=== PATIENT | female | born 1945 | race Caucasian/White ===

== ENCOUNTER 2018-12-24 14:04 | Inpatient (IN) | payer MEDICARE, SELFPAY ==
[2018-12-24] VITALS (7 sets, daily range): BP systolic 127–138; BP diastolic 43–116; PULSE 84–90; RESP 16–20; TEMP 36.7–37.8; O2SAT 92–99; BMI 39.4
--- NOTE | 2018-12-24 14:36 | ED_ITS ---
HPI - Nausea/Vomiting/Diarrhea <JOELLE Taylor - Last Filed: 12/24/18 22:13> General Chief complaint: Nausea/Vomiting/Diarrhea Stated complaint: diarrhea x 2days Time Seen by Provider: 12/24/18 14:23 Source: patient and EMS Mode of arrival: EMS Limitations: no limitations History of Present Illness HPI Narrative: 73-year-old female with history of hypothyroidism and is a nonsmoker here for complaint of diarrhea over the last 2 weeks. She states that she was treated for diarrhea by primary care provider and has not had diarrhea for a couple of days ago. she reports increased weakness today were she was having trouble getting out of bed and has had incontinence today. She denies having any urinary symptoms. No flank pain. She denies having any abdominal pain. She states she has had a positive p.o. intake today and has tolerated well. She states her last bowel movement was a couple of days ago. She denies any bloody diarrhea. She denies any recent travel or recent antibiotics. MD complaint: diarrhea Related Data Home Medications Medication Instructions Recorded Confirmed gabapentin 100 mg PO DAILY 12/24/18 12/24/18 levothyroxine 175 mcg PO DAILY 12/24/18 12/24/18 meloxicam 15 mg PO DAILY 12/24/18 12/24/18 trazodone 50 - 100 mg PO BEDTIME 12/24/18 12/24/18 Allergies Allergy/AdvReac Type Severity Reaction Status Date / Time morphine Allergy Verified 12/24/18 14:17 Review of Systems <JOELLE Taylor - Last Filed: 12/24/18 22:13> Constitutional Denies chills, Denies fever(s), Denies lethargy and Reports weakness Eyes Denies change in vision, Denies eye discharge, Denies irritation and Denies loss of vision ENT Ears, Nose, Mouth, and Throat: Denies change in voice, Denies neck pain and Denies sore throat Cardiovascular Denies chest pain, Denies irregular heart rhythm, Denies lightheadedness, Denies palpitations, Denies dyspnea, Denies dyspnea on exertion and Denies orthopnea Respiratory Denies cough, Denies dyspnea, Denies dyspnea on exertion and Denies wheezing Gastrointestinal Gastrointestinal: Reports diarrhea Genitourinary Denies hematuria, Denies flank pain, Denies urinary incontinence and Denies urinary urgency Musculoskeletal Denies neck pain Integumentary/Breasts Denies pruritus, Denies erythema, Denies rash and Denies wounds Neurologic Denies confusion, Denies loss of vision and Reports weakness Psychiatric Denies anxiety, Denies confusion, Denies depression, Denies homicidal ideation and Denies suicidal ideation Endocrine Denies palpitations Allergic/Immunologic Denies wheezing PFSH <JOELLE Taylor - Last Filed: 12/24/18 22:13> Surgical History History of tonsillectomy Family History Mother Alcohol abuse Family History Mother Alcohol abuse Social History household members: family Smoking Status: Never smoker alcohol intake: never Exam <JOELLE Taylor - Last Filed: 12/24/18 22:13> Initial Vital Signs Initial Vital Signs: Vital Signs Temperature 100.0 F H 12/24/18 14:10 Pulse Rate 89 12/24/18 14:10 Respiratory Rate 20 12/24/18 14:10 Blood Pressure 130/116 H 12/24/18 14:10 Pulse Oximetry 94 12/24/18 14:10 Const General: cooperative and well developed Nutritional Appearance: well nourished Orientation: alert, awake, oriented x3 and not confused HENMT Mouth: oral mucosae normal and No moist mucous membranes Eyes Conjunctivae: conjunctivae normal Sclera: sclerae normal Pupils: PERRL EOM: EOM intact bilaterally Resp Effort & Inspection: normal respiratory effort, able to speak in complete sentences, no respiratory distress and no use of accessory muscles Auscultation: clear to auscultation bilaterally, no rales, no rhonchi and no wheezes Cardio Rate: regular rate Rhythm: regular rhythm Heart Sounds: no click, no gallops, no murmurs and no rubs Pulses: normal peripheral pulses GI Inspection: non-distended Palpation: soft, no hepatosplenomegaly, No guarding, No pulsatile mass and No tender Auscultation: normal bowel sounds General: No CVA tenderness Skin General: no rashes or lesions noted, No jaundice and No petechiae Neuro General: alert, oriented x3, gait normal and no focal motor deficits Speech: speech normal <Ama Adler DO - Last Filed: 12/25/18 08:31> Initial Vital Signs Initial Vital Signs: Vital Signs Temperature 100.0 F H 12/24/18 14:10 Pulse Rate 89 12/24/18 14:10 Respiratory Rate 20 12/24/18 14:10 Blood Pressure 130/116 H 12/24/18 14:10 Pulse Oximetry 94 12/24/18 14:10 Course <JOELLE Taylor - Last Filed: 12/24/18 22:13> Orders Ordered: ED Orders 12/25/18 01:41 GI Panel (Film Array) Stat Stool Culture Stat 12/25/18 05:53 Basic Metabolic Panel Routine Complete Blood Count AUTO DIFF Routine Acetaminophen (Tylenol) 650 mg PO Q6HR PRN PRN Reason: As Needed for Fever/Mild Pain Sodium Chloride (Normal Saline 0.45%) 1,000 mls @ 150 mls/hr IV CONT ALIN Last Admin: 12/25/18 02:20 Dose: 150 mls/hr Infusion: 12/25/18 02:20 Dose: 150 mls/hr Admin: 12/24/18 20:30 Dose: 150 mls/hr Magnesium Hydroxide (Milk Of Magnesia) 30 ml PO DAILY PRN PRN Reason: Constipation Discontinued Medications Sodium Chloride (Normal Saline 0.9%) 1,000 mls @ 1,000 mls/hr IV BOLUS ONE Stop: 12/24/18 15:14 Last Infusion: 12/24/18 16:47 Dose: 0 mls/hr Admin: 12/24/18 15:30 Dose: 1,000 mls/hr Sodium Chloride (Normal Saline 0.9%) 1,000 mls @ 1,000 mls/hr IV BOLUS ONE Stop: 12/24/18 16:08 Last Infusion: 12/24/18 18:49 Dose: 0 mls/hr Admin: 12/24/18 16:46 Dose: 1,000 mls/hr Ciprofloxacin (Cipro) 400 mg in 200 mls @ 200 mls/hr IV NOW ALIN Sodium Chloride (Normal Saline 0.9%) 1,000 mls @ 1,000 mls/hr IV BOLUS ONE Stop: 12/24/18 19:45 Last Admin: 12/24/18 19:23 Dose: 1,000 mls/hr Ondansetron HCl (Zofran) 4 mg IV NOW ONE Stop: 12/24/18 14:16 Last Admin: 12/24/18 16:46 Dose: Not Given Vital Signs - 8 hr 12/25/18 01:41 12/25/18 02:48 12/25/18 06:00 Temperature 97.3 F L Pulse Rate 79 Respiratory Rate 16 Blood Pressure 123/69 Pulse Oximetry 95 97 96 12/25/18 07:44 Temperature 97.9 F Pulse Rate 82 Respiratory Rate 21 Blood Pressure 120/62 Pulse Oximetry 93 <Ama Adler, DO - Last Filed: 12/25/18 08:31> Orders Ordered: ED Orders 12/25/18 01:41 GI Panel (Film Array) Stat Stool Culture Stat 12/25/18 05:53 Basic Metabolic Panel Routine Complete Blood Count AUTO DIFF Routine Acetaminophen (Tylenol) 650 mg PO Q6HR PRN PRN Reason: As Needed for Fever/Mild Pain Sodium Chloride (Normal Saline 0.45%) 1,000 mls @ 150 mls/hr IV CONT ALIN Last Admin: 12/25/18 02:20 Dose: 150 mls/hr Infusion: 12/25/18 02:20 Dose: 150 mls/hr Admin: 12/24/18 20:30 Dose: 150 mls/hr Magnesium Hydroxide (Milk Of Magnesia) 30 ml PO DAILY PRN PRN Reason: Constipation Discontinued Medications Sodium Chloride (Normal Saline 0.9%) 1,000 mls @ 1,000 mls/hr IV BOLUS ONE Stop: 12/24/18 15:14 Last Infusion: 12/24/18 16:47 Dose: 0 mls/hr Admin: 12/24/18 15:30 Dose: 1,000 mls/hr Sodium Chloride (Normal Saline 0.9%) 1,000 mls @ 1,000 mls/hr IV BOLUS ONE Stop: 12/24/18 16:08 Last Infusion: 12/24/18 18:49 Dose: 0 mls/hr Admin: 12/24/18 16:46 Dose: 1,000 mls/hr Ciprofloxacin (Cipro) 400 mg in 200 mls @ 200 mls/hr IV NOW ALIN Sodium Chloride (Normal Saline 0.9%) 1,000 mls @ 1,000 mls/hr IV BOLUS ONE Stop: 12/24/18 19:45 Last Admin: 12/24/18 19:23 Dose: 1,000 mls/hr Ondansetron HCl (Zofran) 4 mg IV NOW ONE Stop: 12/24/18 14:16 Last Admin: 12/24/18 16:46 Dose: Not Given Vital Signs - 8 hr 12/25/18 01:41 12/25/18 02:48 12/25/18 06:00 Temperature 97.3 F L Pulse Rate 79 Respiratory Rate 16 Blood Pressure 123/69 Pulse Oximetry 95 97 96 12/25/18 07:44 Temperature 97.9 F Pulse Rate 82 Respiratory Rate 21 Blood Pressure 120/62 Pulse Oximetry 93 MDM - Nausea/Vomiting/Diarrhea <OJELLE Taylor - Last Filed: 12/24/18 22:13> Lab Data Result diagrams: 12/25/18 05:53 12/25/18 05:53 Lab Results 12/24/18 12/24/18 12/24/18 Range/Units 14:36 14:36 14:36 WBC 12.4 H (4.5-11.0) X10^3/uL RBC 5.04 (4.0-5.2) X10^6/uL Hgb 14.8 (12.0-16.0) g/dL Hct 44.2 (36-46) % MCV 87.8 (80-100) fL MCH 29.3 (26-34) PG MCHC 33.4 (30-36) % RDW 14.8 (11.6-14.8) % Plt Count 149 L (150-400) X10^3/uL Neut % (Auto) Not Reportable Lymph % (Auto) Not Reportable [place] % (Auto) Not Reportable Eos % (Auto) Not Reportable Baso % (Auto) Not Reportable Neut # (Auto) (7948-9037) /uL Lymph # (Auto) Not Reportable [place] # (Auto) Not Reportable Eos # (Auto) (0-450) /uL Baso # (Auto) Not Reportable Total Counted 100 Seg Neutrophils % 64.0 (38-70) % Band Neutrophils % 10.0 H (3-7) % Lymphocytes % (Manual) 14.0 L (25-45) % Atypical Lymphs % 7.0 H ( - 0) % Monocytes % (Manual) 4.0 (2-11) % Eosinophils % (Manual) 1.0 L (2-4) % Neutrophils # (Manual) 9176 H (4632-4676) /uL Platelet Estimate Adequate on smear RBC Morphology Normal morphology Sodium 132 L (137-145) mmol/L Potassium 4.7 (3.4-5.1) mmol/L Chloride 99 (98-107) mmol/L Carbon Dioxide 20 L (22-32) mmol/L BUN 117 H* (7-17) mg/dL Creatinine 2.60 H (0.52-1.04) mg/dL Estimated GFR 18.0 L (>60) mL/min BUN/Creatinine Ratio 45.0 H (6-22) Glucose 119 H (80-110) mg/dL Lactate (0.7-2.1) mmol/L Calcium 8.1 L (8.4-10.2) mg/dL Total Bilirubin 0.8 (0.2-1.3) mg/dL AST 57 H (14-36) IU/L ALT 35 (9-52) IU/L Alkaline Phosphatase 59 (38-126) U/L Total Creatine Kinase 22 L (30-135) U/L CK-MB (CK-2) TNP CK-MB (CK-2) Rel Index TNP Troponin I < 0.012 (0.01-0.034) ng/mL Total Protein 7.2 (6.3-8.2) g/dL Albumin 3.2 L (3.5-5.0) g/dL Globulin 4.0 (1.7-4.1) g/dL Albumin/Globulin Ratio 0.8 L (1.0-2.8) Procalcitonin (<0.5) ng/mL Urine Color Urine Appearance Urine pH (4.5-8.0) Ur Specific [place] (1.000-1.035) Urine Protein (Negative) Urine Glucose (UA) (Negative) g/dL Urine Ketones (NEGATIVE) Urine Occult Blood (Negative) Urine Nitrate (Negative) Urine Bilirubin (NEGATIVE) Urine Ictotest (Negative) Urine Urobilinogen (0.2) E.U./dL Ur Leukocyte Esterase (NEGATIVE) Urine RBC (0-5/HPF) Urine WBC (0-5/HPF) Amorphous Sediment Urine Bacteria (None) Hyaline Casts (None) Ur Culture Indicated? 12/24/18 12/24/18 12/24/18 Range/Units 14:36 14:36 17:25 WBC (4.5-11.0) X10^3/uL RBC (4.0-5.2) X10^6/uL Hgb (12.0-16.0) g/dL Hct (36-46) % MCV (80-100) fL MCH (26-34) PG MCHC (30-36) % RDW (11.6-14.8) % Plt Count (150-400) X10^3/uL Neut % (Auto) Lymph % (Auto) [place] % (Auto) Eos % (Auto) Baso % (Auto) Neut # (Auto) (5554-0609) /uL Lymph # (Auto) [place] # (Auto) Eos # (Auto) (0-450) /uL Baso # (Auto) Total Counted Seg Neutrophils % (38-70) % Band Neutrophils % (3-7) % Lymphocytes % (Manual) (25-45) % Atypical Lymphs % ( - 0) % Monocytes % (Manual) (2-11) % Eosinophils % (Manual) (2-4) % Neutrophils # (Manual) (6768-0536) /uL Platelet Estimate RBC Morphology Sodium (137-145) mmol/L Potassium (3.4-5.1) mmol/L Chloride (98-107) mmol/L Carbon Dioxide (22-32) mmol/L BUN (7-17) mg/dL Creatinine (0.52-1.04) mg/dL Estimated GFR (>60) mL/min BUN/Creatinine Ratio (6-22) Glucose (80-110) mg/dL Lactate 1.3 (0.7-2.1) mmol/L Calcium (8.4-10.2) mg/dL Total Bilirubin (0.2-1.3) mg/dL AST (14-36) IU/L ALT (9-52) IU/L Alkaline Phosphatase (38-126) U/L Total Creatine Kinase (30-135) U/L CK-MB (CK-2) CK-MB (CK-2) Rel Index Troponin I (0.01-0.034) ng/mL Total Protein (6.3-8.2) g/dL Albumin (3.5-5.0) g/dL Globulin (1.7-4.1) g/dL Albumin/Globulin Ratio (1.0-2.8) Procalcitonin 0.54 H (<0.5) ng/mL Urine Color Yellow Urine Appearance Cloudy Urine pH 5.0 (4.5-8.0) Ur Specific [place] 1.025 (1.000-1.035) Urine Protein 3+ H (Negative) Urine Glucose (UA) Negative (Negative) g/dL Urine Ketones Negative (NEGATIVE) Urine Occult Blood 3+ H (Negative) Urine Nitrate Negative (Negative) Urine Bilirubin 1+ H (NEGATIVE) Urine Ictotest Positive H (Negative) Urine Urobilinogen 0.2 (0.2) E.U./dL Ur Leukocyte Esterase Trace H (NEGATIVE) Urine RBC 10-30/hpf H (0-5/HPF) Urine WBC 5-10/hpf H (0-5/HPF) Amorphous Sediment 2+ Urine Bacteria None seen (None) Hyaline Casts 5-10/lpf (None) Ur Culture Indicated? Specimen cultured 12/25/18 12/25/18 Range/Units 05:53 05:53 WBC 8.3 (4.5-11.0) X10^3/uL RBC 4.57 (4.0-5.2) X10^6/uL Hgb 13.4 (12.0-16.0) g/dL Hct 40.1 (36-46) % MCV 87.7 (80-100) fL MCH 29.2 (26-34) PG MCHC 33.4 (30-36) % RDW 15.1 H (11.6-14.8) % Plt Count 156 (150-400) X10^3/uL Neut % (Auto) 71.1 Lymph % (Auto) 21.4 L [place] % (Auto) 5.7 Eos % (Auto) 0.7 L Baso % (Auto) 1.1 Neut # (Auto) 5900 (2604-0977) /uL Lymph # (Auto) 1800 [place] # (Auto) 500 Eos # (Auto) 100 (0-450) /uL Baso # (Auto) 100 Total Counted Seg Neutrophils % (38-70) % Band Neutrophils % (3-7) % Lymphocytes % (Manual) (25-45) % Atypical Lymphs % ( - 0) % Monocytes % (Manual) (2-11) % Eosinophils % (Manual) (2-4) % Neutrophils # (Manual) (6725-8879) /uL Platelet Estimate RBC Morphology Sodium 129 L (137-145) mmol/L Potassium 4.8 (3.4-5.1) mmol/L Chloride 102 (98-107) mmol/L Carbon Dioxide 17 L (22-32) mmol/L BUN 114 H* (7-17) mg/dL Creatinine 2.50 H (0.52-1.04) mg/dL Estimated GFR 18.9 L (>60) mL/min BUN/Creatinine Ratio 45.6 H (6-22) Glucose 117 H (80-110) mg/dL Lactate (0.7-2.1) mmol/L Calcium 7.4 L (8.4-10.2) mg/dL Total Bilirubin (0.2-1.3) mg/dL AST (14-36) IU/L ALT (9-52) IU/L Alkaline Phosphatase (38-126) U/L Total Creatine Kinase (30-135) U/L CK-MB (CK-2) CK-MB (CK-2) Rel Index Troponin I (0.01-0.034) ng/mL Total Protein (6.3-8.2) g/dL Albumin (3.5-5.0) g/dL Globulin (1.7-4.1) g/dL Albumin/Globulin Ratio (1.0-2.8) Procalcitonin (<0.5) ng/mL Urine Color Urine Appearance Urine pH (4.5-8.0) Ur Specific [place] (1.000-1.035) Urine Protein (Negative) Urine Glucose (UA) (Negative) g/dL Urine Ketones (NEGATIVE) Urine Occult Blood (Negative) Urine Nitrate (Negative) Urine Bilirubin (NEGATIVE) Urine Ictotest (Negative) Urine Urobilinogen (0.2) E.U./dL Ur Leukocyte Esterase (NEGATIVE) Urine RBC (0-5/HPF) Urine WBC (0-5/HPF) Amorphous Sediment Urine Bacteria (None) Hyaline Casts (None) Ur Culture Indicated? Imaging Data CT scan - abdomen: Radiologist's impression: [address] [place] [id number] Scan Report Signed Patient: Daniela De Souza BMR#: [id number] : 5Acct:[id number] Age/Sex: 73 / FDate of Service: 12/24/18 Loc: ED Accession Number: [id number] Procedure: CT abdomen pelvis wo con Ordering Provider: Ar Arguelles PROCEDURE: CT ABDOMEN PELVIS WO CON INDICATIONS: weakness, diarrhea, elevated BUN decreased GFR TECHNIQUE: Noncontrast 5 mm thick sections acquired from the diaphragms to the symphysis. 5 mm coronal and sagittal reformats were then performed. For radiation dose reduction, the following was used: automated exposure control, adjustment of mA and/or kV according to patient size. COMPARISON: None. FINDINGS: Image quality: There is motion artifact limiting evaluation.. ABDOMEN: Lung bases: A small right pleural effusion is demonstrated with mild associated compressive atelectasis. Mild dependent atelectasis also demonstrated in the left base. Heart size is normal. Solid organs: The liver is nodular in contour suggestive of cirrhosis. Noncontrast evaluation demonstrates no definite focal hepatic lesions. There are a few small dependent calcified gallstones in the gallbladder which is partially distended. Suggestion of mild gallbladder wall thickening which is nonspecific. Pancreas is normal in contours. Spleen is enlarged, measuring up to 14.5 cm. No adrenal nodules. Kidneys demonstrate no hydronephrosis. Peritoneum and bowel: Small bowel loops demonstrate normal wall thickness and caliber. There is short segment of mild wall thickening involving the ascending and sigmoid colon suggestive of a mild nonspecific colitis. There is colonic diverticulosis without acute diverticulitis. A small amount of free fluid is demonstrated within the abdomen and pelvis. Nodes and vessels: No retroperitoneal or mesenteric adenopathy by size criteria. Aorta and inferior vena cava are normal in caliber. There are multiple prominent splenic varices. There also prominent varices within the left paracolic gutter. Miscellaneous: No ventral hernias. PELVIS: Genitourinary: Bladder wall thickness is normal. Miscellaneous: No inguinal hernias or adenopathy. Bones: No suspicious bony lesions. No vertebral body compression fractures. IMPRESSION: 1. Mild segmental wall thickening involving the ascending and sigmoid colon suggestive of a mild infectious or inflammatory colitis. There is colonic diverticulosis without definite acute diverticulitis. 2. Small right pleural effusion. 3. Findings consistent with cirrhosis and portal hypertension including spinal megaly, prominent varices, and mild ascites. 4. Cholelithiasis without definite CT evidence of cholecystitis. Further evaluation maybe obtained with ultrasound if clinically indicated. Dictated by: rTistian Francisco M.D. on 12/24/2018 at 15:48 Approved by: Tristian Francisco M.D. on 12/24/2018 at 15:52 CT scan - head: Radiologist's impression: [address] [address] [address] Scan Report Signed Patient: Daniela De Souza BMR#: [id number] : 5Acct:[id number] Age/Sex: 73 / FDate of Service: 12/24/18 Loc: ED Accession Number: [id number] Procedure: CT head/brain wo con Ordering Provider: Ar Arguelles PROCEDURE: CT HEAD/BRAIN WO CON INDICATIONS: Weakness TECHNIQUE: Noncontrast 4.5 mm thick angled axial sections acquired from the foramen magnum to the vertex, with coronal and sagittal reformats. For radiation dose reduction, the following was used: automated exposure control, adjustment of mA and/or kV according to patient size. COMPARISON: [facility], CR, XR CHEST 1V, 12/24/2018, 15:13. [facility], CT, SINUS SCREEN, 02/24/2008, 8:19. FINDINGS: Image quality: This examination is limited by involuntary motion artifact. CSF spaces: Basal cisterns are patent. No extra-axial fluid collections. The ventricles are symmetric in size and shape. Brain: No intracranial bleeds or masses. There is cerebral volume loss for age, with resultant ventricular and sulcal prominence. There are periventricular and deep white matter chronic small vessel ischemic changes. There is intracranial internal carotid artery atherosclerosis. Skull and face: Calvarium and visualized facial bones appear intact, without suspicious lesions. Sinuses: Visualized sinuses and mastoids are clear. IMPRESSION: No definite, acute intracranial abnormality is seen. Note is made of age-appropriate brain parenchymal volume loss and chronic small vessel ischemic changes. Dictated by: Negro Zepeda M.D. on 12/24/2018 at 14:43 Approved by: Negro Zepeda M.D. on 12/24/2018 at 14:44 Chest x-ray: Radiologist's impression: [address] [address] XRay Report Signed Patient: Daniela De Souza BMR#: [id number] : 5Acct:[id number] Age/Sex: 73 / FDate of Service: 12/24/18 Loc: ED Accession Number: [id number] Procedure: XR chest 1V Ordering Provider: Ar Arguelles PROCEDURE: XR CHEST 1V INDICATIONS: weakness TECHNIQUE: One view of the chest was acquired. COMPARISON: None. FINDINGS: Surgical changes and devices: None. Lungs and pleura: Increased pulmonary vascularity is present. No pleural effusions or pneumothorax. Mediastinum: Mediastinal contours appear normal. Heart size is normal. Bones and chest wall: No suspicious bony lesions. Overlying soft tissues appear unremarkable. IMPRESSION: Increased vascularity suggestive of edema. Dictated by: Serena Walter M.D. on 12/24/2018 at 15:36 Approved by: Serena Walter M.D. on 12/24/2018 at 15:36 ECG Data Interpretation: EKG shows sinus rhythm with no ST elevation or depression. No ectopy. Ventricular rate of 88. Pr interval 170. QRS duration of 81. QTC 393. MDM Narrative Medical decision making narrative: CBC was obtained shows elevated white count of 12.4. Also shows elevated neutrophils otherwise is unremarkable. Shows critical elevated BUN of 117. Also with decreased GFR of 18. procalcitonin was 0.54. Lactate was normal. EKG shows sinus rhythm with no ST elevation or depression. Chest x-ray was unremarkable. cardiac enzymes were obtained were unremarkable. Urinalysis is pending. CT of the abdomen shows colonic wall thickening indicating inflammation/ infection. suspect diarrhea causing dehydration and renal failure. She is admitted for rehydration and possible IV antibiotics for treatment. hospitalist accepted patient <Ama Adler DO - Last Filed: 12/25/18 08:31> Lab Data Lab Results 12/24/18 12/24/18 12/24/18 Range/Units 14:36 14:36 14:36 WBC 12.4 H (4.5-11.0) X10^3/uL RBC 5.04 (4.0-5.2) X10^6/uL Hgb 14.8 (12.0-16.0) g/dL Hct 44.2 (36-46) % MCV 87.8 (80-100) fL MCH 29.3 (26-34) PG MCHC 33.4 (30-36) % RDW 14.8 (11.6-14.8) % Plt Count 149 L (150-400) X10^3/uL Neut % (Auto) Not Reportable Lymph % (Auto) Not Reportable [place] % (Auto) Not Reportable Eos % (Auto) Not Reportable Baso % (Auto) Not Reportable Neut # (Auto) (8854-6833) /uL Lymph # (Auto) Not Reportable [place] # (Auto) Not Reportable Eos # (Auto) (0-450) /uL Baso # (Auto) Not Reportable Total Counted 100 Seg Neutrophils % 64.0 (38-70) % Band Neutrophils % 10.0 H (3-7) % Lymphocytes % (Manual) 14.0 L (25-45) % Atypical Lymphs % 7.0 H ( - 0) % Monocytes % (Manual) 4.0 (2-11) % Eosinophils % (Manual) 1.0 L (2-4) % Neutrophils # (Manual) 9176 H (4663-3534) /uL Platelet Estimate Adequate on smear RBC Morphology Normal morphology Sodium 132 L (137-145) mmol/L Potassium 4.7 (3.4-5.1) mmol/L Chloride 99 (98-107) mmol/L Carbon Dioxide 20 L (22-32) mmol/L BUN 117 H* (7-17) mg/dL Creatinine 2.60 H (0.52-1.04) mg/dL Estimated GFR 18.0 L (>60) mL/min BUN/Creatinine Ratio 45.0 H (6-22) Glucose 119 H (80-110) mg/dL Lactate (0.7-2.1) mmol/L Calcium 8.1 L (8.4-10.2) mg/dL Total Bilirubin 0.8 (0.2-1.3) mg/dL AST 57 H (14-36) IU/L ALT 35 (9-52) IU/L Alkaline Phosphatase 59 (38-126) U/L Total Creatine Kinase 22 L (30-135) U/L CK-MB (CK-2) TNP CK-MB (CK-2) Rel Index TNP Troponin I < 0.012 (0.01-0.034) ng/mL Total Protein 7.2 (6.3-8.2) g/dL Albumin 3.2 L (3.5-5.0) g/dL Globulin 4.0 (1.7-4.1) g/dL Albumin/Globulin Ratio 0.8 L (1.0-2.8) Procalcitonin (<0.5) ng/mL Urine Color Urine Appearance Urine pH (4.5-8.0) Ur Specific [place] (1.000-1.035) Urine Protein (Negative) Urine Glucose (UA) (Negative) g/dL Urine Ketones (NEGATIVE) Urine Occult Blood (Negative) Urine Nitrate (Negative) Urine Bilirubin (NEGATIVE) Urine Ictotest (Negative) Urine Urobilinogen (0.2) E.U./dL Ur Leukocyte Esterase (NEGATIVE) Urine RBC (0-5/HPF) Urine WBC (0-5/HPF) Amorphous Sediment Urine Bacteria (None) Hyaline Casts (None) Ur Culture Indicated? 12/24/18 12/24/18 12/24/18 Range/Units 14:36 14:36 17:25 WBC (4.5-11.0) X10^3/uL RBC (4.0-5.2) X10^6/uL Hgb (12.0-16.0) g/dL Hct (36-46) % MCV (80-100) fL MCH (26-34) PG MCHC (30-36) % RDW (11.6-14.8) % Plt Count (150-400) X10^3/uL Neut % (Auto) Lymph % (Auto) [place] % (Auto) Eos % (Auto) Baso % (Auto) Neut # (Auto) (5210-6040) /uL Lymph # (Auto) [place] # (Auto) Eos # (Auto) (0-450) /uL Baso # (Auto) Total Counted Seg Neutrophils % (38-70) % Band Neutrophils % (3-7) % Lymphocytes % (Manual) (25-45) % Atypical Lymphs % ( - 0) % Monocytes % (Manual) (2-11) % Eosinophils % (Manual) (2-4) % Neutrophils # (Manual) (7682-0429) /uL Platelet Estimate RBC Morphology Sodium (137-145) mmol/L Potassium (3.4-5.1) mmol/L Chloride (98-107) mmol/L Carbon Dioxide (22-32) mmol/L BUN (7-17) mg/dL Creatinine (0.52-1.04) mg/dL Estimated GFR (>60) mL/min BUN/Creatinine Ratio (6-22) Glucose (80-110) mg/dL Lactate 1.3 (0.7-2.1) mmol/L Calcium (8.4-10.2) mg/dL Total Bilirubin (0.2-1.3) mg/dL AST (14-36) IU/L ALT (9-52) IU/L Alkaline Phosphatase (38-126) U/L Total Creatine Kinase (30-135) U/L CK-MB (CK-2) CK-MB (CK-2) Rel Index Troponin I (0.01-0.034) ng/mL Total Protein (6.3-8.2) g/dL Albumin (3.5-5.0) g/dL Globulin (1.7-4.1) g/dL Albumin/Globulin Ratio (1.0-2.8) Procalcitonin 0.54 H (<0.5) ng/mL Urine Color Yellow Urine Appearance Cloudy Urine pH 5.0 (4.5-8.0) Ur Specific [place] 1.025 (1.000-1.035) Urine Protein 3+ H (Negative) Urine Glucose (UA) Negative (Negative) g/dL Urine Ketones Negative (NEGATIVE) Urine Occult Blood 3+ H (Negative) Urine Nitrate Negative (Negative) Urine Bilirubin 1+ H (NEGATIVE) Urine Ictotest Positive H (Negative) Urine Urobilinogen 0.2 (0.2) E.U./dL Ur Leukocyte Esterase Trace H (NEGATIVE) Urine RBC 10-30/hpf H (0-5/HPF) Urine WBC 5-10/hpf H (0-5/HPF) Amorphous Sediment 2+ Urine Bacteria None seen (None) Hyaline Casts 5-10/lpf (None) Ur Culture Indicated? Specimen cultured 12/25/18 12/25/18 Range/Units 05:53 05:53 WBC 8.3 (4.5-11.0) X10^3/uL RBC 4.57 (4.0-5.2) X10^6/uL Hgb 13.4 (12.0-16.0) g/dL Hct 40.1 (36-46) % MCV 87.7 (80-100) fL MCH 29.2 (26-34) PG MCHC 33.4 (30-36) % RDW 15.1 H (11.6-14.8) % Plt Count 156 (150-400) X10^3/uL Neut % (Auto) 71.1 Lymph % (Auto) 21.4 L [place] % (Auto) 5.7 Eos % (Auto) 0.7 L Baso % (Auto) 1.1 Neut # (Auto) 5900 (7743-0003) /uL Lymph # (Auto) 1800 [place] # (Auto) 500 Eos # (Auto) 100 (0-450) /uL Baso # (Auto) 100 Total Counted Seg Neutrophils % (38-70) % Band Neutrophils % (3-7) % Lymphocytes % (Manual) (25-45) % Atypical Lymphs % ( - 0) % Monocytes % (Manual) (2-11) % Eosinophils % (Manual) (2-4) % Neutrophils # (Manual) (8081-4418) /uL Platelet Estimate RBC Morphology Sodium 129 L (137-145) mmol/L Potassium 4.8 (3.4-5.1) mmol/L Chloride 102 (98-107) mmol/L Carbon Dioxide 17 L (22-32) mmol/L BUN 114 H* (7-17) mg/dL Creatinine 2.50 H (0.52-1.04) mg/dL Estimated GFR 18.9 L (>60) mL/min BUN/Creatinine Ratio 45.6 H (6-22) Glucose 117 H (80-110) mg/dL Lactate (0.7-2.1) mmol/L Calcium 7.4 L (8.4-10.2) mg/dL Total Bilirubin (0.2-1.3) mg/dL AST (14-36) IU/L ALT (9-52) IU/L Alkaline Phosphatase (38-126) U/L Total Creatine Kinase (30-135) U/L CK-MB (CK-2) CK-MB (CK-2) Rel Index Troponin I (0.01-0.034) ng/mL Total Protein (6.3-8.2) g/dL Albumin (3.5-5.0) g/dL Globulin (1.7-4.1) g/dL Albumin/Globulin Ratio (1.0-2.8) Procalcitonin (<0.5) ng/mL Urine Color Urine Appearance Urine pH (4.5-8.0) Ur Specific [place] (1.000-1.035) Urine Protein (Negative) Urine Glucose (UA) (Negative) g/dL Urine Ketones (NEGATIVE) Urine Occult Blood (Negative) Urine Nitrate (Negative) Urine Bilirubin (NEGATIVE) Urine Ictotest (Negative) Urine Urobilinogen (0.2) E.U./dL Ur Leukocyte Esterase (NEGATIVE) Urine RBC (0-5/HPF) Urine WBC (0-5/HPF) Amorphous Sediment Urine Bacteria (None) Hyaline Casts (None) Ur Culture Indicated? Discharge Plan Departure Patient Disposition: Admitted As Inpatient Clinical Impression: Dehydration Diarrhea Qualifiers: Diarrhea type: unspecified type Qualified Code(s): R19.7 - Diarrhea, unspecified Acute renal failure Qualifiers: Acute renal failure type: unspecified Qualified Code(s): N17.9 - Acute kidney failure, unspecified Discharge Date/Time: 12/24/18 18:51 Interventions: ED Discharge Assessment Last Done: 12/24/18 18:48 Admit Date/Time: 12/24/18 17:39 Admit Provider: Herson Williamson <Ama Adler DO - Last Filed: 12/25/18 08:31> Cosign ED Attending Cosignature Attestation: I was immediately available in the department for consultation, case was discussed, plan for admission to Dr. Williamson. This documentation has been reviewed and I agree with assessment and plan. Supervised by Ama Adler DO
[2018-12-24 14:57] LABS: Alanine Aminotransferase 35 IU/L (9-52); Albumin 3.2 g/dL (3.5-5.0); Albumin Globulin Ratio 0.8 (1.0-2.8); Alkaline Phosphatase 59 U/L (38-126); Aspartate Aminotransferase 57 IU/L (14-36); Bilirubin Total 0.8 mg/dL (0.2-1.3); Calcium 8.1 mg/dL (8.4-10.2); Carbon Dioxide 20 mmol/L (22-32); Chloride 99 mmol/L (98-107); Glucose 119 mg/dL (80-110); HEMOLYSIS < 15 (0-50); Potassium 4.7 mmol/L (3.4-5.1); Sodium 132 mmol/L (137-145); Total Protein 7.2 g/dL (6.3-8.2)
[2018-12-24 14:58] LABS: Hematocrit 44.2 % (36-46); Hemoglobin 14.8 g/dL (12.0-16.0); Mean Corpuscular HGB Conc 33.4 % (30-36); Mean Corpuscular Hemoglobin 29.3 PG (26-34); Mean Corpuscular Volume 87.8 fL (80-100); Platelet Count 149 X10^3/uL (150-400); Red Blood Cell Count 5.04 X10^6/uL (4.0-5.2); Red Cell Distribution Width 14.8 % (11.6-14.8); White Blood Cell Count 12.4 X10^3/uL (4.5-11.0)
[2018-12-24 15:00] LABS: Blood Urea Nitrogen 117 mg/dL (7-17)
[2018-12-24 15:01] LABS: Add Manual Diff / Slide Review YES
[2018-12-24 15:07] LABS: Neutrophils Absolute Manual 9176 /uL (3000-5900); Total Cells Counted 100
[2018-12-24 15:09] LABS: Platelet Estimate Adequate on smear; RBC Morphology Normal Morphology
--- NOTE | 2018-12-24 15:09 | DI.CT.S_ITS ---
PROCEDURE: CT HEAD/BRAIN WO CON INDICATIONS: Weakness TECHNIQUE: Noncontrast 4.5 mm thick angled axial sections acquired from the foramen magnum to the vertex, with coronal and sagittal reformats. For radiation dose reduction, the following was used: automated exposure control, adjustment of mA and/or kV according to patient size. COMPARISON: [facility], CR, XR CHEST 1V, 12/24/2018, 15:13. [facility], CT, SINUS SCREEN, 02/24/2008, 8:19. FINDINGS: Image quality: This examination is limited by involuntary motion artifact. CSF spaces: Basal cisterns are patent. No extra-axial fluid collections. The ventricles are symmetric in size and shape. Brain: No intracranial bleeds or masses. There is cerebral volume loss for age, with resultant ventricular and sulcal prominence. There are periventricular and deep white matter chronic small vessel ischemic changes. There is intracranial internal carotid artery atherosclerosis. Skull and face: Calvarium and visualized facial bones appear intact, without suspicious lesions. Sinuses: Visualized sinuses and mastoids are clear. IMPRESSION: No definite, acute intracranial abnormality is seen. Note is made of age-appropriate brain parenchymal volume loss and chronic small vessel ischemic changes. Dictated by: Negro Zepeda M.D. on 12/24/2018 at 14:43 Approved by: Negro Zepeda M.D. on 12/24/2018 at 14:44
--- NOTE | 2018-12-24 15:10 | DI.RAD.S_ITS ---
PROCEDURE: XR CHEST 1V INDICATIONS: weakness TECHNIQUE: One view of the chest was acquired. COMPARISON: None. FINDINGS: Surgical changes and devices: None. Lungs and pleura: Increased pulmonary vascularity is present. No pleural effusions or pneumothorax. Mediastinum: Mediastinal contours appear normal. Heart size is normal. Bones and chest wall: No suspicious bony lesions. Overlying soft tissues appear unremarkable. IMPRESSION: Increased vascularity suggestive of edema. Dictated by: Serena Walter M.D. on 12/24/2018 at 15:36 Approved by: Serena Walter M.D. on 12/24/2018 at 15:36
--- NOTE | 2018-12-24 15:12 | DI.CT.S_ITS ---
PROCEDURE: CT ABDOMEN PELVIS WO CON INDICATIONS: weakness, diarrhea, elevated BUN decreased GFR TECHNIQUE: Noncontrast 5 mm thick sections acquired from the diaphragms to the symphysis. 5 mm coronal and sagittal reformats were then performed. For radiation dose reduction, the following was used: automated exposure control, adjustment of mA and/or kV according to patient size. COMPARISON: None. FINDINGS: Image quality: There is motion artifact limiting evaluation.. ABDOMEN: Lung bases: A small right pleural effusion is demonstrated with mild associated compressive atelectasis. Mild dependent atelectasis also demonstrated in the left base. Heart size is normal. Solid organs: The liver is nodular in contour suggestive of cirrhosis. Noncontrast evaluation demonstrates no definite focal hepatic lesions. There are a few small dependent calcified gallstones in the gallbladder which is partially distended. Suggestion of mild gallbladder wall thickening which is nonspecific. Pancreas is normal in contours. Spleen is enlarged, measuring up to 14.5 cm. No adrenal nodules. Kidneys demonstrate no hydronephrosis. Peritoneum and bowel: Small bowel loops demonstrate normal wall thickness and caliber. There is short segment of mild wall thickening involving the ascending and sigmoid colon suggestive of a mild nonspecific colitis. There is colonic diverticulosis without acute diverticulitis. A small amount of free fluid is demonstrated within the abdomen and pelvis. Nodes and vessels: No retroperitoneal or mesenteric adenopathy by size criteria. Aorta and inferior vena cava are normal in caliber. There are multiple prominent splenic varices. There also prominent varices within the left paracolic gutter. Miscellaneous: No ventral hernias. PELVIS: Genitourinary: Bladder wall thickness is normal. Miscellaneous: No inguinal hernias or adenopathy. Bones: No suspicious bony lesions. No vertebral body compression fractures. IMPRESSION: 1. Mild segmental wall thickening involving the ascending and sigmoid colon suggestive of a mild infectious or inflammatory colitis. There is colonic diverticulosis without definite acute diverticulitis. 2. Small right pleural effusion. 3. Findings consistent with cirrhosis and portal hypertension including spinal megaly, prominent varices, and mild ascites. 4. Cholelithiasis without definite CT evidence of cholecystitis. Further evaluation maybe obtained with ultrasound if clinically indicated. Dictated by: Tristian Francisco M.D. on 12/24/2018 at 15:48 Approved by: Tristian Francisco M.D. on 12/24/2018 at 15:52
[2018-12-24 15:29] LABS: Creatine Kinase 22 U/L (30-135)
[2018-12-24] MEDS: SODIUM CHLORIDE 0.9% 1,000 ML 1000 ML IV ×3 (15:30→19:23)
[2018-12-24 15:32] LABS: Lactate (Lactic Acid) 1.3 mmol/L (0.7-2.1)
[2018-12-24 15:44] LABS: Troponin I < 0.012 ng/mL (0.01-0.034)
[2018-12-24 15:49] LABS: Procalcitonin 0.54 ng/mL (<0.5)
--- NOTE | 2018-12-24 16:18 | PC.NURSE ---
assisted the nurse to change patient into clean linens and provided destiney care. Patient is resting comfortably now.
--- NOTE | 2018-12-24 17:12 | PC.NURSE ---
At this time I attempted to see if patient could get up to commode to provide urine specimen. She is unable to move her legs, they appear to be large and swollen. JOELLE Arguelles aware and sauceda catheter ordered.
--- NOTE | 2018-12-24 18:51 | PM.HP.1 ---
History of Present Illness Date Patient Seen: 12/24/18 Chief complaint: diarrhea x 2days Narrative: Patient is a 73-year-old female who was brought to emergency department due to severe weakness and recent diarrhea. Patient reports onset of severe watery diarrhea 2 weeks prior to admission. She reports 10 or more watery nonbloody bowel movements a day. She also had some fever. Denies much abdominal pain other than mild cramping. Had 1 or 2 episodes of vomiting but predominantly symptom was diarrhea. She took 2 Imodium tablets yesterday and the diarrhea has stopped. However, she has gotten progressively weak to the point where unable to get out of bed today and found incontinent. Patient denies recent travel. She denies a cough, urinary burning or urgency. Noncontrast abdomen and pelvic CT showed mild bowel thickening of ascending and sigmoid colon, also noted were findings of cirrhosis and portal hypertension with mild ascites and a mild right pleural effusion. Head CT without acute findings. Chest x-ray with increased vascularity suggestive of edema. On blood work, patient was noted to be in acute renal failure with BUN 117, creatinine 2.60. Potassium 4.7, normal. WBC 12.4 with slight left shift. Past medical/surgical history: Hypothyroidism, tonsillectomy Patient History Surgical History History of tonsillectomy Family History Mother Alcohol abuse Family & Social History Family History Mother Alcohol abuse Safety & Behavioral: Feels Safe in Current Yes Environment Been Physically Hurt or No Threatened By a Person Meds Home Medications Medication Instructions Recorded Confirmed Type gabapentin 100 mg PO DAILY 12/24/18 12/24/18 History levothyroxine 175 mcg PO DAILY 12/24/18 12/24/18 History meloxicam 15 mg PO DAILY 12/24/18 12/24/18 History trazodone 50 - 100 mg PO BEDTIME 12/24/18 12/24/18 History Allergies Allergy/AdvReac Type Severity Reaction Status Date / Time morphine Allergy Verified 12/24/18 14:17 Review of Systems Review of Systems All systems reviewed & are unremarkable except as noted in HPI and below Exam Vital Signs (past 8 hours): - 12/24/18 14:10 12/24/18 15:12 12/24/18 16:17 Temperature 100.0 F H Pulse Rate 89 87 87 Respiratory Rate 20 16 20 Blood Pressure 130/116 H Blood Pressure [Right Arm] 137/71 133/70 Pulse Oximetry 94 92 99 12/24/18 17:00 12/24/18 18:00 Temperature Pulse Rate 87 88 Respiratory Rate 16 17 Blood Pressure Blood Pressure [Right Arm] 129/67 128/69 Pulse Oximetry 98 99 Oxygen Delivery Method Room Air Narrative Exam Narrative: GENERAL: Alert very pleasant female who is cooperative HEAD: Atraumatic. Normocephalic. EYES: Pupils equal, round and reactive. Extraocular motions intact. No scleral icterus. No injection or drainage. OROPHARYNX: Dry oral mucosa NECK: Trachea midline. No JVD or lymphadenopathy. CARDIOVASCULAR: Regular rate and rhythm without murmurs, gallops, or rubs. RESPIRATORY: Clear to auscultation bilaterally. GASTROINTESTINAL: Abdomen obese, nondistended, soft, non-tender. No hepato-splenomegaly, or palpable masses. EXTREMITIES: No pitting edema. NEUROLOGICAL: Alert, well oriented, speech is intact, generalized weakness without focal deficit SKIN: warm, dry, no rash Objective Imaging CT scan - abdomen: Radiologist's impression: Noncontrast CT:1. Mild segmental wall thickening involving the ascending and sigmoid colon suggestive of a mild infectious or inflammatory colitis. There is colonic diverticulosis without definite acute diverticulitis. 2. Small right pleural effusion. 3. Findings consistent with cirrhosis and portal hypertension including spinal megaly, prominent varices, and mild ascites. 4. Cholelithiasis without definite CT evidence of cholecystitis. Further evaluation maybe obtained with ultrasound if clinically indicated. Labs Result Diagrams: 12/24/18 14:36 12/24/18 14:36 Labs: Laboratory Results - last 24 hr 12/24/18 12/24/18 12/24/18 14:36 14:36 14:36 WBC 12.4 H RBC 5.04 Hgb 14.8 Hct 44.2 MCV 87.8 MCH 29.3 MCHC 33.4 RDW 14.8 Plt Count 149 L Neut % (Auto) Not Reportable Lymph % (Auto) Not Reportable [place] % (Auto) Not Reportable Eos % (Auto) Not Reportable Baso % (Auto) Not Reportable Lymph # (Auto) Not Reportable [place] # (Auto) Not Reportable Baso # (Auto) Not Reportable Total Counted 100 Seg Neutrophils % 64.0 Band Neutrophils % 10.0 H Lymphocytes % (Manual) 14.0 L Atypical Lymphs % 7.0 H Monocytes % (Manual) 4.0 Eosinophils % (Manual) 1.0 L Neutrophils # (Manual) 9176 H Platelet Estimate Adequate on smear RBC Morphology Normal morphology Sodium 132 L Potassium 4.7 Chloride 99 Carbon Dioxide 20 L BUN 117 H* Creatinine 2.60 H Estimated GFR 18.0 L BUN/Creatinine Ratio 45.0 H Glucose 119 H Lactate Calcium 8.1 L Total Bilirubin 0.8 AST 57 H ALT 35 Alkaline Phosphatase 59 Total Creatine Kinase 22 L CK-MB (CK-2) TNP CK-MB (CK-2) Rel Index TNP Troponin I < 0.012 Total Protein 7.2 Albumin 3.2 L Globulin 4.0 Albumin/Globulin Ratio 0.8 L Procalcitonin 12/24/18 12/24/18 14:36 14:36 WBC RBC Hgb Hct MCV MCH MCHC RDW Plt Count Neut % (Auto) Lymph % (Auto) [place] % (Auto) Eos % (Auto) Baso % (Auto) Lymph # (Auto) [place] # (Auto) Baso # (Auto) Total Counted Seg Neutrophils % Band Neutrophils % Lymphocytes % (Manual) Atypical Lymphs % Monocytes % (Manual) Eosinophils % (Manual) Neutrophils # (Manual) Platelet Estimate RBC Morphology Sodium Potassium Chloride Carbon Dioxide BUN Creatinine Estimated GFR BUN/Creatinine Ratio Glucose Lactate 1.3 Calcium Total Bilirubin AST ALT Alkaline Phosphatase Total Creatine Kinase CK-MB (CK-2) CK-MB (CK-2) Rel Index Troponin I Total Protein Albumin Globulin Albumin/Globulin Ratio Procalcitonin 0.54 H Assessment & Plan Assessment Narrative: This is a 73-year-old female presents with 2 week history of severe diarrhea, now resolved, and profound weakness. Noted to be in acute renal failure. 1. Acute kidney injury, pre renal -admit BUN 117, creatinine 2.6; baseline BUN 12, creatinine 0.6 -patient is severely volume depleted due to diarrhea, urine concentrated and quite dark, CK normal rules out rhabdo -administer total 3 L normal saline bolus followed by NSS at 150 cc/hour -monitor urine output with Nesbitt catheter due to incontinence -repeat BMP in a.m. 2. Gastroenteritis -likely infectious, CT findings of mild thickening of ascending and sigmoid colon -diarrhea now resolved -follow clinically 3. CT findings of cirrhosis with portal hypertension, prominent varices and mild ascites -addressed further with patient regarding ETOH history, hepatitis-C risk factors and whether this is known diagnosis 4. Mild leukocytosis -likely secondary to infectious colitis -no obvious infection, has low-grade temp 100.0?, chest x-ray without focal infiltrate, urinalysis microscopic pending -hold off on antibiotic and repeat CBC in a.m.
[2018-12-24 18:52] LABS: Bacteria Urine None Seen
[2018-12-24 18:54] LABS: Appearance Urine UA CLOUDY; Bilirubin Urine UA 1+ (NEGATIVE); Color Urine UA YELLOW; Glucose Urine UA NEGATIVE (Negative); Ketones Urine UA NEGATIVE (NEGATIVE); Leukocyte Esterase Urine UA TRACE (NEGATIVE); Nitrite Urine UA NEGATIVE (Negative); Occult Blood Urine UA 3+ (Negative); Protein Urine UA 3+ (Negative); Specific Gravity Urine UA 1.025 (1.000-1.035); Urobilinogen Urine UA 0.2 E.U./dL (0.2)
[2018-12-24 19:09] LABS: RBC Urine 10-30/HPF (0-5/HPF); WBC Urine 5-10/HPF (0-5/HPF)
[2018-12-24 19:10] LABS: Amorphous Sediment Urine 2+
[2018-12-24 19:11] LABS: Hyaline Casts Urine 5-10/LPF
[2018-12-24 19:12] LABS: Culture Indicated Urine Specimen Cultured
[2018-12-24 20:19] LABS: Ictotest Urine Positive (Negative)
[2018-12-24] MEDS: SODIUM CHLORIDE 0.45% 1,000 ML 150 ML IV (20:30)
[2018-12-25] VITALS (13 sets, daily range): BP systolic 117–137; BP diastolic 60–78; PULSE 75–85; RESP 16–32; TEMP 36.3–38.8; O2SAT 93–97
[2018-12-25] MEDS: SODIUM CHLORIDE 0.45% 1,000 ML 150 ML IV (02:20)
[2018-12-25 06:32] LABS: Add Manual Diff / Slide Review NO; Basophils Absolute Auto 100 /uL (0-100); Basophils Percent Auto 1.1 % (0-2); Eosinophils Absolute Auto 100 /uL (0-450); Eosinophils Percent Auto 0.7 % (2-4); Hematocrit 40.1 % (36-46); Hemoglobin 13.4 g/dL (12.0-16.0); Lymphocytes Absolute Auto 1800 /uL (1100-4500); Lymphocytes Percent Auto 21.4 % (25-40); Mean Corpuscular HGB Conc 33.4 % (30-36); Mean Corpuscular Hemoglobin 29.2 PG (26-34); Mean Corpuscular Volume 87.7 fL (80-100); Monocytes Absolute Auto 500 /uL (0-900); Monocytes Percent Auto 5.7 % (3-14); Neutrophils Absolute Auto 5900 /uL (1500-7000); Neutrophils Percent Auto 71.1 % (50-75); Platelet Count 156 X10^3/uL (150-400); Red Blood Cell Count 4.57 X10^6/uL (4.0-5.2); Red Cell Distribution Width 15.1 % (11.6-14.8); White Blood Cell Count 8.3 X10^3/uL (4.5-11.0)
[2018-12-25 06:34] LABS: BUN Creatinine Ratio 45.6 (6-22); Calcium 7.4 mg/dL (8.4-10.2); Carbon Dioxide 17 mmol/L (22-32); Chloride 102 mmol/L (98-107); Estimated Glomerular Filt Rate 18.9 mL/min (>60); Glucose 117 mg/dL (80-110); HEMOLYSIS 15 (0-50); Potassium 4.8 mmol/L (3.4-5.1); Sodium 129 mmol/L (137-145)
[2018-12-25 06:43] LABS: Blood Urea Nitrogen 114 mg/dL (7-17)
[2018-12-25] MEDS: ACETAMINOPHEN 325 MG TABLET 650 MG PO (14:10)
[2018-12-25] MEDS: DEXTROSE 5%-0.9% NS 1,000 ML 125 ML IV (14:10)
[2018-12-25] MEDS: LACTULOSE 20 GM/30 ML SOLUTION PO ×2 (14:22→20:50)
[2018-12-25] MEDS: metroNIDAZOLE 500 MG/100 ML PIGGYBACK 100 MG IV ×2 (14:22→22:22)
[2018-12-25 14:33] LABS: Fractionated Inspired Oxygen 0.21; HCO3 ABG 15 mmol/L (22-26); Oxygen Saturation ABG 92 % (95-100); PCO2 ABG 25.3 mmHg (35-45); PO2 ABG 64 mmHg (80-100); TCO2 ABG 16 mmol/L (21-31); pH ABG 7.39 (7.35-7.45)
--- NOTE | 2018-12-25 15:13 | CM.DANOTE ---
Patient is a 73 year old female who was admitted on 12/24/18 for diarrhea/weakness. Pt has [facility] MCR for insurance and her PCP is Justyna Watson. EMR was reviewed. Per MD, pt has acute kidney due to volume depletion from diarrhea and has Hep C which likely cause of her cirrhosis. Pt not medically stable to d/c yet. Per RN, pt currently unable to ambulate and has swollen legs. SW met bedside with pt and explained role and updated white board and pt confirmed that she lives at home in [place] with her adult Dtr. Pt denies any DPOA and declined DPOA pwk at this time stating she was feeling too sick to think about it. Pt states she is Independent with ADL's at baseline and drives and denies any hx of HH or SNF. Pt feeling weak and tired and currently below baseline and has not been able to get out of bed yet today. PT eval and recommendations could be beneficial for d/c planning if pt continues to be below baseline. SW needs unclear at this time. Plan: SW to follow closely to determine if PT eval needed towards determining if pt will be safe for return home with adult Dtr. SW to follow for any further identified discharge planning needs. DAISHA Edward Discharge Planning/Care Management CM Discharge Assessment Start: 12/25/18 15:11 Freq: Status: Active Protocol: Document 12/25/18 15:11 BF (Rec: 12/25/18 15:13 BF [id number]) Discharge Planning Assessment Assigned Hosiery Knitter DAISHA Jaramillo DPOA/Assigned Designee Name none Advance Directives? No Advance Directives on File No History Provided By Patient Medical Record Has Patient been admitted in last 30 No days? Prior Living Arrangements House Household Members family Type of transporation used prior to Drives own vehicle admit Comment Lives at home in [place] with adult Dtr and is independent with ADL's at baseline and drives. Independent with ADL's Yes Is patient alert and oriented? Yes Caregiver for Another No Comment Likely home pending progress and possible need for PT eval. Barriers to Discharge No Discharge Plan Home Transportation Arrangement Likely Dtr can provide transport at d/c. Additional Comment Waiting for possible PT eval and recommendations Whiteboard Updated in Patient Room with Yes name and ext. # of Hosiery Knitter Review Status In Process Please Provide Date Initial DC 12/25/18 Assessment Was Performed Next Review Type Continued Stay Review
[2018-12-25 15:24] LABS: BUN Creatinine Ratio 45.8 (6-22); Calcium 7.6 mg/dL (8.4-10.2); Carbon Dioxide 18 mmol/L (22-32); Chloride 100 mmol/L (98-107); Glucose 113 mg/dL (80-110); Magnesium 2.5 mg/dL (1.6-2.3); Potassium 5.2 mmol/L (3.4-5.1); Sodium 129 mmol/L (137-145)
[2018-12-25 15:33] LABS: HEMOLYSIS 53 (0-50)
--- NOTE | 2018-12-25 15:33 | P.PN_ITS ---
Subjective Interval history: Patient has some mild abdominal discomfort. Main problem is that she is drowsy and sleepy. Exam Vital Signs (past 8 hours): - 12/25/18 07:44 12/25/18 11:00 12/25/18 14:01 Temperature 97.9 F 97.9 F 100.3 F H Pulse Rate 82 81 85 Respiratory Rate 21 20 32 H Blood Pressure 120/62 124/62 127/63 Pulse Oximetry 93 94 93 12/25/18 14:10 12/25/18 15:02 12/25/18 15:10 Temperature 101.8 F H 99.0 F 99 F Pulse Rate Respiratory Rate 28 H Blood Pressure Pulse Oximetry Oxygen Delivery Method Room Air Narrative Exam Narrative: GENERAL: Ill-appearing female but without complaints of pain nausea vomiting HEAD: Atraumatic. Normocephalic. EYES: Pupils equal, round and reactive. Extraocular motions intact. No scleral icterus. No injection or drainage. OROPHARYNX: Dry oral mucosa NECK: Trachea midline. No JVD or lymphadenopathy. CARDIOVASCULAR: Regular rate and rhythm without murmurs, gallops, or rubs. RESPIRATORY: Clear to auscultation bilaterally. GASTROINTESTINAL: Abdomen obese, nondistended, soft, minimal tenderness. No hepato-splenomegaly, or palpable masses. EXTREMITIES: No pitting edema. NEUROLOGICAL: Grossly physiologic PSYCHOLOGICAL: DROWSY AROUSABLE BUT QUICKLY RETURNS TO SLEEP SKIN: warm, dry, no rash Objective Labs Result Diagrams: 12/25/18 05:53 12/25/18 05:53 Labs: Laboratory Results - last 24 hr 12/24/18 12/24/18 12/24/18 14:36 14:36 14:36 WBC RBC Hgb Hct MCV MCH MCHC RDW Plt Count Neut % (Auto) Lymph % (Auto) [place] % (Auto) Eos % (Auto) Baso % (Auto) Neut # (Auto) Lymph # (Auto) [place] # (Auto) Eos # (Auto) Baso # (Auto) ABG pH ABG pCO2 ABG pO2 ABG HCO3 ABG Total CO2 ABG O2 Saturation ABG Base Excess FiO2 Sodium Potassium Chloride Carbon Dioxide BUN Creatinine Estimated GFR BUN/Creatinine Ratio Glucose Lactate 1.3 Calcium Ammonia Total Creatine Kinase 22 L CK-MB (CK-2) TNP CK-MB (CK-2) Rel Index TNP Troponin I < 0.012 Procalcitonin 0.54 H Urine Color Urine Appearance Urine pH Ur Specific [place] Urine Protein Urine Glucose (UA) Urine Ketones Urine Occult Blood Urine Nitrate Urine Bilirubin Urine Ictotest Urine Urobilinogen Ur Leukocyte Esterase Urine RBC Urine WBC Amorphous Sediment Urine Bacteria Hyaline Casts Ur Culture Indicated? 12/24/18 12/25/18 12/25/18 17:25 05:53 05:53 WBC 8.3 RBC 4.57 Hgb 13.4 Hct 40.1 MCV 87.7 MCH 29.2 MCHC 33.4 RDW 15.1 H Plt Count 156 Neut % (Auto) 71.1 Lymph % (Auto) 21.4 L [place] % (Auto) 5.7 Eos % (Auto) 0.7 L Baso % (Auto) 1.1 Neut # (Auto) 5900 Lymph # (Auto) 1800 [place] # (Auto) 500 Eos # (Auto) 100 Baso # (Auto) 100 ABG pH ABG pCO2 ABG pO2 ABG HCO3 ABG Total CO2 ABG O2 Saturation ABG Base Excess FiO2 Sodium 129 L Potassium 4.8 Chloride 102 Carbon Dioxide 17 L BUN 114 H* Creatinine 2.50 H Estimated GFR 18.9 L BUN/Creatinine Ratio 45.6 H Glucose 117 H Lactate Calcium 7.4 L Ammonia Total Creatine Kinase CK-MB (CK-2) CK-MB (CK-2) Rel Index Troponin I Procalcitonin Urine Color Yellow Urine Appearance Cloudy Urine pH 5.0 Ur Specific [place] 1.025 Urine Protein 3+ H Urine Glucose (UA) Negative Urine Ketones Negative Urine Occult Blood 3+ H Urine Nitrate Negative Urine Bilirubin 1+ H Urine Ictotest Positive H Urine Urobilinogen 0.2 Ur Leukocyte Esterase Trace H Urine RBC 10-30/hpf H Urine WBC 5-10/hpf H Amorphous Sediment 2+ Urine Bacteria None seen Hyaline Casts 5-10/lpf Ur Culture Indicated? Specimen cultured 12/25/18 12/25/18 09:50 14:10 WBC RBC Hgb Hct MCV MCH MCHC RDW Plt Count Neut % (Auto) Lymph % (Auto) [place] % (Auto) Eos % (Auto) Baso % (Auto) Neut # (Auto) Lymph # (Auto) [place] # (Auto) Eos # (Auto) Baso # (Auto) ABG pH 7.39 ABG pCO2 25.3 L ABG pO2 64 L ABG HCO3 15 L ABG Total CO2 16 L ABG O2 Saturation 92 L ABG Base Excess -10.0 L FiO2 0.21 Sodium Potassium Chloride Carbon Dioxide BUN Creatinine Estimated GFR BUN/Creatinine Ratio Glucose Lactate Calcium Ammonia 52.0 H Total Creatine Kinase CK-MB (CK-2) CK-MB (CK-2) Rel Index Troponin I Procalcitonin Urine Color Urine Appearance Urine pH Ur Specific [place] Urine Protein Urine Glucose (UA) Urine Ketones Urine Occult Blood Urine Nitrate Urine Bilirubin Urine Ictotest Urine Urobilinogen Ur Leukocyte Esterase Urine RBC Urine WBC Amorphous Sediment Urine Bacteria Hyaline Casts Ur Culture Indicated? Assessment & Plan Assessment Narrative: 1. ALTERED MENTAL STATUS -with findings of cirrhosis will wonder about hepatic encephalopathy. -check ammonia level -check ABGs -start lactulose if ammonia level elevated 2. Colitis per CT scan -blood in urine cultures no growth to date -stool cultures and C diff ordered -Cipro and Flagyl day 1 of both -serial CBCs and Chem panel 3. Cirrhosis -patient states that she has history of hepatitis C and most likely is related to this. There is no history of EtOH -lactulose for hepatic encephalopathy as stated above 4. Hepatitis-C Check Hcv RNA, HCV viral load 5. Portal hypertension with ascites and varices Start Inderal 10 mg p.o. t.i.d. over blood pressure less than 100 Quality VTE Deep Vein Thrombosis/Pulmonary Embolism Present on Admission: No
[2018-12-25 15:34] LABS: Blood Urea Nitrogen 119 mg/dL (7-17)
[2018-12-25] MEDS: CIPROFLOXACIN 400 MG/200 ML PIGGYBACK 200 MG IV (16:34)
[2018-12-25 18:10] LABS: Hep C Virus Ab w/Reflex Quant REACTIVE s/c (NEGATIVE)
[2018-12-25] MEDS: PROPRANOLOL 10 MG TABLET PO (20:50)
[2018-12-25] MEDS: HEPARIN 5,000 UNIT/ML VIAL 5000 UNIT SUBCUT (20:50)
--- NOTE | 2018-12-25 23:23 | PC.NURSE ---
Evening Shift Note Pt A&O, pt tachypneic other VSS, no complaints of pain. Pt tachypneic through out shift. physician assistant certified MANAGER STYLIST informed STAT renal panel ordered. Pt decreased output of 150cc this shift of tea colored urine. MANAGER STYLIST informed and awaiting renal panel results. Lab called for update on results, awaiting for lab to draw pt STAT. GI panel sent.
[2018-12-26] VITALS (8 sets, daily range): BP systolic 100–139; BP diastolic 61–80; PULSE 69–74; RESP 20–26; TEMP 36.4–36.8; O2SAT 92–96
--- NOTE | 2018-12-26 | DI.RAD.S_ITS ---
PROCEDURE: XR CHEST 1V INDICATIONS: wheezing r/o CHF TECHNIQUE: One view of the chest was acquired. COMPARISON: [facility], CR, XR CHEST 1V, 12/24/2018, 15:13. FINDINGS: Surgical changes and devices: None. Lungs and pleura: Lung volumes are improved. There is mild improved aeration of the lung bases. No new or acute consolidation. Scattered subsegmental atelectasis and/or scarring. No pleural effusions or pneumothorax. Mediastinum: Cardiac silhouette and mediastinal contours are stable. . Bones and chest wall: No suspicious bony lesions. Overlying soft tissues appear unremarkable. IMPRESSION: Improved lung volumes and aeration of the lung bases arguing for resolving atelectasis versus pulmonary edema. If there is persistent clinical diagnostic uncertainty, continued surveillance with short interval chest radiographs after treatment is recommended. Dictated by: Seymour Francois M.D. on 12/26/2018 at 15:59 Approved by: Seymour Francois M.D. on 12/26/2018 at 16:01
[2018-12-26 00:01] LABS: Albumin 2.8 g/dL (3.5-5.0); BUN Creatinine Ratio 43.5 (6-22); Calcium 7.5 mg/dL (8.4-10.2); Carbon Dioxide 18 mmol/L (22-32); Chloride 103 mmol/L (98-107); Glucose 145 mg/dL (80-110); HEMOLYSIS < 15 (0-50); Phosphorous 6.2 mg/dL (2.8-4.1); Potassium 4.5 mmol/L (3.4-5.1); Sodium 130 mmol/L (137-145)
[2018-12-26 00:03] LABS: Blood Urea Nitrogen 113 mg/dL (7-17)
[2018-12-26 00:33] LABS: Adenovirus F 40/41 Not Detected (Not Detect); Astrovirus Not Detected (Not Detect); Campylobacter Not Detected (Not Detect); Clostridium difficile toxin AB Not Detected (Not Detect); Cryptosporidium Not Detected (Not Detect); Cyclospora cayetanensis Not Detected (Not Detect); Entamoeba histolytica Not Detected (Not Detect); Enteroaggregative E.coli Not Detected (Not Detect); Enteropathogenic E.coli Not Detected (Not Detect); Enterotoxigenic E.coli It/st Not Detected (Not Detect); Giardia lamblia Not Detected (Not Detect); Norovirus GI/GII Not Detected (Not Detect); Plesiomonsa shigelloides Not Detected (Not Detect); Rotavirus A Not Detected (Not Detect); Salmonella Not Detected (Not Detect); Sapovirus Not Detected (Not Detect); Shiga-like toxin-prod E.coli Not Detected (Not Detect); Shigella/Enteroinvasive E.coli Not Detected (Not Detect); Vibrio Not Detected (Not Detect); Vibrio cholerae Not Detected (Not Detect); Yersinia enterocolitica Not Detected (Not Detect)
[2018-12-26] MEDS: DEXTROSE 5%-0.9% NS 1,000 ML 125 ML IV ×3 (01:18→21:50)
[2018-12-26] MEDS: metroNIDAZOLE 500 MG/100 ML PIGGYBACK 100 MG IV ×3 (05:27→21:50)
[2018-12-26] MEDS: PROPRANOLOL 10 MG TABLET PO ×2 (08:44→15:26)
[2018-12-26] MEDS: HEPARIN 5,000 UNIT/ML VIAL 5000 UNIT SUBCUT (08:44)
[2018-12-26] MEDS: LACTULOSE 20 GM/30 ML SOLUTION PO ×2 (08:45→15:26)
--- NOTE | 2018-12-26 08:48 | PM.PN.1 ---
Subjective Interval history: As per H& P 12/24/2018 Patient is a 73-year-old female who was brought to emergency department due to severe weakness and recent diarrhea. Patient reports onset of severe watery diarrhea 2 weeks prior to admission. She reports 10 or more watery nonbloody bowel movements a day. Also she complained 1-2 episodes of nausea vomiting and fever. Denies much abdominal pain other than mild cramping. She took 2 Imodium tablets 12/23/2018 and the diarrhea has stopped. However, she has gotten progressively weak to the point where unable to get out of bed on the day of admission 12/24/2018. she denies recent travel, cough, urinary burning or urgency. Noncontrast abdomen and pelvic CT showed mild bowel thickening of ascending and sigmoid colon. Cirrhosis and portal hypertension with mild ascites and a mild right pleural effusion. Head CT acute findings. Chest x-ray with increased vascularity suggestive of edema. On blood work, patient was noted to be in acute renal failure with BUN 117, creatinine 2.60. Potassium 4.7, normal. WBC 12.4 with slight left shift. SHE WAS ADMITTED FOR HER COLITIS Exam Vital Signs (past 8 hours): - 12/26/18 04:36 Temperature 97.9 F Pulse Rate 74 Respiratory Rate 22 Blood Pressure 123/67 Pulse Oximetry 95 Oxygen Delivery Method Room Air Narrative Exam Narrative: GENERAL: Ill-appearing female but without complaints of pain nausea vomiting HEAD: Atraumatic. Normocephalic. EYES: Pupils equal, round and reactive. Extraocular motions intact. No scleral icterus. No injection or drainage. OROPHARYNX: Dry oral mucosa NECK: Trachea midline. No JVD or lymphadenopathy. CARDIOVASCULAR: Regular rate and rhythm without murmurs, gallops, or rubs. RESPIRATORY: Clear to auscultation bilaterally. GASTROINTESTINAL: Abdomen obese, nondistended, soft, minimal tenderness. No hepato-splenomegaly, or palpable masses. EXTREMITIES: No pitting edema. NEUROLOGICAL: Grossly physiologic PSYCHOLOGICAL: Drowsy arousable but quickly returns to sleep during her answers. SKIN: warm, dry, no rash Objective Labs Result Diagrams: 12/26/18 09:05 12/26/18 09:05 Labs: Laboratory Results - last 24 hr 12/25/18 12/25/18 12/25/18 09:50 09:50 14:10 ABG pH 7.39 ABG pCO2 25.3 L ABG pO2 64 L ABG HCO3 15 L ABG Total CO2 16 L ABG O2 Saturation 92 L ABG Base Excess -10.0 L FiO2 0.21 Sodium Potassium Chloride Carbon Dioxide BUN Creatinine Estimated GFR BUN/Creatinine Ratio Glucose Calcium Phosphorus Magnesium Ammonia 52.0 H Albumin Specimen Hemolysis Stl C. cayetanensis PCR Stool Rotavirus (PCR) Stool Adenovirus (PCR) Stool Astrovirus (PCR) Stool Cryptosporidium PCR Stl E.coli Shiga Tox PCR St Sh/Enteroin Ecoli PCR Stool E coli O157 PCR Stl Enterotoxigenic E PCR Stool EPEC (PCR) Stl E. histolytica PCR Stool Giardia Lamblia PCR Stool Sapovirus (PCR) Stl P. shigelloides PCR St Y.enterocolitica PCR Stool Vibrio (PCR) Stl Vibrio cholerae PCR Stl Enteroaggr Ecoli PCR Stl Norovirus GI/GII PCR Campylobacter (PCR) C. difficile Tox (PCR) Hepatitis C Antibody Reactive H Salmonella (PCR) 12/25/18 12/25/18 12/25/18 14:10 14:15 22:40 ABG pH ABG pCO2 ABG pO2 ABG HCO3 ABG Total CO2 ABG O2 Saturation ABG Base Excess FiO2 Sodium Cancelled 129 L Potassium Cancelled 5.2 H Chloride Cancelled 100 Carbon Dioxide Cancelled 18 L BUN Cancelled 119 H* Creatinine Cancelled 2.60 H Estimated GFR Cancelled 18.0 L BUN/Creatinine Ratio Cancelled 45.8 H Glucose Cancelled 113 H Calcium Cancelled 7.6 L Phosphorus Cancelled Magnesium 2.5 H Ammonia Albumin Cancelled Specimen Hemolysis Cancelled Stl C. cayetanensis PCR Not detected Stool Rotavirus (PCR) Not detected Stool Adenovirus (PCR) Not detected Stool Astrovirus (PCR) Not detected Stool Cryptosporidium PCR Not detected Stl E.coli Shiga Tox PCR Not detected St Sh/Enteroin Ecoli PCR Not detected Stool E coli O157 PCR Not Reportable Stl Enterotoxigenic E PCR Not detected Stool EPEC (PCR) Not detected Stl E. histolytica PCR Not detected Stool Giardia Lamblia PCR Not detected Stool Sapovirus (PCR) Not detected Stl P. shigelloides PCR Not detected St Y.enterocolitica PCR Not detected Stool Vibrio (PCR) Not detected Stl Vibrio cholerae PCR Not detected Stl Enteroaggr Ecoli PCR Not detected Stl Norovirus GI/GII PCR Not detected Campylobacter (PCR) Not detected C. difficile Tox (PCR) Not detected Hepatitis C Antibody Salmonella (PCR) Not detected 12/25/18 12/26/18 23:40 04:16 ABG pH ABG pCO2 ABG pO2 ABG HCO3 ABG Total CO2 ABG O2 Saturation ABG Base Excess FiO2 Sodium 130 L Potassium 4.5 Chloride 103 Carbon Dioxide 18 L BUN 113 H* Creatinine 2.60 H Estimated GFR 18.0 L BUN/Creatinine Ratio 43.5 H Glucose 145 H Calcium 7.5 L Phosphorus 6.2 H Magnesium Ammonia 73.0 H Albumin 2.8 L Specimen Hemolysis Stl C. cayetanensis PCR Stool Rotavirus (PCR) Stool Adenovirus (PCR) Stool Astrovirus (PCR) Stool Cryptosporidium PCR Stl E.coli Shiga Tox PCR St Sh/Enteroin Ecoli PCR Stool E coli O157 PCR Stl Enterotoxigenic E PCR Stool EPEC (PCR) Stl E. histolytica PCR Stool Giardia Lamblia PCR Stool Sapovirus (PCR) Stl P. shigelloides PCR St Y.enterocolitica PCR Stool Vibrio (PCR) Stl Vibrio cholerae PCR Stl Enteroaggr Ecoli PCR Stl Norovirus GI/GII PCR Campylobacter (PCR) C. difficile Tox (PCR) Hepatitis C Antibody Salmonella (PCR) Quality VTE Deep Vein Thrombosis/Pulmonary Embolism Present on Admission: No
[2018-12-26 09:15] LABS: Add Manual Diff / Slide Review NO; Basophils Absolute Auto 0 /uL (0-100); Basophils Percent Auto 0.7 % (0-2); Eosinophils Absolute Auto 200 /uL (0-450); Eosinophils Percent Auto 2.2 % (2-4); Hematocrit 42.3 % (36-46); Hemoglobin 14.2 g/dL (12.0-16.0); Lymphocytes Absolute Auto 1200 /uL (1100-4500); Lymphocytes Percent Auto 16.1 % (25-40); Mean Corpuscular HGB Conc 33.6 % (30-36); Mean Corpuscular Hemoglobin 29.5 PG (26-34); Mean Corpuscular Volume 87.8 fL (80-100); Monocytes Absolute Auto 300 /uL (0-900); Monocytes Percent Auto 4.5 % (3-14); Neutrophils Absolute Auto 5500 /uL (1500-7000); Neutrophils Percent Auto 76.5 % (50-75); Platelet Count 129 X10^3/uL (150-400); Red Blood Cell Count 4.82 X10^6/uL (4.0-5.2); Red Cell Distribution Width 15.1 % (11.6-14.8); White Blood Cell Count 7.1 X10^3/uL (4.5-11.0)
[2018-12-26 09:35] LABS: Alanine Aminotransferase 28 IU/L (9-52); Albumin 2.8 g/dL (3.5-5.0); Albumin Globulin Ratio 0.7 (1.0-2.8); Alkaline Phosphatase 51 U/L (38-126); Aspartate Aminotransferase 41 IU/L (14-36); BUN Creatinine Ratio 45.8 (6-22); Bilirubin Total 0.8 mg/dL (0.2-1.3); Calcium 7.6 mg/dL (8.4-10.2); Carbon Dioxide 16 mmol/L (22-32); Chloride 105 mmol/L (98-107); Estimated Glomerular Filt Rate 19.8 mL/min (>60); Globulin 4.2 g/dL (1.7-4.1); Glucose 174 mg/dL (80-110); HEMOLYSIS < 15 (0-50); Potassium 4.2 mmol/L (3.4-5.1); Sodium 132 mmol/L (137-145)
[2018-12-26 09:37] LABS: Blood Urea Nitrogen 110 mg/dL (7-17)
[2018-12-26] MEDS: CIPROFLOXACIN 400 MG/200 ML PIGGYBACK 200 MG IV (14:39)
[2018-12-26 15:14] LABS: Alanine Aminotransferase 31 IU/L (9-52); Albumin 2.7 g/dL (3.5-5.0); Albumin Globulin Ratio 0.6 (1.0-2.8); Alkaline Phosphatase 48 U/L (38-126); Aspartate Aminotransferase 40 IU/L (14-36); Bilirubin Total 0.7 mg/dL (0.2-1.3); Calcium 7.6 mg/dL (8.4-10.2); Carbon Dioxide 17 mmol/L (22-32); Chloride 107 mmol/L (98-107); Estimated Glomerular Filt Rate 20.8 mL/min (>60); Globulin 4.2 g/dL (1.7-4.1); Glucose 145 mg/dL (80-110); HEMOLYSIS < 15 (0-50); Potassium 4.3 mmol/L (3.4-5.1); Sodium 133 mmol/L (137-145); Total Protein 6.9 g/dL (6.3-8.2)
[2018-12-26 15:15] LABS: Blood Urea Nitrogen 108 mg/dL (7-17)
[2018-12-26] MEDS: RIFAXIMIN 550 MG TABLET PO (15:26)
--- NOTE | 2018-12-26 15:54 | PT.IIE ---
Current Diagnoses Dehydration (12/24/18) Diarrhea, unspecified (12/24/18) Surgical History (Last Reviewed 12/24/18 @ 19:02 by JOELLE Taylor) History of tonsillectomy Physical Therapy Inpatient Evaluation/Re-Eval M1 PT/OT-IP Prior Functional Status Start: 12/26/18 15:54 Freq: NEEDED Status: Active Protocol: Document 12/26/18 15:54 [facility] (Rec: 12/26/18 16:02 [facility] [id number]) Medical Review Prior Functional Status Medical History Reviewed Yes Mobility and Gait indep. community gait without device Activities of Daily Living and IADL's indep. I/ADLs including driving Social History Household Members family Living Arrangements House Number of Floors (Floors) One Floor Number of Stairs To Enter/Railing? per pt, no steps to enter/exit Additional Social History Comment Pt admitted with severe weakness, diarrhea, AMS. M2 PT-IP Current Condition Start: 12/26/18 15:54 Freq: NEEDED Status: Active Protocol: Document 12/26/18 15:54 [facility] (Rec: 12/26/18 16:02 [facility] [id number]) Physical Therapy Current Condition Current Condition Evaluation Date 12/26/18 Treatment Diagnosis diarrhea, weakness M3 PT-IP Subjective Start: 12/26/18 15:54 Freq: NEEDED Status: Active Protocol: Document 12/26/18 15:54 [facility] (Rec: 12/26/18 16:02 [facility] [id number]) Subjective Physical Therapy Visit Type Type Initial Evaluation Visit Start Time 15:30 Visit Stop Time 15:54 Total Visit Minutes 24 Number of OENOLOGIST Visits 0 Physical Therapy Visit Comments Patient Comments pt agreeable to attempt to stand Patient Goals unable to state M4 PT-IP Mobility and Gait Start: 12/26/18 15:54 Freq: NEEDED Status: Active Protocol: Document 12/26/18 15:54 [facility] (Rec: 12/26/18 16:02 [facility] [id number]) PT-Bed Mobility Assessment Rolling Type of Rolling Log Rolling Bilateral Level of Assist Maximal Assistance 1 Person Assistance Supine to Sit Supine to Sit Maximum Assistance 1 Person Assistance Sit to Supine Sit to Supine Maximum Assistance 2 Person Assistance PT-Transfer Assessment Sit to and From Stand Sit to and from Stand Maximum Assistance 1 Person Assistance Use of Upper Extremities Equipment Transfer Assistive Device Gait Belt Front Wheeled Walker Comments Mobility Comments Pt took 2 steps laterally to position more appropriately in bed, but refused to ambulate, sat impulsively. Gait Assessment Comments Gait Comments unable PT-Balance Assessment Sitting Balance and Reactions Static Sitting Balance Ability Fair Dynamic Sitting Balance Ability Fair Standing Balance and Reactions Static Standing Balance Ability Poor Dynamic Standing Balance Ability Poor Device Used FWW M5 PT-IP Objective Assessments Start: 12/26/18 15:54 Freq: NEEDED Status: Active Protocol: Document 12/26/18 15:54 [facility] (Rec: 12/26/18 16:02 [facility] [id number]) Orientation Orientation/Cognition Level of Alertness Lethargic Comments responds to first name, uanble to answer questions besides very simple ones, with yes/no responses Strength Lower Extremity Strength Assessment Bilaterally Impaired Comments Strength Comments unable to formally test Sensation Assessment Comments Sensation Comments unable to test M6 PT-IP Treatment Start: 12/26/18 15:54 Freq: NEEDED Status: Active Protocol: Document 12/26/18 15:54 [facility] (Rec: 12/26/18 16:02 [facility] [id number]) Physical Therapy Treatment Education Education Provided Safety M7 PT-IP Assessment and Plan Start: 12/26/18 15:54 Freq: NEEDED Status: Active Protocol: Document 12/26/18 15:54 [facility] (Rec: 12/26/18 16:02 [facility] [id number]) PT Summary Assessment and Plan Potential Rehabilitation Potential Good Status of Condition at Evaluation Unstable Summary Impairments Strength Balance Cognition Bed Mobility Transfers Gait Activity Tolerance Assessment Summary Pt lethargic on evaluation, able to answer some simple questions with yes/no response . She became fatigued rapidly with sitting on EOB and standing, able to take 2 lateral steps to the R with each foot but refused to ambulate and sat rapidly and impulsively due to fatigue. RR increased, but [place] and O2 saturation WNL during session. Pt is well below her prior level of function, and is not safe to return home at this point. Barring a significant improvement medically, pt likely would benefit from SNF rehabilitation upon d/c to improve functional independence as the burden of care is too high for the pt's family to manage. She is not able to tolerate more than one PT session per day at this time. Goals Bed Mobility Goal Contact Guard Assistance Transfer Goal Contact Guard Assistance Gait Goal Contact Guard Assistance Gait Distance 50 Days to Meet Goals 8 Frequency of Treatment Frequency Of Treatment Once a Day Treatment Plan Physical Therapy Treatment Plan Bed Mobility Training Transfer Training Gait Training Therapeutic Exercise Balance Retraining Discharge Planning Neuromuscular Re-ed Other Recommendations and Next Treatment trial standing and gait if Focus able. Recommendations To Nursing Amount of Assist Needed Mechanical Lift Discharge Recommendations PT Discharge Recommendations SNF Rehab
[2018-12-26 16:25] LABS: Free T4, Direct Thyroxine 1.11 ng/dL (0.78-2.19)
[2018-12-26 17:13] LABS: Magnesium 2.5 mg/dL (1.6-2.3)
[2018-12-27] VITALS (9 sets, daily range): BP systolic 61–148; BP diastolic 46–70; PULSE 63–72; RESP 16–22; TEMP 36.2–37.2; O2SAT 91–94
--- NOTE | 2018-12-27 01:32 | PC.NURSE ---
Patient resting quietly, easily aroused. Slightly agitated about shift assessment. Denied pain , IV fluids infusing per orders . Bed alarm on and call light within reach.
[2018-12-27] MEDS: metroNIDAZOLE 500 MG/100 ML PIGGYBACK 100 MG IV (06:05)
[2018-12-27] MEDS: LACTULOSE 20 GM/30 ML SOLUTION PO ×2 (09:03→21:24)
--- NOTE | 2018-12-27 09:35 | PC.NURSE ---
Addendum entered by Celine Liao R.N. 12/27/18 15:36: incont of bm x2 this shift. reviewed all meds and poc w/ md this afternoon. md will review labs this afternoon and make decision about ivf. remains sl'd at this time. sam shift rn to start albumin infusion per orders. sat 92% on ra this afternoon. Original Note: MD NOTIFIED PATIENT HAS ERYTHEMIC RASH THROUGHOUT WITH ITCHING AND SOME AREAS APPEAR PETICHIAE. ALSO NOTIFIED LUNG SOUNDS DIMINISHED THROUGHOUT ON LEFT. ORDER TO HOLD AM MEDS UNTIL MD ASSESSES RASH AND TO SL IV UNTIL MD SEE'S PATIENT. THIS WAS DONE. PATIENT DID TAKE HER LACTULOSE. NOT EATING OR DRINKING MUCH. REMAINS LETHARGIC, BUT AROUSABLE AND ASSISTS TO TURN TO CHANGE SHEETS. NO BM THIS AM SO FAR.
[2018-12-27] MEDS: PROPRANOLOL 10 MG TABLET PO ×3 (11:25→21:24)
--- NOTE | 2018-12-27 12:01 | PT.IPTN ---
Current Diagnoses Dehydration (12/24/18) Diarrhea, unspecified (12/24/18) Physical Therapy Treatment Note M2 PT-IP Current Condition Start: 12/26/18 15:54 Freq: NEEDED Status: Active Protocol: Document 12/26/18 15:54 [facility] (Rec: 12/26/18 16:02 [facility] [id number]) Physical Therapy Current Condition Current Condition Evaluation Date 12/26/18 Treatment Diagnosis diarrhea, weakness M3 PT-IP Subjective Start: 12/26/18 15:54 Freq: NEEDED Status: Active Protocol: Document 12/27/18 10:30 [facility] (Rec: 12/27/18 12:01 [id number]) Subjective Physical Therapy Visit Type Type Treatment Note Visit Start Time 10:30 Visit Stop Time 10:55 Total Visit Minutes 25 Notes RN reports pt cont to be sleepy and lethargic. Pt was found to have skin rashes at buttock, knees and ankles. Number of STAFF FORESTER Visits 0 Physical Therapy Visit Comments Patient Comments I got dizzy easily when i sit up. M4 PT-IP Mobility and Gait Start: 12/26/18 15:54 Freq: NEEDED Status: Active Protocol: Document 12/27/18 10:30 [facility] (Rec: 12/27/18 12:01 [id number]) PT-Bed Mobility Assessment Rolling Type of Rolling Roll to Left Level of Assist Moderate Assistance 2 Person Assistance Supine to Sit Supine to Sit Moderate Assistance 2 Person Assistance Head of Bed Elevated Bedrails Sit to Supine Sit to Supine Moderate Assistance 2 Person Assistance Head of Bed Elevated Bedrails Scooting Scooting to Edge of Bed Contact Guard Assistance Scooting Up and Down in Bed Maximum Assistance PT-Transfer Assessment Comments Mobility Comments Pt agreeable to sit up EOB. Pt needed mod A x 2 for overall bed mobility but she was able to lateral scoot for 4 times with CGA. However, pt's BP went up to 147/115 in sitting, did not attempt sit to stand. RN notified and position pt back to supine. Pt's bp went back to 121/66 2 minutes after . call light within reach. Gait Assessment Comments Gait Comments unable M5 PT-IP Objective Assessments Start: 12/26/18 15:54 Freq: NEEDED Status: Active Protocol: Document 12/26/18 15:54 [facility] (Rec: 12/26/18 16:02 [facility] [id number]) Orientation Orientation/Cognition Level of Alertness Lethargic Comments responds to first name, uanble to answer questions besides very simple ones, with yes/no responses Strength Lower Extremity Strength Assessment Bilaterally Impaired Comments Strength Comments unable to formally test Sensation Assessment Comments Sensation Comments unable to test M6 PT-IP Treatment Start: 12/26/18 15:54 Freq: NEEDED Status: Active Protocol: Document 12/26/18 15:54 [facility] (Rec: 12/26/18 16:02 [facility] [id number]) Physical Therapy Treatment Education Education Provided Safety M7 PT-IP Assessment and Plan Start: 12/26/18 15:54 Freq: NEEDED Status: Active Protocol: Document 12/27/18 10:30 (Rec: 12/27/18 12:01 [id number]) PT Summary Assessment and Plan Summary Assessment Summary Pt seemed to be more attentive and oriented today upon assessment. Able to follow commands and answer questions with slow response. She did present improved bed mobility today but Pt's BP was significant elevated after sitting EOB and required to be positioned back to supine. At this point, SNF will still be the ideal option to improve her overall functional mobility. Goals Bed Mobility Goal Contact Guard Assistance Transfer Goal Contact Guard Assistance Gait Goal Contact Guard Assistance Gait Distance 50 Days to Meet Goals 8 Frequency of Treatment Frequency Of Treatment Once a Day Treatment Plan Physical Therapy Treatment Plan Bed Mobility Training Transfer Training Gait Training Therapeutic Exercise Balance Retraining Discharge Planning Neuromuscular Re-ed Other Recommendations and Next Treatment trial standing and gait if Focus able. Recommendations To Nursing Amount of Assist Needed Mechanical Lift Discharge Recommendations PT Discharge Recommendations SNF Rehab
--- NOTE | 2018-12-27 12:34 | OT.IP.EVAL ---
Current Diagnoses Dehydration (12/24/18) Diarrhea, unspecified (12/24/18) Surgical History (Last Reviewed 12/24/18 @ 19:02 by JOELLE Taylor) History of tonsillectomy Occupational Therapy Inpatient Evaluation/Re-Eval M1 PT/OT-IP Prior Functional Status Start: 12/26/18 15:54 Freq: NEEDED Status: Active Protocol: Document 12/26/18 15:54 [facility] (Rec: 12/26/18 16:02 [facility] [id number]) Medical Review Prior Functional Status Medical History Reviewed Yes Mobility and Gait indep. community gait without device Activities of Daily Living and IADL's indep. I/ADLs including driving Social History Household Members family Living Arrangements House Number of Floors (Floors) One Floor Number of Stairs To Enter/Railing? per pt, no steps to enter/exit Additional Social History Comment Pt admitted with severe weakness, diarrhea, AMS. M1 PT/OT-IP Prior Functional Status Start: 12/27/18 12:09 Freq: NEEDED Status: Active Protocol: Document 12/27/18 12:10 [facility] (Rec: 12/27/18 12:34 [facility] [id number]) Medical Review Prior Functional Status Medical History Reviewed Yes Mobility and Gait indep. community gait without device Activities of Daily Living and IADL's indep. I/ADLs including driving Social History Household Members family Living Arrangements House Number of Floors (Floors) One Floor Number of Stairs To Enter/Railing? per pt, no steps to enter/exit Home Environment Standard Height Toilet Walk in Shower Home Equipment Hand Held Shower Employment Status Retired Additional Social History Comment Pt admitted with severe weakness, diarrhea, AMS. M2 OT-IP Current Condition Start: 12/27/18 12:09 Freq: Status: Active Protocol: Document 12/27/18 12:10 [facility] (Rec: 12/27/18 12:34 [facility] [id number]) Occupational Therapy Current Condition Current Condition Evaluation Date 12/27/18 Treatment Diagnosis Weakness, diarrhea Diagnosis Onset Date 12/24/18 M3 OT- IP Subjective and Pain Start: 12/27/18 12:09 Freq: Status: Active Protocol: Document 12/27/18 12:10 [facility] (Rec: 12/27/18 12:34 [facility] [id number]) OT- Subjective Occupational Therapy Visit Type Type Initial Evaluation Visit Start Time 10:30 Visit Stop Time 11:00 Total Visit Minutes 30 Occupational Therapy Visit Comments Patient Comments Pt per nursing sleepy, lethargic, and has rashes on her buttock, knees, and ankles . OT Pain Assessment Pain When Pain Assessed At Rest Pain Present Pain Present Denied Pain M4 OT- IP ADL's Start: 12/27/18 12:09 Freq: Status: Active Protocol: Document 12/27/18 12:10 [facility] (Rec: 12/27/18 12:34 [facility] [id number]) OT ADL-Oral Care General Eval Oral Care Ability Minimal Assistance Areas of Assistance Retrieving/Set-Up of Items Comments Oral Care Comments Pt able to wash hands and face after set-up of wash cloth and use of mouth swabs to clean her mouth while sitting up in bed. Pt needing assist to pull back hair into ponytail. Pt states daughter to come and assist later to comb out tangled hair. OT ADL-Toileting General Evaluation Toileting Ability Total Assistance Areas Needing Assistance Manage Clothing Perform Perineal Hygiene Comments OT Toileting Comments Pt dependent to assist to clean/do hygiene in bed as just having diarrhea. M5 OT- IP IADL's Start: 12/27/18 12:09 Freq: Status: Active Protocol: Document 12/27/18 12:10 [facility] (Rec: 12/27/18 12:34 [facility] [id number]) OT-Instrumental Activities of Daily Living Home Safety Awareness Home Safety Comments Pt states completely independent with all IADl need , medication, shopping, and money management needs. M6 OT- IP Functional Cognition Start: 12/27/18 12:09 Freq: Status: Active Protocol: Document 12/27/18 12:10 [facility] (Rec: 12/27/18 12:34 [facility] [id number]) Cognitive Factors Limiting Selfcare Function Cognitive Ability Level of Alertness Alert Drowsy Patient Orientation Name Place Situation Attention Span Ability Capable of Focused Attention Capable of Sustained Attention Ability to Follow Commands Able to Follow One Step Commands Memory Description No Deficits Noted Cognitive Comments Cognitive Assessment Comments Pt a bit sleepy but able to do follow one step commands and able to recall that functionally that she did better today versus yesterday. OT- Vision and Hearing OT- Hearing Assessment OT- Hearing Assessment WFL OT- Vision Assessment Visual Acuity WFL M7 OT- IP Mobility and Balance Start: 12/27/18 12:09 Freq: Status: Active Protocol: Document 12/27/18 12:10 [facility] (Rec: 12/27/18 12:34 [facility] [id number]) OT- Bed Mobility Assessment Rolling Type of Rolling Roll to Left Level of Assistance Moderate Assistance 2 Person Assistance Head of Bed Elevated Bedrails Supine to Sit Supine to Sit Assist Moderate Assistance 2 Person Assistance Sit to Supine Sit to Supine Assist Moderate Assistance 2 Person Assistance Scooting Scooting to Edge of Bed Contact Guard Assistance Scooting Up and Down in Bed Maximum Assistance OT-Transfer Assessment Comments Mobility Comments Pt's BP after sitting up 147/ 115 and pt feeling dizzy and after lying pt back down to supine 121/66. Pt able to scoot up on the edge bed CGA. OT- Balance Assessment Sitting Balance and Reactions Static Sitting Balance Ability Good M8 OT- IP Objective Assessments Start: 12/27/18 12:09 Freq: Status: Active Protocol: Document 12/27/18 12:10 [facility] (Rec: 12/27/18 12:34 [facility] [id number]) OT Gross Range of Motion Upper Extremity Range of Motion Assessment Within Functional Limits OT Strength Comments Strength Comments BUE 4/5 M9 OT- IP Assessment and Plan Start: 12/27/18 12:09 Freq: Status: Active Protocol: Document 12/27/18 12:10 [facility] (Rec: 12/27/18 12:34 [facility] [id number]) OT Summary Assessment and Plan Potential Rehabilitation Potential Good Analytic Complexity at Evaluation Low Summary OT Impairments Strength Balance Functional Cognition Functional Mobility Dressing Toileting Bathing Toilet Transfers Shower Transfers Progress Towards Goals Slow Progress due to Medical Issues Slow Progress due to Activity Tolerance Assessment Summary Pt low complexity and main barrier is decreased activity tolerance, strength, and now only able to tolerate sitting up to end of bed as BP increased. Pt states son flying in from [place] and daughter able to help at home and insistent on going home. Therefore pending caregiver training, pt may need short skilled rehab versus home with assist from family. Goals Self-Feeding Goal Standby Assistance Grooming Goal Standby Assistance Dressing Goal Moderate Assistance Toileting Goal Moderate Assistance Bathing Goal Moderate Assistance Toilet Transfer Goal Minimal Assistance Shower Transfer Goal Moderate Assistance Patient/Caregiver Education Goal Caregiver Independent Assisting Patient Days to Meet Goals 5 Frequency of Treatment Frequency Of Treatment Once a Day Treatment Plan OT Treatment Plan ADL Training Functional Cognition Training Functional Mobility Patient/Family Education Discharge Planning Other Treatment Recommendations and Next Transfer to [facility] with MODA x1 Treatment Focus with FWW. Discharge Recommendations OT Discharge Recommendations Home with Assistance SNF Rehab Other Discharge Recommendations Pending medical stability and ability of family to assist pt , pt may need short skilled rehab versus home with assist. Home Equipment Needs Shower chair
--- NOTE | 2018-12-27 13:22 | CM.DPC ---
Addendum entered by DAISHA Edward 12/27/18 15:07: ADD: 1500 still no family bedside and no return calls from Dtr but pt more alert and oriented although still looks quite fatigued. Pt's ex- Michel De Souza ([phone]) stopped by to visit and pt was agreeable with SW getting his number in case anything further needed and family not reachable. SW discussed with pt the recommendation of SNF and being below baseline and pt states she just wants to go home with family support. Pt states that she will have two sons and her dtr to assist at d/c and SW encouraged then that family be bedside to do CG training with PT/OT if home is her preference. SW provided the SNF and HH Choice List and discussed HH services and frequency and pt was hesitant to even be agreeable with HH and states that she would like to wait until tomorrow to see how she feels and what might be needed if anything. Plan: SW to follow closely in the morning to determine if pt's family can be present for CG training with PT/OT to determine if pt will be safe for d/c home and if they are agreeable with assist for the pt. SNF vs home with HH. DAISHA Edward Original Note: DCP Cont: Per MD, pt somewhat medically complex and now has a rash and does not seem to be improving, quite lethargic. Per PT/OT, recommending likely SNF unless pt makes significant improvement prior to d/c. Pt still too weak and tired to ambulate and has been groggy and not able to participate in a lengthy conversation. SW met bedside with pt and explained role again and pt seemed drowsy and SW attempted initial SNF recommendation but pt does not seem able to participate in discussion at this time. Pt states her Dtr should be bedside sometime today. SW attempted to call Dtr Felisa, whom pt lives with, at the only listed home phone number with no answer. SW did confirm that [facility] is contracted with pt's insurance [facility] Medicare in case the pt is agreeable to SNF and would like to stay in [place] but SW did not send referral as discussion still needs to happen with pt and Dtr. Per RN, pt's son to be flying in from [place] possibly today but snow may delay his arrival. Plan: SW to follow closely for Dtr and/or son to be bedside to discuss with pt and family d/c planning options of SNF vs home with HH? DAISHA Edward
--- NOTE | 2018-12-27 13:42 | P.PN_ITS ---
Subjective Interval history: Patient seen and examined chart reviewed. She is awake and alert. Patient is having recurrent diarrhea. She has been agreeable to taking her oral lactulose. Patient has developed an abrupt rash over the chest abdomen and back. It is somewhat itchy. Rash came on about 2 days ago. The patient is wheezing on exam. She appears somewhat short of breath. She has no other specific complaints. Exam Vital Signs (past 8 hours): - 12/27/18 05:49 12/27/18 07:00 12/27/18 08:17 Temperature 98.9 F 97.9 F Pulse Rate 72 72 Respiratory Rate 16 22 Blood Pressure 125/58 L 148/70 H Pulse Oximetry 91 93 94 12/27/18 11:48 Temperature 97.2 F L Pulse Rate 69 Respiratory Rate 20 Blood Pressure 119/61 Pulse Oximetry 92 Oxygen Delivery Method Room Air Oxygen Flow Rate 0 Narrative Exam Narrative: Ill appearing female in No obvious distress Lungs: Decreased breath sounds with end-expiratory wheezing Cardiac exam: Regular rate and rhythm normal S1 and S2 Abdomen: Soft nontender nondistended without hepatosplenomegaly Extremities: No edema Skin: Petechial erythematous macular eruption along the chest abdomen and back. Objective Labs Result Diagrams: 12/26/18 09:05 12/26/18 14:55 Labs: Laboratory Results - last 24 hr 12/26/18 12/26/18 12/26/18 14:55 14:55 14:55 Sodium 133 L Potassium 4.3 Chloride 107 Carbon Dioxide 17 L BUN 108 H* Creatinine 2.30 H Estimated GFR 20.8 L BUN/Creatinine Ratio 47.0 H Glucose 145 H Calcium 7.6 L Magnesium Total Bilirubin 0.7 AST 40 H ALT 31 Alkaline Phosphatase 48 Ammonia 81.0 H Total Protein 6.9 Albumin 2.7 L Globulin 4.2 H Albumin/Globulin Ratio 0.6 L TSH 13.20 H Free T4 1.11 12/26/18 14:55 Sodium Potassium Chloride Carbon Dioxide BUN Creatinine Estimated GFR BUN/Creatinine Ratio Glucose Calcium Magnesium 2.5 H Total Bilirubin AST ALT Alkaline Phosphatase Ammonia Total Protein Albumin Globulin Albumin/Globulin Ratio TSH Free T4 Assessment & Plan Assessment Narrative: Acute metabolic encephalopathy, present on admission, secondary to hepatic encephalopathy, secondary to cirrhosis, secondary to hepatitis-C Acute drug eruption, likely related to medication. Suspect secondary to antibi otics. Acute mild colitis, present on admission, the patient is having diarrhea at this time most likely related to the lactulose per day given the possible drug eruption will discontinue antibiotics at this time. Acute renal failure, present on admission, improving. Suspect prerenal azotemia related to diarrhea and dehydration. Will try low-dose albumin Hypothyroidism, chronic, present on admission. Hyponatremia, acute, present on admission Hepatitis-C, chronic, present on admission Cirrhosis, secondary to hepatitis-C, present on admission Plan Narrative: Will continue oral lactulose. Will recheck labs today. In addition will give her IV albumin Will discontinue IV antibiotics. Will continue the rifaximin PT OT consultation will follow labs closely to follow-up on renal failure. Quality VTE Deep Vein Thrombosis/Pulmonary Embolism Present on Admission: No
[2018-12-27] MEDS: HEPARIN 5,000 UNIT/ML VIAL 5000 UNIT SUBCUT ×2 (14:30→21:24)
[2018-12-27] MEDS: RIFAXIMIN 550 MG TABLET PO ×2 (14:30→21:24)
[2018-12-27 15:06] LABS: Basophils Absolute Auto 200 /uL (0-100); Basophils Percent Auto 2.3 % (0-2); Eosinophils Absolute Auto 200 /uL (0-450); Eosinophils Percent Auto 3.2 % (2-4); Hematocrit 41.9 % (36-46); Hemoglobin 14.2 g/dL (12.0-16.0); Lymphocytes Absolute Auto 1700 /uL (1100-4500); Mean Corpuscular HGB Conc 33.9 % (30-36); Mean Corpuscular Hemoglobin 29.5 PG (26-34); Monocytes Absolute Auto 300 /uL (0-900); Monocytes Percent Auto 4.6 % (3-14); Neutrophils Absolute Auto 5100 /uL (1500-7000); Neutrophils Percent Auto 67.9 % (50-75); Red Blood Cell Count 4.81 X10^6/uL (4.0-5.2); Red Cell Distribution Width 15.2 % (11.6-14.8); White Blood Cell Count 7.5 X10^3/uL (4.5-11.0)
[2018-12-27 15:13] LABS: Add Manual Diff / Slide Review SLIDE REVIEW
[2018-12-27] MEDS: ALBUMIN HUMAN 25 GM/100 ML VIAL IV (15:48)
[2018-12-27 15:52] LABS: Platelet Count 171 X10^3/uL (150-400)
[2018-12-27 15:53] LABS: Platelet Estimate Adequate on smear
[2018-12-27 16:04] LABS: Alanine Aminotransferase 34 IU/L (9-52); Albumin 2.5 g/dL (3.5-5.0); Albumin Globulin Ratio 0.6 (1.0-2.8); Alkaline Phosphatase 55 U/L (38-126); Aspartate Aminotransferase 42 IU/L (14-36); BUN Creatinine Ratio 45.9 (6-22); Bilirubin Total 0.8 mg/dL (0.2-1.3); Blood Urea Nitrogen 101 mg/dL (7-17); Calcium 7.8 mg/dL (8.4-10.2); Carbon Dioxide 18 mmol/L (22-32); Chloride 110 mmol/L (98-107); Estimated Glomerular Filt Rate 21.9 mL/min (>60); Glucose 126 mg/dL (80-110); HEMOLYSIS < 15 (0-50); Potassium 4.4 mmol/L (3.4-5.1); Sodium 137 mmol/L (137-145); Total Protein 6.5 g/dL (6.3-8.2)
[2018-12-28] VITALS (9 sets, daily range): BP systolic 103–142; BP diastolic 56–65; PULSE 61–70; RESP 16–24; TEMP 36.1–37.2; O2SAT 91–96
[2018-12-28] MEDS: LEVOTHYROXINE 100 MCG TABLET 200 MCG PO (05:32)
[2018-12-28] MEDS: LACTULOSE 20 GM/30 ML SOLUTION PO (08:21)
[2018-12-28] MEDS: RIFAXIMIN 550 MG TABLET PO ×2 (08:21→20:04)
[2018-12-28] MEDS: HEPARIN 5,000 UNIT/ML VIAL 5000 UNIT SUBCUT ×2 (08:21→20:04)
[2018-12-28] MEDS: PROPRANOLOL 10 MG TABLET PO ×3 (08:21→20:04)
--- NOTE | 2018-12-28 13:05 | PT.IPTN ---
Current Diagnoses Dehydration (12/24/18) Diarrhea, unspecified (12/24/18) Physical Therapy Treatment Note M2 PT-IP Current Condition Start: 12/26/18 15:54 Freq: NEEDED Status: Active Protocol: Document 12/26/18 15:54 [facility] (Rec: 12/26/18 16:02 [facility] [id number]) Physical Therapy Current Condition Current Condition Evaluation Date 12/26/18 Treatment Diagnosis diarrhea, weakness M3 PT-IP Subjective Start: 12/26/18 15:54 Freq: NEEDED Status: Active Protocol: Document 12/28/18 13:05 AB (Rec: 12/28/18 13:48 AB [id number]) Subjective Physical Therapy Visit Type Type Treatment Note Visit Start Time 13:05 Visit Stop Time 13:35 Total Visit Minutes 30 Number of CONTINUOUS W[employer]PER[employer]OR Visits 0 Physical Therapy Visit Comments Patient Comments pt agreeable to get out of be M4 PT-IP Mobility and Gait Start: 12/26/18 15:54 Freq: NEEDED Status: Active Protocol: Document 12/28/18 13:05 AB (Rec: 12/28/18 13:48 AB [id number]) PT-Bed Mobility Assessment Supine to Sit Supine to Sit Standby Assistance Bedrails PT-Transfer Assessment Sit to and From Stand Sit to and from Stand Moderate Assistance 1 Person Assistance Use of Upper Extremities Equipment Transfer Assistive Device Gait Belt Front Wheeled Walker Orthotic/Prosthetic Devices or Brace: No Transfers Transfer Destination Chair Transfer Technique Stand Step Pivot Transfer Ability Level of Assist Moderate Assistance 1 Person Assistance Use of Upper Extremities Comments Mobility Comments pt required increase rest breaks in between tasks. pt instructed with sit to stand technique but pt prefers to pull on FWW despite education provided. pt with confusion and requires cues with all tasks. pt with c/o dizziness upon sitting, BP: 90/55. after seated rest, pt stated that dizziness got better and agreed to sit on chair. pt completed stand step transfer using FWW mod A and cues. positioned pt on chair. BP after transfers: 135/55. call light and table placed within reach. informed nurese regarding level of assistance and BP. M5 PT-IP Objective Assessments Start: 12/26/18 15:54 Freq: NEEDED Status: Active Protocol: Document 12/26/18 15:54 [facility] (Rec: 12/26/18 16:02 RCC [id number]) Orientation Orientation/Cognition Level of Alertness Lethargic Comments responds to first name, uanble to answer questions besides very simple ones, with yes/no responses Strength Lower Extremity Strength Assessment Bilaterally Impaired Comments Strength Comments unable to formally test Sensation Assessment Comments Sensation Comments unable to test M6 PT-IP Treatment Start: 12/26/18 15:54 Freq: NEEDED Status: Active Protocol: Document 12/28/18 13:05 AB (Rec: 12/28/18 13:48 AB [id number]) Physical Therapy Treatment Education Education Provided Safety M7 PT-IP Assessment and Plan Start: 12/26/18 15:54 Freq: NEEDED Status: Active Protocol: Document 12/28/18 13:05 AB (Rec: 12/28/18 13:48 AB [id number]) PT Summary Assessment and Plan Potential Rehabilitation Potential Fair Summary Impairments Strength Balance Cognition Bed Mobility Transfers Gait Activity Tolerance Progress Towards Goals Slow Progress due to Activity Tolerance Assessment Summary pt requiring mod A with mobility and unable to tolerate much activity. pt will require SNF rehab to improve strength and function. Goals Bed Mobility Goal Contact Guard Assistance Transfer Goal Contact Guard Assistance Gait Goal Contact Guard Assistance Gait Distance 50 Days to Meet Goals 8 Frequency of Treatment Frequency Of Treatment Once a Day Treatment Plan Physical Therapy Treatment Plan Bed Mobility Training Transfer Training Gait Training Therapeutic Exercise Balance Retraining Discharge Planning Neuromuscular Re-ed Recommendations To Nursing Amount of Assist Needed 2 Person Assist Discharge Recommendations PT Discharge Recommendations SNF Rehab
--- NOTE | 2018-12-28 13:48 | OT.IP.TRT ---
Current Diagnoses Dehydration (12/24/18) Diarrhea, unspecified (12/24/18) Occupational Therapy Treatment Note M2 OT-IP Current Condition Start: 12/27/18 12:09 Freq: Status: Active Protocol: Document 12/27/18 12:10 [facility] (Rec: 12/27/18 12:34 [facility] [id number]) Occupational Therapy Current Condition Current Condition Evaluation Date 12/27/18 Treatment Diagnosis Weakness, diarrhea Diagnosis Onset Date 12/24/18 M3 OT- IP Subjective and Pain Start: 12/27/18 12:09 Freq: Status: Active Protocol: Document 12/28/18 13:35 [facility] (Rec: 12/28/18 13:48 [facility] [id number]) OT- Subjective Occupational Therapy Visit Type Type Treatment Note Visit Start Time 13:00 Visit Stop Time 13:30 Total Visit Minutes 30 Occupational Therapy Visit Comments Patient Comments Pt willing to get up. OT Pain Assessment Pain When Pain Assessed At Rest Pain Present Pain Present Denied Pain M4 OT- IP ADL's Start: 12/27/18 12:09 Freq: Status: Active Protocol: Document 12/28/18 13:35 [facility] (Rec: 12/28/18 13:48 [facility] [id number]) OT ADL-Grooming Comments OT Grooming Comments Pt able to wash her hands and face after set-up of wash cloth. Pt not wanting to brush her hair. OT ADL-Dressing General Eval Lower Body Dressing Ability Total Assistance Comments OT Dressing Comments Pt states able to do socks at home be refusing to gerald today and feels too weak and unable to reach down to her feet. OT ADL-Toileting General Evaluation Toileting Ability Total Assistance Areas Needing Assistance Manage Clothing Perform Perineal Hygiene Comments OT Toileting Comments Pt dependent to assist to clean/do hygiene in bed as just having diarrhea. M5 OT- IP IADL's Start: 12/27/18 12:09 Freq: Status: Active Protocol: Document 12/27/18 12:10 [facility] (Rec: 12/27/18 12:34 [facility] [id number]) OT-Instrumental Activities of Daily Living Home Safety Awareness Home Safety Comments Pt states completely independent with all IADl need , medication, shopping, and money management needs. M6 OT- IP Functional Cognition Start: 12/27/18 12:09 Freq: Status: Active Protocol: Document 12/28/18 13:35 [facility] (Rec: 12/28/18 13:48 [facility] [id number]) Cognitive Factors Limiting Selfcare Function Cognitive Ability Level of Alertness Alert Drowsy Patient Orientation Name Place Situation Attention Span Ability Unable to Focus Unable to Sustain Attention Ability to Follow Commands Able to Follow One Step Commands Memory Description Short Term Impaired Cognitive Comments Cognitive Assessment Comments Pt more groggy and drowsy and having difficulty to follow commands and needing increased time to process information. Pt not able to understand to stand up from the bed and insisting on pulling on FWW to get up. M7 OT- IP Mobility and Balance Start: 12/27/18 12:09 Freq: Status: Active Protocol: Document 12/28/18 13:35 [facility] (Rec: 12/28/18 13:48 [facility] [id number]) OT- Bed Mobility Assessment Rolling Type of Rolling Roll to Right Level of Assistance Standby Assistance Bedrails Supine to Sit Supine to Sit Assist Standby Assistance 1 Person Assistance OT-Transfer Assessment Sit to and From Stand Sit to and from Stand Minimal Assistance Moderate Assistance 2 Person Assistance Transfers Transfer Ability Moderate Assistance 1 Person Assistance Use of Upper Extremities Technique Transfer Destination Chair Devices Transfer Assistive Devices Gait Belt Front Wheeled Walker Comments Mobility Comments Pt able to roll with assist for bed rail and able to puh up from side lying half way and then needing to stop, rest and then able to get up all the way. SBA. Recommending 2 person assist for transfer as pt slow to process and unsteady especially from turning. OT- Balance Assessment Sitting Balance and Reactions Static Sitting Balance Ability Good M8 OT- IP Objective Assessments Start: 12/27/18 12:09 Freq: Status: Active Protocol: Document 12/27/18 12:10 [facility] (Rec: 12/27/18 12:34 [facility] [id number]) OT Gross Range of Motion Upper Extremity Range of Motion Assessment Within Functional Limits OT Strength Comments Strength Comments BUE 4/5 M9 OT- IP Assessment and Plan Start: 12/27/18 12:09 Freq: Status: Active Protocol: Document 12/28/18 13:35 [facility] (Rec: 12/28/18 13:48 [facility] [id number]) OT Summary Assessment and Plan Potential Rehabilitation Potential Good Analytic Complexity at Evaluation Low Summary OT Impairments Strength Balance Functional Cognition Functional Mobility Dressing Toileting Bathing Toilet Transfers Shower Transfers Progress Towards Goals Slow Progress due to Medical Issues Slow Progress due to Activity Tolerance Slow Progress due to Cognition Assessment Summary Pt noted decreased ability to follow directions today and needing increased time. Pt still needing 1-2 person assist for transfers and only able to tolerate transfer at this time. Pt would benefit from skilled rehab prior to going home. Goals Self-Feeding Goal Standby Assistance Grooming Goal Standby Assistance Dressing Goal Moderate Assistance Toileting Goal Moderate Assistance Bathing Goal Moderate Assistance Toilet Transfer Goal Minimal Assistance Shower Transfer Goal Moderate Assistance Patient/Caregiver Education Goal Caregiver Independent Assisting Patient Days to Meet Goals 5 Frequency of Treatment Frequency Of Treatment Once a Day Treatment Plan OT Treatment Plan ADL Training Functional Cognition Training Functional Mobility Patient/Family Education Discharge Planning Other Treatment Recommendations and Next LB dressing with AEd GIAN, Treatment Focus transfer to [facility] with FWW GIAN. Do cognitive assessment. Discharge Recommendations OT Discharge Recommendations SNF Rehab Other Discharge Recommendations Pending medical stability and ability of family to assist pt , pt may need short skilled rehab versus home with assist. Home Equipment Needs Shower chair,FWW
--- NOTE | 2018-12-28 13:55 | CM.DANOTE ---
DCP/continued: Reviewed chart. Received notification from MD and therapy in AM rounds that patient will need SNF at time of d/c. Met with patient explained CM/SW role. Patient reluctant about SNF but agreeable for [facility] to provide referral to [facility]. [facility]/Ella faxed demographic sheet and left vm with [facility] admit line. [facility] provided with permission to speak with family re: care at home. Patient prefers to d/c home but currently this appears to be unrealistic. Patient requiring max assist and several bottom changes secondary to diarrhea. Placed call to family and spoke with grandson. He reports that patient's son/Damon is on his way from out of state and will assist with decision making. RN reports that Damon should be here by lorne. P: Pending. Hopeful that patient will be in agreement to go to [facility] for rehab when medically stable. [facility] following closely. DAISHA Kay
--- NOTE | 2018-12-28 15:42 | PM.PN.1 ---
Subjective Date Patient Seen: 12/28/18 Interval history: Patient seen and examined. She is sitting up to a chair. She continues to have diarrhea. She has had 5 episodes of loose stools. In addition she has some excoriations on her sacrum from the diarrhea. Patient denies any shortness of breath. Her rash over the chest abdomen and back is fading. Patient appears to be more agreeable to sniff care at discharge. Exam Vital Signs (past 8 hours): - 12/28/18 08:00 12/28/18 10:16 12/28/18 12:00 Temperature 98.4 F 97.3 F L Pulse Rate 66 64 Respiratory Rate 18 22 Blood Pressure 142/58 H 129/65 Pulse Oximetry 95 95 96 Oxygen Delivery Method Room Air Oxygen Flow Rate 0 Narrative Exam Narrative: Pleasant female and sitting in a chair, somewhat distressed but less confused Lungs: Decreased breath sounds with occasional scattered rhonchi Cardiac exam: Regular rate and rhythm normal S1 and S2 with a 2/6 systolic ejection murmur Abdomen: Distended soft nontender Extremities: No edema Skin: Fading macular eruption on the chest abdomen and back Objective Labs Result Diagrams: 12/27/18 14:21 12/27/18 14:21 Labs: Laboratory Results - last 24 hr 12/27/18 12/27/18 14:21 14:21 Plt Count 171 Platelet Estimate Adequate on smear RBC Morphology See below Sodium 137 Potassium 4.4 Chloride 110 H Carbon Dioxide 18 L BUN 101 H Creatinine 2.20 H Estimated GFR 21.9 L BUN/Creatinine Ratio 45.9 H Glucose 126 H Calcium 7.8 L Total Bilirubin 0.8 AST 42 H ALT 34 Alkaline Phosphatase 55 Total Protein 6.5 Albumin 2.5 L Globulin 4.0 Albumin/Globulin Ratio 0.6 L Assessment & Plan Assessment Narrative: 1. Metabolic encephalopathy, present on admission, resolved 2. Drug eruption, resolving suspect either ciprofloxacin and Flagyl 3. Mild colitis, no further treatment at this time 4. Acute renal failure, present on admission, slowly improved 5. Hepatic encephalopathy, improving, worsening diarrhea on the lactulose. Will discontinue lactulose at this time, follow up on her ammonia level, will continue refer max a 6. Hypothyroidism, back on usual thyroid medication 7. Cirrhosis, chronic, secondary to hepatitis-C 8. Morbid obesity Plan Narrative: Will discontinue lactulose given significant diarrhea. Antibiotics discontinued given probable drug eruption. Will discontinue Nesbitt catheter at discharge. She has low urine output will consider low-dose Lasix to mobilize 3rd spaced fluid. Continue PT OT. Patient making slow progress. Quality VTE Deep Vein Thrombosis/Pulmonary Embolism Present on Admission: No
[2018-12-28 18:30] LABS: Alanine Aminotransferase 27 IU/L (9-52); Albumin 2.7 g/dL (3.5-5.0); Albumin Globulin Ratio 0.7 (1.0-2.8); Alkaline Phosphatase 63 U/L (38-126); Aspartate Aminotransferase 37 IU/L (14-36); BUN Creatinine Ratio 55.6 (6-22); Bilirubin Total 0.9 mg/dL (0.2-1.3); Blood Urea Nitrogen 100 mg/dL (7-17); Calcium 8.1 mg/dL (8.4-10.2); Carbon Dioxide 16 mmol/L (22-32); Chloride 112 mmol/L (98-107); Estimated Glomerular Filt Rate 27.6 mL/min (>60); Globulin 4.1 g/dL (1.7-4.1); Glucose 131 mg/dL (80-110); HEMOLYSIS 24 (0-50); Potassium 4.5 mmol/L (3.4-5.1); Sodium 138 mmol/L (137-145); Total Protein 6.8 g/dL (6.3-8.2)
[2018-12-28 19:29] LABS: Add Manual Diff / Slide Review NO; Basophils Absolute Auto 100 /uL (0-100); Basophils Percent Auto 1.4 % (0-2); Eosinophils Absolute Auto 200 /uL (0-450); Eosinophils Percent Auto 2.5 % (2-4); Hematocrit 42.9 % (36-46); Hemoglobin 14.3 g/dL (12.0-16.0); Lymphocytes Absolute Auto 2900 /uL (1100-4500); Lymphocytes Percent Auto 28.9 % (25-40); Mean Corpuscular HGB Conc 33.3 % (30-36); Mean Corpuscular Hemoglobin 29.3 PG (26-34); Monocytes Absolute Auto 600 /uL (0-900); Monocytes Percent Auto 6.5 % (3-14); Neutrophils Absolute Auto 6000 /uL (1500-7000); Neutrophils Percent Auto 60.7 % (50-75); Platelet Count 164 X10^3/uL (150-400); Red Blood Cell Count 4.87 X10^6/uL (4.0-5.2); Red Cell Distribution Width 15.3 % (11.6-14.8); White Blood Cell Count 9.9 X10^3/uL (4.5-11.0)
[2018-12-28] MEDS: FUROSEMIDE 20 MG/2 ML VIAL IV (19:51)
[2018-12-28] MEDS: ALBUMIN HUMAN 25 GM/100 ML VIAL IV (19:52)
--- NOTE | 2018-12-28 22:03 | PC.NURSE ---
Pt up in chair most of the shift. Had only one large loose stool this shift. Son arrived around 1800. Pt has been calm and cooperative.
[2018-12-29 00:30] VITALS: O2SAT 95
[2018-12-29 05:27] LABS: Add Manual Diff / Slide Review NO; Basophils Absolute Auto 100 /uL (0-100); Eosinophils Absolute Auto 300 /uL (0-450); Eosinophils Percent Auto 3.5 % (2-4); Hematocrit 38.8 % (36-46); Lymphocytes Absolute Auto 2400 /uL (1100-4500); Lymphocytes Percent Auto 28.1 % (25-40); Mean Corpuscular HGB Conc 33.5 % (30-36); Mean Corpuscular Hemoglobin 29.3 PG (26-34); Mean Corpuscular Volume 87.6 fL (80-100); Monocytes Absolute Auto 500 /uL (0-900); Monocytes Percent Auto 6.5 % (3-14); Neutrophils Absolute Auto 5100 /uL (1500-7000); Neutrophils Percent Auto 60.9 % (50-75); Platelet Count 140 X10^3/uL (150-400); Red Blood Cell Count 4.43 X10^6/uL (4.0-5.2); Red Cell Distribution Width 15.8 % (11.6-14.8); White Blood Cell Count 8.4 X10^3/uL (4.5-11.0)
[2018-12-29 05:32] LABS: Alanine Aminotransferase 29 IU/L (9-52); Albumin 2.8 g/dL (3.5-5.0); Albumin Globulin Ratio 0.7 (1.0-2.8); Alkaline Phosphatase 59 U/L (38-126); Aspartate Aminotransferase 30 IU/L (14-36); BUN Creatinine Ratio 53.9 (6-22); Bilirubin Total 0.8 mg/dL (0.2-1.3); Blood Urea Nitrogen 97 mg/dL (7-17); Carbon Dioxide 18 mmol/L (22-32); Chloride 112 mmol/L (98-107); Estimated Glomerular Filt Rate 27.6 mL/min (>60); Globulin 3.9 g/dL (1.7-4.1); Glucose 112 mg/dL (80-110); HEMOLYSIS < 15 (0-50); Potassium 4.3 mmol/L (3.4-5.1); Sodium 138 mmol/L (137-145); Total Protein 6.7 g/dL (6.3-8.2)
[2018-12-29] MEDS: LEVOTHYROXINE 100 MCG TABLET 200 MCG PO (06:05)
[2018-12-29 06:12] VITALS: BP 125/68; PULSE 66; RESP 18; TEMP 37; O2SAT 94
--- NOTE | 2018-12-29 06:17 | PC.NURSE ---
Addendum entered by Kishor Gonsalves R.N. 12/29/18 06:19: 0600: Awakened for vital signs and destiney care. Pt resistant to cares but agreed to allow vital signs to be taken, and destiney care. Incontinent of small amt loose stool. Sauceda cath care and destiney care given, barrier cream applied, and new sheppard for sauceda catheter placed. Clean gown on. Assisted to reposition. Original Note: Trial Attorney Note: 0030: Sleeping, drowsy when awakened. Pt irritible but follows commands and answers questions. IV in place in rt upper arm. Sauceda catheter patent, with dk brown urine. Vital signs stable.
[2018-12-29 08:00] VITALS: BP 151/56; PULSE 65; RESP 22; TEMP 36.7; O2SAT 94
[2018-12-29 09:30] VITALS: O2SAT 94
[2018-12-29] MEDS: PROPRANOLOL 10 MG TABLET PO ×2 (09:41→14:49)
[2018-12-29] MEDS: RIFAXIMIN 550 MG TABLET PO (09:41)
[2018-12-29] MEDS: HEPARIN 5,000 UNIT/ML VIAL 5000 UNIT SUBCUT (09:41)
[2018-12-29 09:53] VITALS: PULSE 65; RESP 18; O2SAT 95
[2018-12-29 11:34] VITALS: BP 134/74; PULSE 64; RESP 20; TEMP 36.8; O2SAT 94
--- NOTE | 2018-12-29 11:57 | OT.IP.TRT ---
Current Diagnoses Dehydration (12/24/18) Diarrhea, unspecified (12/24/18) Occupational Therapy Treatment Note M2 OT-IP Current Condition Start: 12/27/18 12:09 Freq: Status: Active Protocol: Document 12/27/18 12:10 [facility] (Rec: 12/27/18 12:34 [facility] [id number]) Occupational Therapy Current Condition Current Condition Evaluation Date 12/27/18 Treatment Diagnosis Weakness, diarrhea Diagnosis Onset Date 12/24/18 M3 OT- IP Subjective and Pain Start: 12/27/18 12:09 Freq: Status: Active Protocol: Document 12/29/18 11:56 [facility] (Rec: 12/29/18 11:57 [facility] [id number]) OT- Subjective Occupational Therapy Visit Type Type Patient Refusal Notes Pt complaining of feeling nauseous right after family left the room and not wanting to participate in therapy at this time. Therefore to check on pt in the afternoon. Nursing notified.
--- NOTE | 2018-12-29 12:36 | PT.IPTN ---
Current Diagnoses Dehydration (12/24/18) Diarrhea, unspecified (12/24/18) Physical Therapy Treatment Note M2 PT-IP Current Condition Start: 12/26/18 15:54 Freq: NEEDED Status: Active Protocol: Document 12/26/18 15:54 [facility] (Rec: 12/26/18 16:02 [facility] [id number]) Physical Therapy Current Condition Current Condition Evaluation Date 12/26/18 Treatment Diagnosis diarrhea, weakness M3 PT-IP Subjective Start: 12/26/18 15:54 Freq: NEEDED Status: Active Protocol: Document 12/29/18 12:36 [facility] (Rec: 12/29/18 12:36 AB [id number]) Subjective Physical Therapy Visit Type Type Patient Refusal Notes pt refused PT. stated that she is nauseated and does not want to get up and do PT.
--- NOTE | 2018-12-29 14:39 | PM.DS.1 ---
History of Present Illness Date Patient Seen: 12/29/18 Chief complaint: diarrhea x 2days Narrative: Patient is a 73-year-old female who was brought to emergency department due to severe weakness and recent diarrhea. Patient reports onset of severe watery diarrhea 2 weeks prior to admission. She reports 10 or more watery nonbloody bowel movements a day. She also had some fever. Denies much abdominal pain other than mild cramping. Had 1 or 2 episodes of vomiting but predominantly symptom was diarrhea. She took 2 Imodium tablets yesterday and the diarrhea has stopped. However, she has gotten progressively weak to the point where unable to get out of bed today and found incontinent. Patient denies recent travel. She denies a cough, urinary burning or urgency. Noncontrast abdomen and pelvic CT showed mild bowel thickening of ascending and sigmoid colon, also noted were findings of cirrhosis and portal hypertension with mild ascites and a mild right pleural effusion. Head CT without acute findings. Chest x-ray with increased vascularity suggestive of edema. On blood work, patient was noted to be in acute renal failure with BUN 117, creatinine 2.60. Potassium 4.7, normal. WBC 12.4 with slight left shift. Discharge Providers Date of admission: 12/24/18 17:39 Primary care physician: Justyna Watson PA-C Consults: 12/24/18 19:35 Consult to Dietitian, Adult Routine Comment: Reason For Exam: diarrhea for 14 days wt loss no appetite 12/26/18 14:02 Consult to Occupational Therapy Evaluate & Treat Comment: Physician Instructions: Evaluate and treat Consult to Physical Therapy Evaluate & Treat Comment: Physician Instructions: Evaluate and Treat Discharge provider: Fiorella Zuleta MD Discharge Date: 12/29/18 Summary Discharge Diagnosis: Acute mild colitis, resolved, present on admission Acute drug eruption, resolving Acute renal failure, present on admission Acute hepatic encephalopathy, resolved Hepatitis-C, present on admission Cirrhosis, present on admission Ascites and varices, present on admission Hypothyroidism, chronic Hyponatremia, resolved Morbid obesity Sacral decubitus ulcers Hospital Course: Patient is 73-year-old female admitted to the hospital with acute colitis. She was placed on ciprofloxacin and Flagyl. Patient has significant voluminous diarrhea. Her C diff was negative. Patient also developed hepatic encephalopathy. The patient was treated with lactulose with improvement of her symptomatology. Her lactulose needed to be adjusted given her multiple frequent loose stools. The patient was found to have ascites and varices on CT scan. She was placed on beta-charla for this. Patient had significant 3rd spacing. It she got doses of albumin and Lasix with improvement in her renal function and lower extremity edema. The patient developed a drug eruption while on ciprofloxacin and Flagyl. Both medications were discontinued. The patient was seen by Physical therapy and Occupational therapy. It was felt that she was too weak to return to independent living at this time. She also had significant skin breakdown in the sacral area. Patient made slow but steady improvement. She was deemed appropriate for transfer to correction unit for ongoing care. Status at Discharge Functional status at discharge: uses cane/walker Overall status at discharge: patient is not back to baseline Time Spent with Patient Less than 30 minutes Exam Vital Signs (past 8 hours): - 12/29/18 08:00 12/29/18 09:30 12/29/18 09:53 Temperature 98.1 F Pulse Rate 65 65 Respiratory Rate 22 18 Blood Pressure 151/56 H Pulse Oximetry 94 94 95 12/29/18 11:34 Temperature 98.3 F Pulse Rate 64 Respiratory Rate 20 Blood Pressure 134/74 Pulse Oximetry 94 Fraction of Inspired Oxygen 21 Oxygen Delivery Method Room Air Oxygen Flow Rate 0 Narrative Exam Narrative: Ill appearing disheveled female resting comfortably Lungs: Decreased breath sounds with occasional wheezing Cardiac exam regular rate and rhythm normal S1 and S2 with a 2/6 systolic ejection murmur Abdomen: Soft nontender mildly distended fluid weight not appreciate Sacrum: Excoriated area near the anus and bilateral buttocks, with erythema and early skin breakdown Extremities: 2+ pitting edema Objective Labs Result Diagrams: 12/29/18 05:03 12/29/18 05:03 Labs: Laboratory Results - last 24 hr 12/28/18 12/28/18 12/28/18 18:00 18:00 18:00 WBC 9.9 RBC 4.87 Hgb 14.3 Hct 42.9 MCV 88.0 MCH 29.3 MCHC 33.3 RDW 15.3 H Plt Count 164 Neut % (Auto) 60.7 Lymph % (Auto) 28.9 [place] % (Auto) 6.5 Eos % (Auto) 2.5 Baso % (Auto) 1.4 Neut # (Auto) 6000 Lymph # (Auto) 2900 [place] # (Auto) 600 Eos # (Auto) 200 Baso # (Auto) 100 Sodium 138 Potassium 4.5 Chloride 112 H Carbon Dioxide 16 L BUN 100 H Creatinine 1.80 H Estimated GFR 27.6 L BUN/Creatinine Ratio 55.6 H Glucose 131 H Calcium 8.1 L Total Bilirubin 0.9 AST 37 H ALT 27 Alkaline Phosphatase 63 Ammonia 36.0 H Total Protein 6.8 Albumin 2.7 L Globulin 4.1 Albumin/Globulin Ratio 0.7 L 12/29/18 12/29/18 05:03 05:03 WBC 8.4 RBC 4.43 Hgb 13.0 Hct 38.8 MCV 87.6 MCH 29.3 MCHC 33.5 RDW 15.8 H Plt Count 140 L Neut % (Auto) 60.9 Lymph % (Auto) 28.1 [place] % (Auto) 6.5 Eos % (Auto) 3.5 Baso % (Auto) 1.0 Neut # (Auto) 5100 Lymph # (Auto) 2400 [place] # (Auto) 500 Eos # (Auto) 300 Baso # (Auto) 100 Sodium 138 Potassium 4.3 Chloride 112 H Carbon Dioxide 18 L BUN 97 H Creatinine 1.80 H Estimated GFR 27.6 L BUN/Creatinine Ratio 53.9 H Glucose 112 H Calcium 8.0 L Total Bilirubin 0.8 AST 30 ALT 29 Alkaline Phosphatase 59 Ammonia Total Protein 6.7 Albumin 2.8 L Globulin 3.9 Albumin/Globulin Ratio 0.7 L Discharge Plan Discharge Plan Patient Disposition: SNF Transfer to: [facility] Transportation: [facility] I certify the postop hospital correction care is medically necessary on a continuing basis for any conditions for which he/ she received care during this hospitalization.: Yes The receiving facility has agreed to accept transfer and provide medical treatment.: Yes Discharge Med Rec/Prescriptions Prescriptions: New ipratropium-albuterol 0.5 mg-3 mg(2.5 mg base)/3 mL Solution For Nebulization 3 ml INH RTQ4HR PRN (Reason: Shortness Of Breath) 30 Days RF: 0 levothyroxine [Synthroid] 100 mcg Tablet 200 mcg PO 0600 30 Days Qty: 60 RF: 0 propranolol 10 mg Tablet 10 mg PO TID 30 Days Qty: 90 RF: 0 ondansetron 4 mg Tablet,Disintegrating 4 mg Sublingual Q4HR PRN (Reason: Nausea) 15 Days RF: 0 Xifaxan 550 mg Tablet 550 mg PO BID 30 Days Qty: 60 RF: 0 lactulose 10 gram packet 20 gram PO BID 30 Days RF: 0 Continued levothyroxine 175 mcg Tablet 175 mcg PO DAILY RF: 0 trazodone 50 mg Tablet 50 - 100 mg PO BEDTIME RF: 0 gabapentin 100 mg Capsule 100 mg PO DAILY RF: 0 Discontinued meloxicam 15 mg Tablet 15 mg PO DAILY RF: 0 Follow up/Referrals: Justyna Watson PA-C [Primary Care Provider] - Provider Discharge Instructions Diet: Low-sodium and Low-cholesterol Liquid consistency: Normal/Thin Food texture: Regular Activity: as tolerated Skin/Wound/Dressing Care Skin care: calmoseptine to sacral/buttock area Other wound treatment: as above Special Rehabilitation Services Reason for rehabilitation: Recovery r/t decondition Rehab type: Physical therapy and Occupational therapy Restrictions to mobility: None Discharge Data Primary Care Provider: Justyna Watson Attending Provider: Herson Williamson Admit Date/Time: 12/24/18 17:39 Discharges patient from system. Discharge Date/Time: 12/29/18 16:20 Quality VTE Deep Vein Thrombosis/Pulmonary Embolism Present on Admission: No
[2018-12-29] MEDS: ONDANSETRON 4 MG ODT SL (14:49)
--- NOTE | 2018-12-29 14:55 | PT.IPTN ---
Current Diagnoses Dehydration (12/24/18) Diarrhea, unspecified (12/24/18) Physical Therapy Treatment Note M2 PT-IP Current Condition Start: 12/26/18 15:54 Freq: NEEDED Status: Active Protocol: Document 12/26/18 15:54 RCC (Rec: 12/26/18 16:02 RCC [id number]) Physical Therapy Current Condition Current Condition Evaluation Date 12/26/18 Treatment Diagnosis diarrhea, weakness M3 PT-IP Subjective Start: 12/26/18 15:54 Freq: NEEDED Status: Active Protocol: Document 12/29/18 14:42 SA (Rec: 12/29/18 14:55 SA [id number]) Subjective Physical Therapy Visit Type Type Treatment Note Visit Start Time 14:13 Visit Stop Time 14:38 Total Visit Minutes 25 Notes Pt states she is still nauseus . Required much encouragement to participate in PT. Number of FISHER SPEAR Visits 1 Physical Therapy Visit Comments Patient Comments Pt given saltines and afia cammy, agreeable to try and get OOB. Therapy Pain Assessment Pain When Pain Assessed At Rest Pain Present Pain Present Denied Pain M4 PT-IP Mobility and Gait Start: 12/26/18 15:54 Freq: NEEDED Status: Active Protocol: Document 12/29/18 14:42 SA (Rec: 12/29/18 14:55 [id number]) PT-Bed Mobility Assessment Rolling Type of Rolling Roll to Right Level of Assist Minimal Assistance 1 Person Assistance Supine to Sit Supine to Sit Contact Guard Assistance Bedrails Sit to Supine Sit to Supine Minimal Assistance 1 Person Assistance Bedrails Scooting Scooting to Edge of Bed Contact Guard Assistance Scooting Up and Down in Bed Contact Guard Assistance PT-Transfer Assessment Sit to and From Stand Sit to and from Stand Moderate Assistance 1 Person Assistance Use of Upper Extremities Comments Mobility Comments Pt min-mod A with sit to stand from EOB to FWW, pt refused to stand pivot tx to chair stating she is just too tired, did 3 lateral steps towards EOB with CGA and Mod cues. Pt groggy and with slow processing, needs single step commands and increased time to process. Gait Assessment Comments Gait Comments PT refused to attempt. M5 PT-IP Objective Assessments Start: 12/26/18 15:54 Freq: NEEDED Status: Active Protocol: Document 12/26/18 15:54 RCC (Rec: 12/26/18 16:02 RCC [id number]) Orientation Orientation/Cognition Level of Alertness Lethargic Comments responds to first name, uanble to answer questions besides very simple ones, with yes/no responses Strength Lower Extremity Strength Assessment Bilaterally Impaired Comments Strength Comments unable to formally test Sensation Assessment Comments Sensation Comments unable to test M6 PT-IP Treatment Start: 12/26/18 15:54 Freq: NEEDED Status: Active Protocol: Document 12/29/18 14:42 SA (Rec: 12/29/18 14:55 [id number]) Physical Therapy Treatment Exercises Exercises Ankle Pumps Gluteal Sets Quad Sets Education Education Provided Safety Other Treatments Other Treatment Performed Education regarding expectations for rehab at SNF. Pt demonstrates poor motivation/initiation of tasks . M7 PT-IP Assessment and Plan Start: 12/26/18 15:54 Freq: NEEDED Status: Active Protocol: Document 12/29/18 14:42 SA (Rec: 12/29/18 14:55 [id number]) PT Summary Assessment and Plan Summary Assessment Summary Poor activity tolerance and motivation with therapy. Pt to d/c to SNF for continued rehab to improve strength, activity tolerance and functional mobility. Frequency of Treatment Frequency Of Treatment Once a Day Treatment Plan Physical Therapy Treatment Plan Bed Mobility Training Transfer Training Gait Training Therapeutic Exercise Balance Retraining Discharge Planning Neuromuscular Re-ed Discharge Recommendations PT Discharge Recommendations SNF Rehab
--- NOTE | 2018-12-29 15:41 | CM.DPC ---
DCP/continued: Reviewed chart. GRIPPER INSTALLER met with patient and family re: d/c planning. All in agreement that SNF for short rehab stay best option. [facility] first choice. Placed call to Yumiko at [facility] and she reports that authorization from payor received and patient accepted. Patient aware and agreeable to plan. Spoke with therapy and w/c transport to facility okay. No additional needs identified. P: [facility] today. Patient scheduled to be picked up around 4:00pm. RN updated. Orders and [facility] faxed. DAISHA Kay
--- NOTE | 2018-12-29 15:55 | PC.NURSE ---
Discharge Pt denied pain this shift. Did c/o nausea and was medicated with SL zofran. Up with PT in afternoon. Family present at bedside off and on through shift. Report called to Yumiko at [facility] around 1540. No PIV at start of shift. sauceda in place draining dark brown urine. no BM this shift.
== END 2018-12-29 16:20 | DRG 682 ==
LOC: ED 17:27 → AC 17:40
PROVIDERS: Emergency Medicine; Internal Medicine; Admitting Provider Internal Medicine; Emergency Provider Nurse Practitioner Family; PCP Physician Assistant; Visit Provider Internal Medicine
DX: N17.9 Acute kidney failure, unspecified (principal); K72.00 Acute and subacute hepatic failure without coma; A09 Infectious gastroenteritis and colitis, unspecified; K76.6 Portal hypertension; R18.8 Other ascites; Z68.41 Body mass index [BMI] 40.0-44.9, adult; E87.0 Hyperosmolality and hypernatremia; E86.9 Volume depletion, unspecified; I86.8 Varicose veins of other specified sites; B18.2 Chronic viral hepatitis C; K74.69 Other cirrhosis of liver; E66.01 Morbid (severe) obesity due to excess calories; E03.9 Hypothyroidism, unspecified; T36.8X5A Adverse effect of other systemic antibiotics, initial encounter; L89.151 Pressure ulcer of sacral region, stage 1
CPT/HCPCS: 36415; 36591; 36600; 70450; 71045; 74176; 80048; 80053; 80069; 81001; 82140; 82550; 82805; 83519; 83605; 83735; 84145; 84439; 84443; 84484; 85025; 86803; 87040; 87086; 87507; 87522; 93005; 94760; 96360; 96361; 97163; 97165; 97530; 99284; J0744; J1644; J1940; J7050; P9041

== ENCOUNTER → 2019-03-02 13:18 | Outpatient (CLI) | payer MEDICARE, SELFPAY ==
[2018-12-24 19:15] VITALS: BMI 39.4
[2019-03-02 14:06] LABS: BUN Creatinine Ratio 22.9 (6-22); Blood Urea Nitrogen 32 mg/dL (7-17); Carbon Dioxide 22 mmol/L (22-32); Chloride 102 mmol/L (98-107); Estimated Glomerular Filt Rate 36.9 mL/min (>60); Glucose 93 mg/dL (80-110); HEMOLYSIS < 15 (0-50); Potassium 4.6 mmol/L (3.4-5.1); Sodium 133 mmol/L (137-145)
[2019-03-02 14:07] LABS: B Type Natriuretic Peptide 803 (<100)
== END ==
PROVIDERS: PCP Physician Assistant; Visit Provider Physician Assistant
DX: E03.9 Hypothyroidism, unspecified (principal); N17.9 Acute kidney failure, unspecified; R06.02 Shortness of breath; R06.01 Orthopnea
CPT/HCPCS: 36415; 80048; 83880; 84443

== ENCOUNTER → 2019-03-16 11:36 | Outpatient (CLI) | payer MEDICARE, SELFPAY ==
[2018-12-24 19:15] VITALS: BMI 39.4
--- NOTE | 2019-03-16 | DI.RAD.S_ITS ---
PROCEDURE: XR CHEST 2V INDICATIONS: HEART FAILURE TECHNIQUE: 2 views of the chest were acquired. COMPARISON: [facility], CR, XR CHEST 1V, 12/26/2018, 15:09. FINDINGS: Surgical changes and devices: None. Lungs and pleura: There is a mild to moderate right effusion. Increased pulmonary vascularity is present. Mediastinum: Mediastinal contours are normal. Heart size is normal. Bones and chest wall: No suspicious bony abnormalities. Soft tissues appear unremarkable. IMPRESSION: Interval development of right pleural effusion as above with increased vascularity. Superimposed areas of underlying pneumonia and/or atelectasis cannot be excluded. Recommend interval followup to document resolution as present underlying mass lesion cannot be excluded. Dictated by: Serena Walter M.D. on 03/16/2019 at 16:07 Approved by: Serena Walter M.D. on 03/16/2019 at 16:11
[2019-03-16 12:28] LABS: Add Manual Diff / Slide Review NO; Basophils Absolute Auto 0 /uL (0-100); Basophils Percent Auto 0.3 % (0-2); Eosinophils Absolute Auto 100 /uL (0-450); Eosinophils Percent Auto 1.3 % (2-4); Hematocrit 45.4 % (36-46); Hemoglobin 14.9 g/dL (12.0-16.0); Lymphocytes Absolute Auto 5500 /uL (1100-4500); Lymphocytes Percent Auto 49.8 % (25-40); Mean Corpuscular HGB Conc 32.8 % (30-36); Mean Corpuscular Hemoglobin 29.6 PG (26-34); Mean Corpuscular Volume 90.2 fL (80-100); Monocytes Absolute Auto 500 /uL (0-900); Monocytes Percent Auto 4.4 % (3-14); Neutrophils Absolute Auto 4800 /uL (1500-7000); Neutrophils Percent Auto 44.2 % (50-75); Platelet Count 256 X10^3/uL (150-400); Red Blood Cell Count 5.03 X10^6/uL (4.0-5.2)
[2019-03-16 12:32] LABS: Prothrombin Time 11.3 SECONDS (10.1-12.7)
[2019-03-16 12:34] LABS: PTT Partial Thromboplastin Tim 33 SECONDS (26.4-36.2)
[2019-03-16 12:45] LABS: B Type Natriuretic Peptide 429 (<100)
[2019-03-16 12:59] LABS: Alanine Aminotransferase 15 IU/L (9-52); Albumin 2.9 g/dL (3.5-5.0); Albumin Globulin Ratio 0.8 (1.0-2.8); Alkaline Phosphatase 73 U/L (38-126); Aspartate Aminotransferase 26 IU/L (14-36); BUN Creatinine Ratio 21.9 (6-22); Bilirubin Total 0.7 mg/dL (0.2-1.3); Blood Urea Nitrogen 35 mg/dL (7-17); Calcium 8.6 mg/dL (8.4-10.2); Carbon Dioxide 18 mmol/L (22-32); Chloride 105 mmol/L (98-107); Estimated Glomerular Filt Rate 31.6 mL/min (>60); Globulin 3.5 g/dL (1.7-4.1); Glucose 91 mg/dL (80-110); HEMOLYSIS < 15 (0-50); Potassium 4.2 mmol/L (3.4-5.1); Sodium 134 mmol/L (137-145); Total Protein 6.4 g/dL (6.3-8.2)
== END ==
PROVIDERS: Visit Provider Internal Medicine
DX: J90 Pleural effusion, not elsewhere classified (principal); I50.9 Heart failure, unspecified; K74.60 Unspecified cirrhosis of liver; R18.8 Other ascites; R06.00 Dyspnea, unspecified
CPT/HCPCS: 36415; 71046; 80053; 83880; 85025; 85610; 85730

== ENCOUNTER → 2019-03-28 14:35 | Outpatient (CLI) | payer MEDICARE, SELFPAY ==
[2018-12-24 19:15] VITALS: BMI 39.4
--- NOTE | 2019-03-28 | DI.ECHO.S_ITS ---
[facility] +---------+ [facility] +---------+ : : [address] : : : : [id number] : : : : Phone: [phone] Echocardiogram Report + + :Name: NINOSKA SWIFT Study Date: 03/28/2019 Height: 65 in : :[facility] Exam Location: [facility] Weight: 238 lb : : Gender: Female BSA: 2.1 m2 : :: 1945 Age: 73 yrs BP: 110/80 mmHg: :Reason For Study: SOB : : Performed By: Stephanie Page : :Referring: LARRY ODELL : + + Interpretation Summary Normal left ventricle size with hyperdynamic function. The ejection fraction is 65-70%. Severely dilated left atrium. Mild aortic valve sclerosis. Mild mitral annular calcification. The right ventricular systolic pressure is estimated to be at least 35 mmHg based on an estimated right atrial pressure of 3 mm Hg. Procedure: A two-dimensional transthoracic echocardiogram with color flow and Doppler was performed. The study quality was technically adequate. There is no prior echocardiogram noted for this patient. The heart rate ranged between 110-130 bpm during the study. Left Ventricle: The left ventricle is normal in size. There is normal left ventricular wall thickness. The left ventricle is hyperdynamic. The ejection fraction is estimated to be 65-70%. There are no focal wall motion abnormalities. Diastolic function could not be accurately assessed due to tachycardia. Right Ventricle: The right ventricle is normal in size and function. Atria: The left atrium is severely dilated. Right atrial size is normal. There is no Doppler evidence for an interatrial shunt. Mitral Valve: The mitral valve leaflets appear mildly thickened, but open well. There is mild mitral annular calcification. There is trace mitral regurgitation. Aortic Valve: The aortic valve is trileaflet. The aortic valve is slightly calcified. There is mild aortic valve sclerosis. No aortic regurgitation is present. Tricuspid Valve: The tricuspid valve is normal in structure and function. There is trace tricuspid regurgitation. The right ventricular systolic pressure is estimated to be at least 35 mmHg based on an estimated right atrial pressure of 3 mm Hg. Pulmonic Valve: The pulmonic valve is not well visualized. There is trace pulmonic regurgitation. Great Vessels: The aortic root is normal size. The ascending aorta is normal in size. The pulmonary is not well visualized. The IVC is of normal diameter and collapses greater than 50% with a sniff. This suggests a low right atrial pressure of 3 mm Hg. Pericardium/ Pleura There is no pericardial effusion. There is a moderate right-sided pleural effusion. MMode/2D Measurements & Calculations LVIDd: 4.4 cm LVOT diam: 2.3 cm LVIDs: 2.2 cm Ao root diam: 3.4 cm FS: 50.4 % asc Aorta Diam: 3.3 cm EPSS: 0.11 cm IVSd: 1.1 cm LVPWd: 0.99 cm LV couch. diameter/BSA (cm/m^2): 2.1 LV sys. diameter/BSA (cm/m^2): 1.0 LA A2 area: 31.8 cm2 RA long axis: 4.9 cm LA A4 area: 24.0 cm2 RA area: 18.2 cm2 LA length (vol): 6.4 cm RA vol: 58.2 ml LA vol: 101.1 ml RA : 27.3 ml/m2 LA vol index: 47.5 ml/m2 IVC diam: 1.5 cm RVD1 (basal): 3.8 cm RVD2 (mid): 3.5 cm Doppler Measurements & Calculations Ao V2 max: 110.7 cm/sec LVOT Max Thad: 89.1 cm/sec Ao V2 mean: 80.1 cm/sec LV V1 max P.2 mmHg Ao max P.9 mmHg LV V1 VTI: 14.8 cm Ao mean P.8 mmHg KEYLA(I,D): 3.7 cm2 Ao V2 VTI: 17.4 cm KEYLA(V,D): 3.5 cm2 sev ratio: 0.85 KEYLA indexed to BSA (cm^2/m^2): 1.7 MV E max thad: 153.3 cm/sec TR max thad: 280.6 cm/sec Med Peak E' Thad: 9.6 cm/sec TR max P.6 mmHg E/E' med: 16.0 PA V2 max: 77.5 cm/sec Lat Peak E' Thad: 17.5 cm/sec PA V2 mean: 51.7 cm/sec E/E' lat: 8.7 PA mean P.2 mmHg E/e' average: 12.4 PA Accel Time: 0.07 sec MV P1/2t: 44.5 msec MVA(VTI): 3.8 cm2 MV V2 mean: 98.4 cm/sec MV P1/2t max thad: 153.5 cm/sec MV mean P.8 mmHg MVA(P1/2t): 4.9 cm2 MV V2 VTI: 16.9 cm SV(LVOT): 63.6 ml Electronically signed by: Juan Pablo Wynn on Reading Physician:03/28/2019 04:08 PM
== END ==
PROVIDERS: PCP Internal Medicine; Visit Provider Physician Assistant
DX: I35.8 Other nonrheumatic aortic valve disorders (principal); R06.02 Shortness of breath; J90 Pleural effusion, not elsewhere classified
CPT/HCPCS: 93306

== ENCOUNTER 2019-08-01 14:24 | Observation (INO) | payer MEDICARE, MEDICAID, SELFPAY ==
[2018-12-24 19:15] VITALS: BMI 39.4
[2019-08-01 14:27] VITALS: BP 138/88; PULSE 94; RESP 17; TEMP 36.6; O2SAT 92; BMI 41.8
--- NOTE | 2019-08-01 14:44 | DI.RAD.S_ITS ---
PROCEDURE: XR CHEST 1V INDICATIONS: altered mental status TECHNIQUE: One view of the chest was acquired. COMPARISON: [facility], CR, XR CHEST 2V, 03/16/2019, 11:47. FINDINGS: Surgical changes and devices: None. Lungs and pleura: The aeration of the lungs is similar to the previous exam with elevation of the right diaphragm and blunting of the right costophrenic angle. A vague increased density is identified layering along the right lung base. The left lung appears to be well aerated. No pneumothorax is appreciated bilaterally. Mediastinum: Mediastinal contours appear normal. Heart probably is normal in size. Bones and chest wall: No suspicious bony lesions. Overlying soft tissues appear unremarkable. IMPRESSION: Small to moderate-sized right-sided pleural effusion with associated atelectasis. Superimposed pneumonia is difficult to exclude. Dictated by: Lee Estrada M.D. on 08/01/2019 at 14:23 Approved by: Lee Estrada M.D. on 08/01/2019 at 14:26
--- NOTE | 2019-08-01 15:10 | DI.US.S_ITS ---
PROCEDURE: US PERIPH VENOUS LOW EXTREM BI INDICATIONS: BILATERAL LEG SWELLING TECHNIQUE: Real-time imaging, as well as color and pulse Doppler interrogation, were performed of the deep veins of both legs from the inguinal ligament to the popliteal fossa. COMPARISON: None. FINDINGS: Right: The common femoral, femoral and popliteal veins are normally compressible, and free of intraluminal thrombus. Color and pulse Doppler demonstrate normal phasic intravascular flow. There is normal augmentation response to distal compression maneuver. Left: The common femoral, femoral and popliteal veins are normally compressible, and free of intraluminal thrombus. Color and pulse Doppler demonstrate normal phasic intravascular flow. There is normal augmentation response to distal compression maneuver. Other: Extensive subcutaneous edema is identified throughout the bilateral lower extremities. No drainable or loculated fluid collections are appreciated. IMPRESSION: No evidence of deep vein thrombosis of the bilateral lower extremities. Dictated by: Lee Estrada M.D. on 08/01/2019 at 15:43 Approved by: Lee Estrada M.D. on 08/01/2019 at 15:47
[2019-08-01 15:16] LABS: Add Manual Diff / Slide Review NO; Basophils Absolute Auto 100 /uL (0-100); Basophils Percent Auto 1.6 % (0-2); Eosinophils Absolute Auto 100 /uL (0-450); Eosinophils Percent Auto 0.8 % (2-4); Hematocrit 37.9 % (36-46); Hemoglobin 12.8 g/dL (12.0-16.0); Lymphocytes Absolute Auto 1500 /uL (1100-4500); Lymphocytes Percent Auto 18.5 % (25-40); Mean Corpuscular HGB Conc 33.8 % (30-36); Mean Corpuscular Hemoglobin 31.2 PG (26-34); Mean Corpuscular Volume 92.2 fL (80-100); Monocytes Absolute Auto 300 /uL (0-900); Neutrophils Absolute Auto 6000 /uL (1500-7000); Neutrophils Percent Auto 75.1 % (50-75); Platelet Count 244 X10^3/uL (150-400); Red Cell Distribution Width 18.4 % (11.6-14.8)
[2019-08-01 15:27] LABS: Creatine Kinase < 20 U/L (30-135)
[2019-08-01 15:27] LABS: Alanine Aminotransferase 10 IU/L (9-52); Albumin 2.6 g/dL (3.5-5.0); Albumin Globulin Ratio 0.7 (1.0-2.8); Alkaline Phosphatase 88 U/L (38-126); Aspartate Aminotransferase 31 IU/L (14-36); Bilirubin Total 1.2 mg/dL (0.2-1.3); Blood Urea Nitrogen 43 mg/dL (7-17); Calcium 8.1 mg/dL (8.4-10.2); Carbon Dioxide 26 mmol/L (22-32); Chloride 99 mmol/L (98-107); Estimated Glomerular Filt Rate 54.2 mL/min (>60); Globulin 3.8 g/dL (1.7-4.1); Glucose 106 mg/dL (80-110); HEMOLYSIS < 15 (0-50); Potassium 3.5 mmol/L (3.4-5.1); Sodium 133 mmol/L (137-145); Total Protein 6.4 g/dL (6.3-8.2)
[2019-08-01 15:28] LABS: Ammonia (NH3) < 9.0 umol/L (9-30)
[2019-08-01 15:37] LABS: B Type Natriuretic Peptide 173 (<100)
[2019-08-01 15:39] LABS: Troponin I < 0.012 ng/mL (0.01-0.034)
--- NOTE | 2019-08-01 16:43 | ED_ITS ---
HPI - Extremity Problem General Chief complaint: Extremity Problem,Nontraumatic Stated complaint: Leg weakness Time Seen by Provider: 08/01/19 14:26 Source: patient and EMS Mode of arrival: EMS History of Present Illness HPI Narrative: Patient is a 74-year-old female who presents with lower extremity edema and inability to walk. She apparently has been bed-bound for the last 1 month. She apparently was at internal Medicine today they sent her directly to the emergency department for evaluation. She has not been able to walk for last 1 month. She is supposed to be taking Lasix however according to pharmacy records she has not taken Lasix or filled it since February. She denies any shortness of breath no chest pain no heart palpitation, she has not had any fever no abdominal pain no confusion. Her daughter apparently has been her primary caregiver for the last 1 month but she really has been unable to get out of bed. She denies any trauma no back pain no numbness or tingling in her legs. She can move her toes but he simply cannot lift them off the bed due to how large they are. Related Data Home Medications Medication Instructions Recorded Confirmed levothyroxine 175 mcg PO DAILY 12/24/18 08/01/19 furosemide 20 mg PO DAILY 08/01/19 08/01/19 levothyroxine 25 mcg PO 2XW 08/01/19 08/01/19 Allergies Allergy/AdvReac Type Severity Reaction Status Date / Time morphine Allergy Verified 08/01/19 14:27 Review of Systems Review of Systems ROS Unobtainable: All systems reviewed & are unremarkable except as noted in HPI and below Constitutional Constitutional: Denies chills, Denies fever(s), Denies lethargy and Denies weakness Eyes Eyes: Denies change in vision, Denies eye discharge, Denies irritation and Denies loss of vision Cardiovascular Cardiovascular: Denies chest pain, Reports pedal edema, Reports edema, Denies irregular heart rhythm, Denies lightheadedness, Denies palpitations, Denies dyspnea, Denies dyspnea on exertion and Denies orthopnea Respiratory Respiratory: Denies cough, Denies dyspnea, Denies dyspnea on exertion and Denies wheezing Gastrointestinal Gastrointestinal: Denies abdominal pain, Denies change in bowel habits, Denies diarrhea, Denies nausea and Denies vomiting Genitourinary Genitourinary: Denies hematuria, Denies flank pain, Denies urinary incontinence and Denies urinary urgency Musculoskeletal Musculoskeletal: Denies back pain, Reports muscle weakness, Denies numbness and Denies tingling Integumentary/Breasts Skin/Breast: Denies pruritus, Denies erythema, Denies rash and Denies wounds Neurologic Neurologic: Denies loss of vision, Denies numbness, Denies sensory deficit, Denies tingling, Denies paresthesias and Denies weakness Endocrine Endocrine: Denies palpitations Allergic/Immunologic Allergic/Immunologic: Denies wheezing [facility] Medical History Hypothyroid (Acute) Surgical History History of tonsillectomy Family History (Updated 09/05/15 @ 00:00 by Conversion Provider) Mother Alcohol abuse Social History household members: family Smoking Status: Never smoker alcohol intake: never Family History Mother Alcohol abuse Social History household members: family Smoking Status: Never smoker alcohol intake: never Exam Initial Vital Signs Initial Vital Signs: Vital Signs Temperature 97.8 F 08/01/19 14:27 Pulse Rate 94 H 08/01/19 14:27 Respiratory Rate 17 08/01/19 14:27 Blood Pressure 138/88 08/01/19 14:27 Pulse Oximetry 92 08/01/19 14:27 GENERAL: Alert pleasant elderly female no acute distress HEENT: Head atraumatic,EOMI, pupils reactive, face symmetric, moist mucous membranes CARDIOVASCULAR: Regular rate and rhythm without murmurs, rubs or gallops. RESPIRATORY: Breath sounds equal bilaterally, no wheezes rales or rhonchi. ABDOMEN: Soft, nontender. Normoactive bowel sounds all 4 quadrants. No guarding or rebound. EXTREMITIES: Normal range of motion, no clubbing. Bilateral lower extremity e raheem. Legs are extremely large she is able to move her toes peripheral pulses are intact, no erythema sensation intact bilaterally NEUROLOGICAL: Alert and oriented x4.Normal gait and speech. Cranial nerves II through XII grossly intact. SKIN: Warm, dry, no laceration, no petechiae, no rashes or lesions. Course Orders Ordered: ED Orders 08/01/19 14:44 XR chest 1V Stat Urine Drug Screen, Rapid Stat EKG-12 Lead Stat 08/01/19 15:05 Ammonia (NH3) Stat Complete Blood Count AUTO DIFF Stat Comprehensive Metabolic Panel Stat 08/01/19 15:10 US periph venous low extrem bi Stat 08/01/19 15:14 B Type Natriuretic Peptide Stat Troponin & CK Cardiac Panel Stat Vital Signs Vital signs: Vital Signs - 8 hr 08/01/19 14:27 08/01/19 17:07 Temperature 97.8 F Pulse Rate 94 H 83 Respiratory Rate 17 19 Blood Pressure 138/88 Blood Pressure [Right Arm] 130/78 Pulse Oximetry 92 97 MDM - Extremity (Nontraumatic) Lab Data Attestation: I reviewed the patient's lab results. Result diagrams: 08/01/19 15:05 08/01/19 15:05 Labs: Lab Results 08/01/19 08/01/19 08/01/19 Range/Units 15:05 15:05 15:05 WBC 8.0 (4.5-11.0) X10^3/uL RBC 4.10 (4.0-5.2) X10^6/uL Hgb 12.8 (12.0-16.0) g/dL Hct 37.9 (36-46) % MCV 92.2 (80-100) fL MCH 31.2 (26-34) PG MCHC 33.8 (30-36) % RDW 18.4 H (11.6-14.8) % Plt Count 244 (150-400) X10^3/uL Neut % (Auto) 75.1 H (50-75) % Lymph % (Auto) 18.5 L (25-40) % [place] % (Auto) 4.0 (3-14) % Eos % (Auto) 0.8 L (2-4) % Baso % (Auto) 1.6 (0-2) % Neut # (Auto) 6000 (8075-5430) /uL Lymph # (Auto) 1500 (5942-9130) /uL [place] # (Auto) 300 (0-900) /uL Eos # (Auto) 100 (0-450) /uL Baso # (Auto) 100 (0-100) /uL Sodium 133 L (137-145) mmol/L Potassium 3.5 (3.4-5.1) mmol/L Chloride 99 (98-107) mmol/L Carbon Dioxide 26 (22-32) mmol/L BUN 43 H (7-17) mg/dL Creatinine 1.00 (0.52-1.04) mg/dL Estimated GFR 54.2 L (>60) mL/min BUN/Creatinine Ratio 43.0 H (6-22) Glucose 106 (80-110) mg/dL Calcium 8.1 L (8.4-10.2) mg/dL Total Bilirubin 1.2 (0.2-1.3) mg/dL AST 31 (14-36) IU/L ALT 10 (9-52) IU/L Alkaline Phosphatase 88 (38-126) U/L Ammonia < 9.0 L (9-30) umol/L Total Creatine Kinase (30-135) U/L CK-MB (CK-2) CK-MB (CK-2) Rel Index Troponin I (0.01-0.034) ng/mL B-Natriuretic Peptide (<100) Total Protein 6.4 (6.3-8.2) g/dL Albumin 2.6 L (3.5-5.0) g/dL Globulin 3.8 (1.7-4.1) g/dL Albumin/Globulin Ratio 0.7 L (1.0-2.8) 08/01/19 08/01/19 Range/Units 15:14 15:14 WBC (4.5-11.0) X10^3/uL RBC (4.0-5.2) X10^6/uL Hgb (12.0-16.0) g/dL Hct (36-46) % MCV (80-100) fL MCH (26-34) PG MCHC (30-36) % RDW (11.6-14.8) % Plt Count (150-400) X10^3/uL Neut % (Auto) (50-75) % Lymph % (Auto) (25-40) % [place] % (Auto) (3-14) % Eos % (Auto) (2-4) % Baso % (Auto) (0-2) % Neut # (Auto) (4156-7724) /uL Lymph # (Auto) (1402-4857) /uL [place] # (Auto) (0-900) /uL Eos # (Auto) (0-450) /uL Baso # (Auto) (0-100) /uL Sodium (137-145) mmol/L Potassium (3.4-5.1) mmol/L Chloride (98-107) mmol/L Carbon Dioxide (22-32) mmol/L BUN (7-17) mg/dL Creatinine (0.52-1.04) mg/dL Estimated GFR (>60) mL/min BUN/Creatinine Ratio (6-22) Glucose (80-110) mg/dL Calcium (8.4-10.2) mg/dL Total Bilirubin (0.2-1.3) mg/dL AST (14-36) IU/L ALT (9-52) IU/L Alkaline Phosphatase (38-126) U/L Ammonia (9-30) umol/L Total Creatine Kinase < 20 L (30-135) U/L CK-MB (CK-2) TNP CK-MB (CK-2) Rel Index TNP Troponin I < 0.012 (0.01-0.034) ng/mL B-Natriuretic Peptide 173 H (<100) Total Protein (6.3-8.2) g/dL Albumin (3.5-5.0) g/dL Globulin (1.7-4.1) g/dL Albumin/Globulin Ratio (1.0-2.8) Imaging Data Chest x-ray: Radiologist's impression: PROCEDURE: XR CHEST 1V INDICATIONS: altered mental status TECHNIQUE: One view of the chest was acquired. COMPARISON: [facility], , XR CHEST 2V, 03/16/2019, 11:47. FINDINGS: Surgical changes and devices: None. Lungs and pleura: The aeration of the lungs is similar to the previous exam with elevation of the right diaphragm and blunting of the right costophrenic angle. A vague increased density is identified layering along the right lung base. The left lung appears to be well aerated. No pneumothorax is appreciated bilaterally. Mediastinum: Mediastinal contours appear normal. Heart probably is normal in size. Bones and chest wall: No suspicious bony lesions. Overlying soft tissues appear unremarkable. IMPRESSION: Small to moderate-sized right-sided pleural effusion with associated atelectasis. Superimposed pneumonia is difficult to exclude. Dictated by: Lee Estrada M.D. on 08/01/2019 at 14:23 Venous US: Radiologist's impression: PROCEDURE: US PERIPH VENOUS LOW EXTREM BI INDICATIONS: BILATERAL LEG SWELLING TECHNIQUE: Real-time imaging, as well as color and pulse Doppler interrogation, were performed of the deep veins of both legs from the inguinal ligament to the popliteal fossa. COMPARISON: None. FINDINGS: Right: The common femoral, femoral and popliteal veins are normally compressible, and free of intraluminal thrombus. Color and pulse Doppler demonstrate normal phasic intravascular flow. There is normal augmentation response to distal compression maneuver. Left: The common femoral, femoral and popliteal veins are normally compressible, and free of intraluminal thrombus. Color and pulse Doppler demonstrate normal phasic intravascular flow. There is normal augmentation response to distal compression maneuver. Other: Extensive subcutaneous edema is identified throughout the bilateral lower extremities. No drainable or loculated fluid collections are appreciated. IMPRESSION: No evidence of deep vein thrombosis of the bilateral lower extremities. Dictated by: Lee Estrada M.D. on 08/01/2019 at 15:43 ECG Data Attestation EKG: I personally reviewed and interpreted this ECG as follows: Prior ECG tracings: available for review Interpretation: Normal sinus rhythm rate 83 p.r. interval 169 QRS 86 QTC 447 PVCs noted no T-wave inversions no ST elevations for dog progression similar to EKG in December 2017 MDM Narrative Medical decision making narrative: Patient so only able to move her toes. She has no decreased sensation no sign of trauma no back pain. At this time I do no t suspect any sort of cauda equina syndrome. Her legs are extremely large which is likely causing her inability to move them. However she has no respiratory symptoms she has no abdominal pain or discomfort. She has a no x4 normal ammonia level. Unclear exactly what is causing her significant lower extremity edema but it is quite debilitating. She apparently was walking 1 month ago. I have discussed case with Dr. Carter who has reviewed the chart and decided to accept for liver failure. Inpatient. Discharge Plan Departure Patient Disposition: Admitted As Inpatient Clinical Impression: Bilateral lower extremity edema Acute liver failure Qualifiers: Hepatic coma status: without hepatic coma Qualified Code(s): K72.00 - Acute and subacute hepatic failure without coma Admit Date/Time: 08/01/19 19:07 Admit Provider: Daniela Carter
[2019-08-01 17:07] VITALS: BP 130/78; PULSE 83; RESP 19; O2SAT 97
[2019-08-01 19:54] VITALS: BMI 41.8
--- NOTE | 2019-08-01 20:05 | PM.HP.1 ---
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 PSHx: phacoemulsification and intra-ocular lens implant (left eye (11/21/2015) and right eye (12/04/2015), mammogram (09/24/2017) w/o evidence of malignancy, tonsillectomy, The patient is a 74-year-old female w/ above mentioned PMH was directed to the ED for further evaluation. Prior to arrival, patient was seen by [facility] for bilateral lower extremity weakness w/ associated extremity edema and ascites. Patient reports difficulty ambulating and for this reason has been bed-bound for the past 1 month. Patient is known to cirrhosis secondary to hepatitis C and associated complications of portal hypertension and gastroesophageal varices. There is no evidence of hepatic encephalopathy. Patient was supposed to follow up with a GI provider in [place]; however, has not done so to date. She is not on any antiviral therapy. Patient's liver disease was previously managed with a diuretic, furosemide 20 mg QD. Patient endorses decreased adherence with diuretic regimen, stating that she has not taken the diuretic for a number of weeks, but resumed 2 weeks ago in lieu of worsening anasarca. Endorses easy bruising. Patient denies headache, dizziness, lightheadedness, abdominal pain, nausea or vomiting. She reports good appetite. Denies change in cognition or somnolence/lethargy. Denies symptoms of risa bleeding. Patient denies alcohol use. Denies starting new medications. ED presentation and work-up VS (08/01 @ 1427)... T 97.8F BP 138/88 HR 94 RR 17 SpO2 92% (room air) GCS 15 WT 110 kg BMI 41.8 Labs (08/01 @ 1505) WBC 8.0, Hgb 12.8, Plt 244 Na 133, K 3.5, Cl 99, Ca 8.1, Alb 2.6, Glu 106, CO2 26, BUN 43, Cr 1.0, GFR 54 AST 31, ALT 10, Alk Phos 88, T. Bili 1.2 Ammonia < 9.0 CK < 20, Trop < 0.012, BNP 173 CXR (08/01). Small to moderate size right-sided pleural effusion with associated atelectasis. There is elevation of the right diaphragm and blunting of the right costophrenic angle. Superimposed pneumonia is difficult to exclude. U/S Venous, bilateral (08/01). No evidence of deep vein thrombosis of bilateral lower extremities. Extensive subcutaneous edema identified , no drainable or loculated fluid collections appreciated. Patient is being admitted for decompensated cirrhosis. Patient History Medical History (Updated 08/02/19 @ 01:14 by JOELLE Malone) Cirrhosis of liver with ascites (Acute) Hepatitis C (Acute) History of Clostridium difficile infection (Acute) Hypothyroid (Acute) Mammogram normal (Acute) Portal hypertension (Acute) Surgical History (Updated 08/02/19 @ 01:12 by JOELLE Malone) History of phacoemulsification of cataract of both eyes with intraocular lens implantation (Acute) History of tonsillectomy Family History Mother Alcohol abuse Social History household members: family Smoking Status: Never smoker alcohol intake: never Family & Social History Family History Mother Alcohol abuse Social History: household members family /son Safety & Behavioral: Feels Safe in Current Yes Environment Been Physically Hurt or No Threatened By a Person Suicidal Ideation Description None Suicide Plan Description No Plan Tobacco & Substance use: Smoking Status Never smoker alcohol intake Never alcohol intake frequency holiday/special occasion Substance Use Type Never Meds Home Medications and Allergies Home Medications Medication Instructions Recorded Confirmed Type levothyroxine 175 mcg PO DAILY 12/24/18 08/01/19 History furosemide 20 mg PO DAILY 08/01/19 08/01/19 History levothyroxine 25 mcg PO 2XW 08/01/19 08/01/19 History Allergies Allergy/AdvReac Type Severity Reaction Status Date / Time morphine Allergy Verified 08/01/19 14:27 Review of Systems Review of Systems ROS Unobtainable: All systems reviewed & are unremarkable except as noted in HPI and below Exam Vital Signs (past 8 hours): - 08/01/19 14:27 08/01/19 17:07 Temperature 97.8 F Pulse Rate 94 H 83 Respiratory Rate 17 19 Blood Pressure 138/88 Blood Pressure [Right Arm] 130/78 Pulse Oximetry 92 97 Oxygen Delivery Method Room Air Narrative Exam Narrative: Constitutional: NAD Neurologic: AOx3, no focal neurological deficits, no tremor or fasciculations, no facial asymmetry or unilateral weakness Psych: Anxious Head: NC, AT Eyes: PERRL, EOMI, no scleral icterus Ears: external ears normal, no otorrhea Nose: external nose normal, no rhinorrhea or epistaxis Throat: MMM, oropharynx w/o exudate Neck: no masses, lymphadenopathy, or JVD Chest / Respiratory: equal chest rise, unlabored respiratory effort, no dyspnea or tachypnea at rest, CTAB Heart / CV: S1S2, no murmur Abdomen / GI: Ascites, hepatomegaly, NT to palpation, + BS : no suprapubic tenderness Peripheral / Vascular: Significant bilateral, pitting lower extremity edema (involving thigh and extending below the knee to the foot); Sensation intact, by pedal pulses weak but palpable Musc: full ROM of upper extremities, diminished ROM of lower extremities (ie patient is unable to lift extremities and hold against gravity) Skin: Bilateral upper extremities with patches ecchymosis, there is a generalized change in hue but no overt jaundice Objective Labs Result Diagrams: 08/01/19 15:05 08/01/19 15:05 Labs: Laboratory Results - last 24 hr 08/01/19 08/01/19 08/01/19 15:05 15:05 15:05 WBC 8.0 RBC 4.10 Hgb 12.8 Hct 37.9 MCV 92.2 MCH 31.2 MCHC 33.8 RDW 18.4 H Plt Count 244 Neut % (Auto) 75.1 H Lymph % (Auto) 18.5 L [place] % (Auto) 4.0 Eos % (Auto) 0.8 L Baso % (Auto) 1.6 Neut # (Auto) 6000 Lymph # (Auto) 1500 [place] # (Auto) 300 Eos # (Auto) 100 Baso # (Auto) 100 Sodium 133 L Potassium 3.5 Chloride 99 Carbon Dioxide 26 BUN 43 H Creatinine 1.00 Estimated GFR 54.2 L BUN/Creatinine Ratio 43.0 H Glucose 106 Calcium 8.1 L Total Bilirubin 1.2 AST 31 ALT 10 Alkaline Phosphatase 88 Ammonia < 9.0 L Total Creatine Kinase CK-MB (CK-2) CK-MB (CK-2) Rel Index Troponin I B-Natriuretic Peptide Total Protein 6.4 Albumin 2.6 L Globulin 3.8 Albumin/Globulin Ratio 0.7 L 08/01/19 08/01/19 15:14 15:14 WBC RBC Hgb Hct MCV MCH MCHC RDW Plt Count Neut % (Auto) Lymph % (Auto) [place] % (Auto) Eos % (Auto) Baso % (Auto) Neut # (Auto) Lymph # (Auto) [place] # (Auto) Eos # (Auto) Baso # (Auto) Sodium Potassium Chloride Carbon Dioxide BUN Creatinine Estimated GFR BUN/Creatinine Ratio Glucose Calcium Total Bilirubin AST ALT Alkaline Phosphatase Ammonia Total Creatine Kinase < 20 L CK-MB (CK-2) TNP CK-MB (CK-2) Rel Index TNP Troponin I < 0.012 B-Natriuretic Peptide 173 H Total Protein Albumin Globulin Albumin/Globulin Ratio Assessment & Plan Assessment & Plan narrative: Patient is being admitted for decompensated cirrhosis with ascites. Decompensated hepatic cirrhosis w/ ascites, acute on chronic, present on admission, active Secondary to sub-optimal adherence to prescribed medical treatment (see HPI for details). Underlying Hep C. MELD Score 7, but adjusted to 22 in lieu of portal HTN. This is a standard meld exception. Pulmonary artery pressure of 35 mmHg (per echo 03/2019). Patient was supposed to follow up with GI, however has not done so. H/O varices. - tele monitoring, diuresing at risk for e-lyte derangements - give furosemide 80 mg IV, once, tonight - in am, 08/02, start diuretic regimen of lasix 40 mg daily and spironolactone 100 mg daily - monitor and correct electrolyte abnormalities - monitor renal function (h/o LANG) - 2 gm sodium restriction - sauceda catheter for prolonged immobility, active diuresis - no report of abdominal pain, fever, chills or altered mental status. Labs not indicative of infectious process. No indication of SIRS or sepsis. Low suspicion for SBP, will hold of on empiric therapy at this time. Right sided pleural effusion (moderate), acute, present on admission, active - Noted on both CXR, echo cardiogram on 04/13, and prior imaging, continue to monitor Diastolic heart failure, chronic condition, present on admisson, active/stable Echo 03/2019. LVEF 65-70%. Normal LV size. Hyperdynamic function. Severely dilated left atrium. Mild AV sclerosis. Mild mitral annular calcification. RVSP at least 35 mmHg. Hypothyroidism, chronic condition, present on admission, active - TSH - Resume [employer]GER levothyroxine regimen. Anxiety in acute stress reaction, present on admission, active - Lorazepam 0.5 mg PO x1 dose Code status reviewed with patient. Wishes to be full code. Designates her son as proxy decision maker. Home medications reviewed and reconciled accordingly VTE prophylaxis with SCDs. No heparin or other anticoagulation due to high risk of bleeding.
[2019-08-01 20:10] VITALS: BP 134/73; PULSE 85; RESP 16; TEMP 36.2; O2SAT 96
[2019-08-01 20:27] LABS: PTT Partial Thromboplastin Tim 33 SECONDS (26.4-36.2)
[2019-08-01 22:11] VITALS: O2SAT 95
[2019-08-01 22:17] LABS: Appearance Urine UA CLEAR; Bilirubin Urine UA NEGATIVE (NEGATIVE); Color Urine UA YELLOW; Glucose Urine UA NEGATIVE (Negative); Ketones Urine UA NEGATIVE (NEGATIVE); Leukocyte Esterase Urine UA NEGATIVE (NEGATIVE); Nitrite Urine UA NEGATIVE (Negative); Occult Blood Urine UA 3+ (Negative); Protein Urine UA 2+ (Negative); Urobilinogen Urine UA 0.2 E.U./dL (0.2)
[2019-08-01 22:39] LABS: Bacteria Urine Occasional (0-1); RBC Urine 5-10/HPF (0-5/HPF); Squamous Epithelial Cell Urine 0-1 /HPF (0-5/HPF); WBC Urine 1-5/HPF (0-5/HPF)
[2019-08-01 22:40] LABS: Culture Indicated Urine Cult Not Indicated
[2019-08-01] MEDS: FUROSEMIDE 40 MG TABLET PO (22:58)
[2019-08-01] MEDS: LORazepam 0.5 MG TABLET PO (22:59)
[2019-08-01] MEDS: FUROSEMIDE 100 MG/10 ML VIAL 80 MG IV (22:59)
[2019-08-02] VITALS (12 sets, daily range): BP systolic 111–129; BP diastolic 64–82; PULSE 85–124; RESP 16–18; TEMP 36.6–37.4; O2SAT 91–98
[2019-08-02] MEDS: LEVOTHYROXINE 75 MCG TABLET PO (07:32)
[2019-08-02] MEDS: LEVOTHYROXINE 100 MCG TABLET PO (07:34)
[2019-08-02 07:45] LABS: Add Manual Diff / Slide Review NO; Basophils Absolute Auto 0 /uL (0-100); Basophils Percent Auto 0.4 % (0-2); Eosinophils Absolute Auto 200 /uL (0-450); Eosinophils Percent Auto 2.1 % (2-4); Hematocrit 34.3 % (36-46); Hemoglobin 11.5 g/dL (12.0-16.0); Lymphocytes Absolute Auto 2500 /uL (1100-4500); Lymphocytes Percent Auto 26.8 % (25-40); Mean Corpuscular HGB Conc 33.5 % (30-36); Mean Corpuscular Volume 92.4 fL (80-100); Monocytes Absolute Auto 500 /uL (0-900); Monocytes Percent Auto 5.6 % (3-14); Neutrophils Absolute Auto 6000 /uL (1500-7000); Neutrophils Percent Auto 65.1 % (50-75); Platelet Count 225 X10^3/uL (150-400); Red Blood Cell Count 3.71 X10^6/uL (4.0-5.2); Red Cell Distribution Width 18.9 % (11.6-14.8); White Blood Cell Count 9.2 X10^3/uL (4.5-11.0)
[2019-08-02 07:59] LABS: Alanine Aminotransferase 17 IU/L (9-52); Albumin 2.1 g/dL (3.5-5.0); Albumin Globulin Ratio 0.7 (1.0-2.8); Alkaline Phosphatase 65 U/L (38-126); Aspartate Aminotransferase 25 IU/L (14-36); Blood Urea Nitrogen 45 mg/dL (7-17); Calcium 7.8 mg/dL (8.4-10.2); Carbon Dioxide 27 mmol/L (22-32); Chloride 100 mmol/L (98-107); Estimated Glomerular Filt Rate 54.2 mL/min (>60); Globulin 3.2 g/dL (1.7-4.1); Glucose 89 mg/dL (80-110); HEMOLYSIS < 15 (0-50); Potassium 3.3 mmol/L (3.4-5.1); Sodium 133 mmol/L (137-145); Total Protein 5.3 g/dL (6.3-8.2)
[2019-08-02 08:55] LABS: Free T4, Direct Thyroxine 1.91 ng/dL (0.78-2.19)
[2019-08-02] MEDS: SPIRONOLACTONE 50 MG TABLET 100 MG PO (09:16)
[2019-08-02] MEDS: SODIUM CHLORIDE 0.9% FLUSH 10 ML IV ×2 (09:17→20:06)
[2019-08-02] MEDS: FUROSEMIDE 40 MG TABLET PO (09:17)
--- NOTE | 2019-08-02 11:28 | PT.IIE ---
Current Diagnoses Secondary biliary cirrhosis (08/01/19) Surgical History (Last Updated 08/02/19 @ 01:12 by JOELLE Malone) History of phacoemulsification of cataract of both eyes with intraocular lens implantation (Acute) History of tonsillectomy Medical History (Last Updated 08/02/19 @ 01:14 by JOELLE Malone) Cirrhosis of liver with ascites (Acute) Hepatitis C (Acute) History of Clostridium difficile infection (Acute) Hypothyroid (Acute) Mammogram normal (Acute) Portal hypertension (Acute) Physical Therapy Inpatient Evaluation/Re-Eval M1 PT/OT-IP Prior Functional Status Start: 08/02/19 13:11 Freq: NEEDED Status: Active Protocol: Document 08/02/19 11:25 AB (Rec: 08/02/19 13:26 [id number]) Medical Review Prior Functional Status Medical History Reviewed Yes Communication able to make needs known Mobility and Gait pt stated that she has not gotten out of the bed for 1 month due to LE swelling. stated that she is independent with all mobilities and ambulation using 4WW a month ago. Social History Household Members family Living Arrangements House Number of Floors (Floors) 3 or More Floors Number of Stairs To Enter/Railing? pt lives in a daylight basement house. has 4 steps to enter with R rail ascending pt has ~ 10 steps with R rail to get to the kitchen but stated that she stays on main level and her family brings the food for her. Home Environment Standard Height Toilet,Walk in Shower Home Equipment Four Wheel Walker,Straight Cane,Manual Wheelchair,Raised Toilet Seat w/Armrests,Shower Seat with Backrest,Hand Held Shower Employment Status Retired M2 PT-IP Current Condition Start: 08/02/19 13:11 Freq: NEEDED Status: Active Protocol: Document 08/02/19 11:25 AB (Rec: 08/02/19 13:26 AB [id number]) Physical Therapy Current Condition Current Condition Evaluation Date 08/02/19 Treatment Diagnosis acute liver failure;ascites difficulty in walking Onset Date 08/01/19 Precautions Other Precautions falls M3 PT-IP Subjective Start: 08/02/19 13:11 Freq: NEEDED Status: Active Protocol: Document 08/02/19 11:25 AB (Rec: 08/02/19 13:26 [id number]) Subjective Physical Therapy Visit Type Type Initial Evaluation Visit Start Time 11:28 Visit Stop Time 12:17 Total Visit Minutes 49 Number of TRAINING AND DEVELOPMENT SPECIALIST Visits 0 Physical Therapy Visit Comments Patient Comments pt is hesistant with moving; educated and agreed to at least sit up on the bed. Therapy Pain Assessment Pain When Pain Assessed At Rest Location Left Ribs Scale Used pain scale not state Pain Management Techniques Re-positioning M4 PT-IP Mobility and Gait Start: 08/02/19 13:11 Freq: NEEDED Status: Active Protocol: Document 08/02/19 11:25 AB (Rec: 08/02/19 13:26 [id number]) PT-Bed Mobility Assessment Supine to Sit Supine to Sit Maximum Assistance,1 Person Assistance,Head of Bed Elevated,Bedrails Sit to Supine Sit to Supine Maximum Assistance,Total Assistance,2 Person Assistance ,Head of Bed Elevated Scooting Scooting to Edge of Bed Dependent PT-Transfer Assessment Sit to and From Stand Sit to and from Stand Total Assistance,2 Person Assistance,Use of Upper Extremities Comments Mobility Comments pt completed supine to sit max A and max cues with HOB elevated and use of bed rail. pt positioned on EOB total A and max cues. pt required min to mod A for maintaining sitting balance on EOB. pt tends to lean posteriorly and requires constant cues for posture and positioning. attempted sit to stand x 2 reps but pt unable to complete despite max A x 2 to total Ax 2 provided. pt unable to activated quads and straighten LE. assisted pt back in bed. required total A x 2 for sit to supine and positioning in bed. call light and table placed within reach. informed [facility] that pt is a mechanical lift transfer. Gait Assessment Comments Gait Comments unable at this time PT-Balance Assessment Sitting Balance and Reactions Static Sitting Balance Ability Fair Dynamic Sitting Balance Ability Poor Standing Balance and Reactions Static Standing Balance Ability Poor Dynamic Standing Balance Ability Poor Device Used FWW M5 PT-IP Objective Assessments Start: 08/02/19 13:11 Freq: NEEDED Status: Active Protocol: Document 08/02/19 11:25 AB (Rec: 08/02/19 13:26 [id number]) Orientation Orientation/Cognition Level of Alertness Alert Orientation Name,Place,Situation Safety Awareness Decreased Safety Awareness Memory Description Short Term Impaired,Music Artist Impaired Gross Range of Motion Lower Extremity ROM Assessment Within Functional Limits Strength Lower Extremity Strength Assessment Bilaterally Impaired Comments Strength Comments LLE: 3-/5 RLE: 2+/5 Sensation Assessment Sensation Gross Sensation Right LE Impaired,Left LE Impaired Light Touch Impaired Proprioception (Position) Impaired Sensation Description Numbness Comments Sensation Comments pt stated that she can only feels ~ 10 % on BLE compared to UE Muscle Tone Muscle Tone WNL Yes M6 PT-IP Treatment Start: 08/02/19 13:11 Freq: NEEDED Status: Active Protocol: Document 08/02/19 11:25 AB (Rec: 08/02/19 13:26 AB [id number]) Physical Therapy Treatment Education Education Provided Safety M7 PT-IP Assessment and Plan Start: 08/02/19 13:11 Freq: NEEDED Status: Active Protocol: Document 08/02/19 11:25 AB (Rec: 08/02/19 13:26 AB [id number]) PT Summary Assessment and Plan Potential Rehabilitation Potential Fair Status of Condition at Evaluation Evolving Summary Impairments Pain,ROM,Strength,Balance, Coordination,Sensation,Tone, Cognition,Bed Mobility, Transfers,Gait,Activity Tolerance Assessment Summary pt requiring 2 person max to total A and unable to tolerate much activity. pt also requires increase motivation to participate. pt will require SNF rehab to improve strength and function. Goals Bed Mobility Goal Minimal Assistance Transfer Goal Moderate Assistance,Front Wheeled Walker Gait Goal Moderate Assistance,Front Wheel Walker Gait Distance 50 Days to Meet Goals 10 Frequency of Treatment Frequency Of Treatment Once a Day Treatment Plan Physical Therapy Treatment Plan Bed Mobility Training,Transfer Training,Gait Training, Therapeutic Exercise,Balance Retraining,Discharge Planning, Hot or Cold Pack,Neuromuscular Re-ed,Coordination Retraining ,Manual Therapy Recommendations To Nursing Amount of Assist Needed Mechanical Lift Discharge Recommendations PT Discharge Recommendations SNF Rehab
--- NOTE | 2019-08-02 14:55 | OT.IP.EVAL ---
Current Diagnoses Secondary biliary cirrhosis (08/01/19) Past Medical History (Last Updated 08/02/19 @ 01:14 by JOELLE Malone) Cirrhosis of liver with ascites (Acute) Hepatitis C (Acute) History of Clostridium difficile infection (Acute) Hypothyroid (Acute) Mammogram normal (Acute) Portal hypertension (Acute) Surgical History (Last Updated 08/02/19 @ 01:12 by JOELLE Malone) History of phacoemulsification of cataract of both eyes with intraocular lens implantation (Acute) History of tonsillectomy Occupational Therapy Inpatient Evaluation/Re-Eval M1 PT/OT-IP Prior Functional Status Start: 08/02/19 13:11 Freq: NEEDED Status: Active Protocol: Document 08/02/19 14:55 RACHEL (Rec: 08/02/19 17:32 PJJohana [id number]) Medical Review Prior Functional Status Medical History Reviewed Yes Diet/Fluid Consistency Regular Communication WNL Mobility and Gait Pt states that she has not gotten out of the bed for 1 month due to severe LE swelling. She stated that she was independent with all mobilities and ambulation using 4WW until 1 month ago. No family here to confirm home situation. Activities of Daily Living and IADL's Pt states her daughter in law brings meals to her in bed and sets her up for grooming in bed. Daughter in law assists her with dressing in shirt only, changing incontinent brief in bed and with bed bath . Social History Household Members family Living Arrangements House Number of Floors (Floors) 3 or More Floors Number of Stairs To Enter/Railing? Pt lives in a daylight basement of her house. She has 4 steps to enter with R rail ascending Pt has ~ 10 steps with R rail to get to the kitchen but states that she stays on lower level and her family brings the food down to her. Home Environment Standard Height Toilet,Walk in Shower Home Equipment Four Wheel Walker,Straight Cane,Manual Wheelchair,Raised Toilet Seat w/Armrests,Shower Seat with Backrest,Hand Held Shower Employment Status Retired Additional Social History Comment Pt lives with son and daughter in law who do not work outside the home at present. They have 9 month old and 4 yr old children. M2 OT-IP Current Condition Start: 08/02/19 13:33 Freq: Status: Active Protocol: Document 08/02/19 14:55 PJM (Rec: 08/02/19 17:32 PJM [id number]) Occupational Therapy Current Condition Current Condition Evaluation Date 08/02/19 Treatment Diagnosis decr'd mobility, self care w/ dx of decompensated cirrhosis, ascites, Hep C+ Diagnosis Onset Date 08/01/19 Post Operative Precautions Other Precautions pressure sore on L buttock M3 OT- IP Subjective and Pain Start: 08/02/19 13:33 Freq: Status: Active Protocol: Document 08/02/19 14:55 PJM (Rec: 08/02/19 17:32 PJM [id number]) OT- Subjective Occupational Therapy Visit Type Type Initial Evaluation Visit Start Time 14:33 Visit Stop Time 14:55 Total Visit Minutes 22 Occupational Therapy Visit Comments Patient Comments Why are you here? Patient/Caregiver Goals to be able to walk OT Pain Assessment Pain When Pain Assessed After Treatment Pain Present Pain Present Denied Pain M4 OT- IP ADL's Start: 08/02/19 13:33 Freq: Status: Active Protocol: Document 08/02/19 14:55 PJM (Rec: 08/02/19 17:32 PJM [id number]) OT XDO-[id number]-[place] General Evaluation Self-Feeding Ability Independent Comments OT Self-Feeding Comments after set up in bed OT ADL-Grooming General Evaluation Grooming Ability Standby Assistance Areas Needing Assistance Face Washing Comments OT Grooming Comments after set up in bed OT ADL-Dressing General Eval Upper Body Dressing Ability Maximum Assistance Lower Body Dressing Ability Total Assistance Comments OT Dressing Comments severe BLE edema noted OT ADL-Toileting General Evaluation Toileting Ability Total Assistance Areas Needing Assistance Manage Clothing,Perform Perineal Hygiene Comments OT Toileting Comments pt incontinent of bowel and bladder OT ADL-Bathing Bathing Type Bathing Type Bed Bath General Evaluation Bathing Ability Total Assistance M5 OT- IP IADL's Start: 08/02/19 13:33 Freq: Status: Active Protocol: Document 08/02/19 14:55 PJM (Rec: 08/02/19 17:32 PJM [id number]) OT-Instrumental Activities of Daily Living Deficits IADL Deficits Identified Deficits Home Safety Awareness Awareness of Need for Assistance at Home Good Awareness Medication Management Medication Management Caregiver Administers Money Management Money Management Caregiver Provides Assistance Meal Preparation Meal Preparation Caregiver Provides Assist Bowling Ball Assembler Bowling Ball Assembler Caregiver Provides Assist Driving Driving Caregiver Provides Assist Driving Comments pt has only left house by ambulance recently M6 OT- IP Functional Cognition Start: 08/02/19 13:33 Freq: Status: Active Protocol: Document 08/02/19 14:55 PJM (Rec: 08/02/19 17:32 PJM [id number]) Cognitive Factors Limiting Selfcare Function Cognitive Ability Level of Alertness Alert Patient Orientation Name,Month,Date,Place, Situation Attention Span Ability Capable of Focused Attention Ability to Follow Commands Able to Follow One Step Commands Problem Solving Ability Needs Assist to Identify Solutions Cognitive Comments Cognitive Assessment Comments Pt appears to have decreased insight into current medical situation and has difficulty setting realistic goals. She also has decreased insight into how she will achieve her goal of being able to walk again. OT- Vision and Hearing OT- Hearing Assessment OT- Hearing Assessment WFL OT- Vision Assessment Visual Acuity WFL,Glasses For Reading M7 OT- IP Mobility and Balance Start: 08/02/19 13:33 Freq: Status: Active Protocol: Document 08/02/19 14:55 PJM (Rec: 08/02/19 17:32 PJM [id number]) OT-Transfer Assessment Comments Mobility Comments did not occur, see P.T. notes OT- Gait Assessment Comments Gait Ability Comments pt non ambulatory at present and has not ambulated for 1 month at home OT- Balance Assessment Sitting Balance and Reactions Static Sitting Balance Ability Poor Comments Other Balance Tests/Deviations/Treatment poor sitting balance per P.T. : notes M8 OT- IP Objective Assessments Start: 08/02/19 13:33 Freq: Status: Active Protocol: Document 08/02/19 14:55 PJM (Rec: 08/02/19 17:32 PJM [id number]) OT Gross Range of Motion Upper Extremity Range of Motion Assessment Right Impaired ROM Impairments R shoulder flexion limited to 90 degrees by stiffness, otherwise BUE's WFL OT Strength Upper Extremity Strength Assessment Bilaterally Impaired Hand Embossing Clerk Strength Hand Dominance Mixed Comments Strength Comments BUE's generally 4/5 throughout with no focal weakness noted, B shoulders NT due to pt's concern about arthritis pain but are at least 3/5 OT- Coordination Assessment Comments Coordination Comments BUE appear WFL for self care OT-Muscle Tone Assessment Muscle Tone WNL Yes OT Sensation Assessment Comments Summary Comments Pt denies deficits in BUE's Edema Edema Present Edema Comments severe BLE edema noted M9 OT- IP Assessment and Plan Start: 08/02/19 13:33 Freq: Status: Active Protocol: Document 08/02/19 14:55 PJM (Rec: 08/02/19 17:32 PJM [id number]) OT Summary Assessment and Plan Potential Rehabilitation Potential Fair Analytic Complexity at Evaluation Low Summary OT Impairments Strength,Balance,Functional Mobility,Dressing,Toileting, Bathing,Toilet Transfers, Shower Transfers Assessment Summary Low complexity OT assessment completed on this 74 yr old woman admitted with decompensated cirrhosis, ascites, Hep C+, possible PNA. Pt has been bedridden at home for past month and is severely deconditioned. Pt has significant performance deficits in bed mobility and sitting balance and currently requires ceiling lift for all transfers. She also has significant performance deficits in dressing, bathing and toileting. Recommend SNF at discharge due to current high care needs. Will provide OT services here to address the goals below. Goals Grooming Goal Standby Assistance Dressing Goal Moderate Assistance Bathing Goal Minimal Assistance Toilet Transfer Goal Moderate Assistance,Bedside Commode Patient/Caregiver Education Goal Demonstrate Energy Conservation and Pacing OT-Other Goals Dressing goal is min assist for upper body and max assist with lower body. Bathing goal is for seated upper body sponge bath in chair Days to Meet Goals 14 Frequency of Treatment Frequency Of Treatment Once a Day Treatment Plan OT Treatment Plan ADL Training,Functional Mobility,Patient/Family Education,Discharge Planning Discharge Recommendations OT Discharge Recommendations SNF Rehab Home Equipment Needs to be determined pending progress in next rehab setting
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
[2019-08-02] MEDS: POTASSIUM CHLORIDE 20 MEQ TAB 40 MEQ PO (16:27)
--- NOTE | 2019-08-02 21:36 | PC.NURSE ---
Pt has had 2 large thick liquid stools this shift. UO for evening shift is 100 mLs. LIP aware.
[2019-08-03] VITALS (14 sets, daily range): BP systolic 81–122; BP diastolic 37–74; PULSE 83–125; RESP 16–83; TEMP 36.6–38.5; O2SAT 93–98
[2019-08-03 03:13] LABS: Clostridium Difficile Tox PCR Positive for C. diff
[2019-08-03 05:25] LABS: Alanine Aminotransferase 17 IU/L (9-52); Albumin 1.9 g/dL (3.5-5.0); Albumin Globulin Ratio 0.7 (1.0-2.8); Alkaline Phosphatase 59 U/L (38-126); Aspartate Aminotransferase 20 IU/L (14-36); BUN Creatinine Ratio 40.9 (6-22); Bilirubin Total 0.8 mg/dL (0.2-1.3); Blood Urea Nitrogen 45 mg/dL (7-17); Calcium 7.5 mg/dL (8.4-10.2); Carbon Dioxide 25 mmol/L (22-32); Chloride 102 mmol/L (98-107); Estimated Glomerular Filt Rate 48.6 mL/min (>60); Globulin 2.8 g/dL (1.7-4.1); Glucose 106 mg/dL (80-110); HEMOLYSIS < 15 (0-50); Potassium 3.9 mmol/L (3.4-5.1); Sodium 132 mmol/L (137-145); Total Protein 4.7 g/dL (6.3-8.2)
[2019-08-03] MEDS: LEVOTHYROXINE 100 MCG TABLET 200 MCG PO (05:54)
[2019-08-03] MEDS: POTASSIUM CHLORIDE 20 MEQ TAB 40 MEQ PO (09:20)
[2019-08-03] MEDS: FUROSEMIDE 20 MG TABLET PO (09:22)
[2019-08-03] MEDS: VANCOMYCIN 125 MG CAPSULE PO (09:22)
[2019-08-03] MEDS: SPIRONOLACTONE 50 MG TABLET 100 MG PO (09:23)
[2019-08-03] MEDS: SODIUM CHLORIDE 0.9% FLUSH 10 ML IV ×3 (09:23→23:52)
--- NOTE | 2019-08-03 11:25 | PT.IPTN ---
Current Diagnoses Secondary biliary cirrhosis (08/01/19) Physical Therapy Treatment Note M2 PT-IP Current Condition Start: 08/02/19 13:11 Freq: NEEDED Status: Active Protocol: Document 08/02/19 11:25 AB (Rec: 08/02/19 13:26 AB [id number]) Physical Therapy Current Condition Current Condition Evaluation Date 08/02/19 Treatment Diagnosis acute liver failure;ascites difficulty in walking Onset Date 08/01/19 Precautions Other Precautions falls M3 PT-IP Subjective Start: 08/02/19 13:11 Freq: NEEDED Status: Active Protocol: Document 08/03/19 11:25 AB (Rec: 08/03/19 12:56 AB [id number]) Subjective Physical Therapy Visit Type Type Treatment Note Visit Start Time 11:25 Visit Stop Time 11:59 Total Visit Minutes 34 Number of DOCUMENTATION DESIGNER Visits 0 Physical Therapy Visit Comments Patient Comments pt agreeable to do PT but stated: I don't want to stand today Therapy Pain Assessment Pain Present Pain Present Pain Reported Location Left Ribs Scale Used pain scale not stated Description With Movement Pain Behaviors Holding Area M4 PT-IP Mobility and Gait Start: 08/02/19 13:11 Freq: NEEDED Status: Active Protocol: Document 08/03/19 11:25 AB (Rec: 08/03/19 12:56 AB [id number]) PT-Bed Mobility Assessment Supine to Sit Supine to Sit Maximum Assistance,2 Person Assistance,Head of Bed Elevated Sit to Supine Sit to Supine Total Assistance,2 Person Assistance Scooting Scooting to Edge of Bed Dependent Scooting Up and Down in Bed Dependent PT-Transfer Assessment Comments Mobility Comments pt completed supine to sit max A x 2 and max cues. pt assisted PT with sliding BLE towards EOB and leaning trunk forwards to sit up with HOB elevated. pt required total A to scoot to EOB. pt required initial mod A to maintain sitting balance on EOB. educated on COG and to reposition self as needed. pt was able to sit up with SBA after repositioning using BLE holding ton EOB. moved pt's hands on lap and pt was able to sit up SBA to CGA and cues for trunk control and posture. pt tends to lean backwards. completed seated weight shifting for trunk control activity requiring min to mod A and cues. pt requesting to lay back. educated pt on importance to sitting up longer. pt tolerated ~ 4 more minutes of sitting but has to lay back down. assisted with sit to supine total A x 2 and max cues. required total A for positioning in bed. call light and table placed within reach. M5 PT-IP Objective Assessments Start: 08/02/19 13:11 Freq: NEEDED Status: Active Protocol: Document 08/02/19 11:25 AB (Rec: 08/02/19 13:26 [id number]) Orientation Orientation/Cognition Level of Alertness Alert Orientation Name,Place,Situation Safety Awareness Decreased Safety Awareness Memory Description Short Term Impaired,Artificial Breeding Technician Impaired Gross Range of Motion Lower Extremity ROM Assessment Within Functional Limits Strength Lower Extremity Strength Assessment Bilaterally Impaired Comments Strength Comments LLE: 3-/5 RLE: 2+/5 Sensation Assessment Sensation Gross Sensation Right LE Impaired,Left LE Impaired Light Touch Impaired Proprioception (Position) Impaired Sensation Description Numbness Comments Sensation Comments pt stated that she can only feels ~ 10 % on BLE compared to UE Muscle Tone Muscle Tone WNL Yes M6 PT-IP Treatment Start: 08/02/19 13:11 Freq: NEEDED Status: Active Protocol: Document 08/02/19 11:25 AB (Rec: 08/02/19 13:26 [id number]) Physical Therapy Treatment Education Education Provided Safety M7 PT-IP Assessment and Plan Start: 08/02/19 13:11 Freq: NEEDED Status: Active Protocol: Document 08/03/19 11:25 AB (Rec: 08/03/19 12:56 AB [id number]) PT Summary Assessment and Plan Potential Rehabilitation Potential Fair Summary Impairments Pain,ROM,Strength,Balance, Coordination,Sensation,Tone, Cognition,Bed Mobility, Transfers,Gait,Activity Tolerance Progress Towards Goals Slow Progress due to Medical Issues,Slow Progress due to Activity Tolerance Assessment Summary pt continues to require max A x 2 to total A x 2. pt requires increase motivation during PT. pt will require SNF rehab to improve functional mobility. Goals Bed Mobility Goal Minimal Assistance Transfer Goal Moderate Assistance,Front Wheeled Walker Gait Goal Moderate Assistance,Front Wheel Walker Gait Distance 50 Days to Meet Goals 10 Frequency of Treatment Frequency Of Treatment Once a Day Treatment Plan Physical Therapy Treatment Plan Bed Mobility Training,Transfer Training,Gait Training, Therapeutic Exercise,Balance Retraining,Discharge Planning, Hot or Cold Pack,Neuromuscular Re-ed,Coordination Retraining ,Manual Therapy Recommendations To Nursing Amount of Assist Needed Mechanical Lift Discharge Recommendations PT Discharge Recommendations SNF Rehab
--- NOTE | 2019-08-03 11:33 | OT.IP.TRT ---
Current Diagnoses Secondary biliary cirrhosis (08/01/19) Occupational Therapy Treatment Note M2 OT-IP Current Condition Start: 08/02/19 13:33 Freq: Status: Active Protocol: Document 08/02/19 14:55 PJM (Rec: 08/02/19 17:32 PJ [id number]) Occupational Therapy Current Condition Current Condition Evaluation Date 08/02/19 Treatment Diagnosis decr'd mobility, self care w/ dx of decompensated cirrhosis, ascites, Hep C+ Diagnosis Onset Date 08/01/19 Post Operative Precautions Other Precautions pressure sore on L buttock M3 OT- IP Subjective and Pain Start: 08/02/19 13:33 Freq: Status: Active Protocol: Document 08/03/19 11:33 PJM (Rec: 08/03/19 12:04 PJ [id number]) OT- Subjective Occupational Therapy Visit Type Type Treatment Note Visit Start Time 11:05 Visit Stop Time 11:33 Total Visit Minutes 28 Occupational Therapy Visit Comments Patient Comments I am a nauseous. (pt declines nausea meds) Patient/Caregiver Goals to be able to walk and go home OT Pain Assessment Pain When Pain Assessed After Treatment Pain Present Pain Present Pain Reported Location Left Ribs Description Acute,Sharp,Stabbing Pain Behaviors Facial Grimacing,Guarding, Holding Area,Wincing Management Techniques Distraction,Re-positioning M4 OT- IP ADL's Start: 08/02/19 13:33 Freq: Status: Active Protocol: Document 08/03/19 11:33 PJM (Rec: 08/03/19 12:04 PJ [id number]) OT ADL-Grooming General Evaluation Grooming Ability Standby Assistance Areas Needing Assistance Retrieving/Set-up of Grooming Items,Face Washing Comments OT Grooming Comments after set up in bed OT ADL-Oral Care General Eval Oral Care Ability Standby Assistance Areas of Assistance Retrieving/Set-Up of Items Comments Oral Care Comments after set up in bed; fair thoroughness OT ADL-Toileting General Evaluation Toileting Ability Total Assistance Areas Needing Assistance Manage Clothing,Perform Perineal Hygiene Comments OT Toileting Comments 2 person assist needed for brief change M6 OT- IP Functional Cognition Start: 08/02/19 13:33 Freq: Status: Active Protocol: Document 08/02/19 14:55 PJM (Rec: 08/02/19 17:32 PJ [id number]) Cognitive Factors Limiting Selfcare Function Cognitive Ability Level of Alertness Alert Patient Orientation Name,Month,Date,Place, Situation Attention Span Ability Capable of Focused Attention Ability to Follow Commands Able to Follow One Step Commands Problem Solving Ability Needs Assist to Identify Solutions Cognitive Comments Cognitive Assessment Comments Pt appears to have decreased insight into current medical situation and difficulty setting realistic goals. Also has decreased insight into how she will achieve her goal of being able to walk again. M7 OT- IP Mobility and Balance Start: 08/02/19 13:33 Freq: Status: Active Protocol: Document 08/03/19 11:33 PJM (Rec: 08/03/19 12:04 [facility] [id number]) OT- Bed Mobility Assessment Rolling Type of Rolling Roll to Right,Roll to Left Level of Assistance Maximum Assistance,1 Person Assistance,Bed rails OT-Transfer Assessment Devices Transfer Assistive Devices Mechanical Lift Comments Mobility Comments worked on activation of hip and knee flexors to assist with rolling side to side in bed with use of B bed rails as needed for brief change OT- Gait Assessment Comments Gait Ability Comments non ambulatory for 1 month per pt report OT- Balance Assessment Sitting Balance and Reactions Static Sitting Balance Ability Fair Comments Other Balance Tests/Deviations/Treatment pt lies asymmetrically in bed : and resists coming to midline due to generalized discomfort , pt needs max assist to shift hips and shoulders to midline M8 OT- IP Objective Assessments Start: 08/02/19 13:33 Freq: Status: Active Protocol: Document 08/03/19 11:33 PJM (Rec: 08/03/19 12:04 [facility] [id number]) OT Gross Range of Motion Upper Extremity Range of Motion Assessment Right Impaired ROM Impairments Pt completed 10 reps of B shoulder flex with rolled towel against gravity. Pt needs mod verbal cues for pace and thoroughness. R shoulder flex limited to 90 deg by pain. OT- Coordination Assessment Comments Coordination Comments WFL for oral care set up M9 OT- IP Assessment and Plan Start: 08/02/19 13:33 Freq: Status: Active Protocol: Document 08/03/19 11:33 PJM (Rec: 08/03/19 12:04 [facility] [id number]) OT Summary Assessment and Plan Potential Rehabilitation Potential Fair Summary Progress Towards Goals Slow Progress due to Medical Issues,Slow Progress due to Activity Tolerance Assessment Summary Pt needs encouragement to increase participation in bed mobility instead of just waiting for total assist. Pt was able to activate hip and knee flexors and dorsiflex B feet. L rib pain noted when rolling to left. Dr Zuleta aware. Pt needs max assist to come to midline in bed and tends to lie for long periods leaning heavily towards right. Pt participating in BUE antigravity exercises with fair effort. Pt severely deconditioned from being bedridden for 1 month at home. Recommend SNF at d/c for further rehab services. Goals Grooming Goal Standby Assistance Dressing Goal Moderate Assistance Bathing Goal Minimal Assistance Toilet Transfer Goal Moderate Assistance,Bedside Commode Patient/Caregiver Education Goal Demonstrate Energy Conservation and Pacing OT-Other Goals Dressing goal is min assist for upper body and max assist with lower body. Bathing goal is for seated upper body sponge bath in chair Days to Meet Goals 14 Frequency of Treatment Frequency Of Treatment Once a Day Treatment Plan OT Treatment Plan ADL Training,Functional Mobility,Patient/Family Education,Discharge Planning Discharge Recommendations OT Discharge Recommendations SNF Rehab Home Equipment Needs to be determined pending progress in next rehab setting
--- NOTE | 2019-08-03 12:09 | PC.NURSE ---
AM NOTE - pt is alert, incont liq brown stool, destiney care performed, allevyn buttock cdi, has small opening above dsg cleaned, repositioned, denies pain unless l upper torso palpated, declined any medication, in and aware, also informed low UOP overnight, sauceda w/ko urine, mariza edema, phys therapy in later am and pt mobilizated to dangle position, ret to bed until an overhead sling is delivered by materials.
--- NOTE | 2019-08-03 12:36 | PM.PN.1 ---
Subjective Subjective Date Patient Seen: 08/03/19 Interval history: The patient is a 74-year-old female with chronic liver to reduce disease secondary to cirrhosis this who developed a 6 loose stools over the past 24 hours. It her stool cultures were positive for C difficile. 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 She has previously been treated for C diff. She now has had 6 stools and is symptomatic. The patient is still fairly weak. She has lower extremity edema. Despite diuresis with Lasix her urine output has dropped off. She is unable to ambulate independently. She is a maximum 2 person assist and has required a whole year lift as of yesterday. It in addition the patient complains of pain over the left rib she feels that it was bruised when moved by relative. Exam Vital Signs (past 8 hours): - 08/03/19 05:00 08/03/19 08:00 08/03/19 12:00 Temperature 99 F 99.1 F Pulse Rate 125 H 118 H Respiratory Rate 20 18 Blood Pressure 111/66 119/74 Pulse Oximetry 93 94 94 08/03/19 12:26 Temperature 99.4 F Pulse Rate 87 Respiratory Rate 20 Blood Pressure 122/74 Pulse Oximetry 95 Oxygen Delivery Method Room Air Oxygen Flow Rate 0 Narrative Exam Narrative: Ill-appearing elderly female Lungs: Decreased breath sounds bilaterally Cardiac exam: Regular rate and rhythm normal S1-S2 Abdomen: Soft nontender nontender, mild tenderness in the left upper quadrant under the rib cage positive fluid no hepatomegaly Lower extremity pitting edema bilateral Skin: Jaundice, spider angiomata, mild scleral icterus Objective Labs Result Diagrams: 08/02/19 07:25 08/03/19 04:55 Labs: Laboratory Results - last 24 hr 08/03/19 08/03/19 01:16 04:55 Sodium 132 L Potassium 3.9 Chloride 102 Carbon Dioxide 25 BUN 45 H Creatinine 1.10 H Estimated GFR 48.6 L BUN/Creatinine Ratio 40.9 H Glucose 106 Calcium 7.5 L Total Bilirubin 0.8 AST 20 ALT 17 Alkaline Phosphatase 59 Total Protein 4.7 L Albumin 1.9 L Globulin 2.8 Albumin/Globulin Ratio 0.7 L C. difficile Tox (PCR) Positive for c. diff H Assessment & Plan Assessment & Plan narrative: 1. 74-year-old female presented to the hospital with weakness, ascites, lower extremity edema. As of last night the patient is positive for C diff. She has a history of C diff in the past. She was started on vancomycin 125 Q 6. However as this is her 2nd or 3rd treatment would try rifaximin 550 b.i.d. if obtainable. We will not repeat her C diff during her hospital stay. Patient will complete a full course of therapy. 2. End-stage liver disease, with associated hypoalbuminemia, ascites, and peripheral edema. Will increase her Lasix to 80 IV x1. Will give her 50 g of albumin as well. 3. Hypothyroidism, patient's TSH is elevated at 16.5. It is unclear whether she has been taking her thyroid as an outpatient. Will start her on low-dose item L at this time. 4. Hyponatremia, secondary to end-stage liver disease, will continue to monitor 5. Chronic kidney disease, stage III, will continue to monitor closely. Albumin should help with this as well 6. Congestive heart failure, present on admission, with preserved systolic function. Will continue diuresis as above.
[2019-08-03] MEDS: LIOTHYRONINE 5 MCG TABLET PO (13:18)
[2019-08-03] MEDS: RIFAXIMIN 550 MG TABLET PO ×2 (13:24→20:29)
[2019-08-03] MEDS: ALBUMIN HUMAN 25 GM/100 ML VIAL IV (14:11)
[2019-08-03] MEDS: ACETAMINOPHEN 325 MG TABLET 650 MG PO (14:43)
--- NOTE | 2019-08-03 15:12 | CM.DANOTE ---
DCP/Assessment: Reviewed chart. Patient admitted [facility] under [facility] status with bilateral leg weakness. PCP listed is Ruthie Reynoso. Primary payor is 1)[facility]. Met with patient in the afternoon on 08-02-19 to introduce role and discuss d/c planning. Patient alert and oriented during visit. Patient reports that she resides with her family in [place]. Patient reports that she wants to go home at time of d/c. Therapy evaluations completed and SNF recommended. Met again with patient and daughter/Sonya. Sonya has 2 small children with her and could not enter patient's room due to C-Diff precautions. Sonya reports that she is primary caregiver and she does not believe that she can manage patient at home in her current condition. Patient requiring 2 max assist. Patient reluctant but agreeable to short SNF stay. Notified patient that authorization would need to be obtained from [facility]. Patient's first SNF choice is [facility]. Patient reports that she has been there in the past. Patient hopes for it to be short stay. Daughter in agreement for patient to return home once she can transfer to/from bed. Patient most likely will benefit from home health after SNF. First choice in agencies is [facility]. [facility] aware. P: [facility] evaluating for short SNF stay. Hopeful that [facility] will cover under OBS status. DAISHA Kay
[2019-08-03] MEDS: ONDANSETRON 4 MG/2 ML INJ IV (21:10)
[2019-08-03] MEDS: FUROSEMIDE 40 MG/4 ML VIAL IV (23:51)
[2019-08-04] VITALS (9 sets, daily range): BP systolic 104–126; BP diastolic 60–69; PULSE 78–120; RESP 18; TEMP 36.9–37.6; O2SAT 92–94
[2019-08-04 05:37] LABS: Add Manual Diff / Slide Review NO; Basophils Absolute Auto 100 /uL (0-100); Basophils Percent Auto 0.7 % (0-2); Eosinophils Absolute Auto 200 /uL (0-450); Eosinophils Percent Auto 2.1 % (2-4); Hematocrit 29.1 % (36-46); Hemoglobin 9.9 g/dL (12.0-16.0); Lymphocytes Absolute Auto 2800 /uL (1100-4500); Lymphocytes Percent Auto 37.2 % (25-40); Mean Corpuscular HGB Conc 33.9 % (30-36); Mean Corpuscular Hemoglobin 31.5 PG (26-34); Mean Corpuscular Volume 92.9 fL (80-100); Monocytes Absolute Auto 700 /uL (0-900); Monocytes Percent Auto 9.5 % (3-14); Neutrophils Absolute Auto 3800 /uL (1500-7000); Neutrophils Percent Auto 50.5 % (50-75); Platelet Count 184 X10^3/uL (150-400); Red Blood Cell Count 3.14 X10^6/uL (4.0-5.2); Red Cell Distribution Width 18.3 % (11.6-14.8); White Blood Cell Count 7.4 X10^3/uL (4.5-11.0)
[2019-08-04 05:46] LABS: Alanine Aminotransferase 15 IU/L (9-52); Albumin Globulin Ratio 0.7 (1.0-2.8); Alkaline Phosphatase 61 U/L (38-126); Aspartate Aminotransferase 21 IU/L (14-36); BUN Creatinine Ratio 36.7 (6-22); Bilirubin Total 0.7 mg/dL (0.2-1.3); Blood Urea Nitrogen 44 mg/dL (7-17); Calcium 7.7 mg/dL (8.4-10.2); Carbon Dioxide 27 mmol/L (22-32); Chloride 99 mmol/L (98-107); Estimated Glomerular Filt Rate 43.9 mL/min (>60); Globulin 2.9 g/dL (1.7-4.1); Glucose 93 mg/dL (80-110); HEMOLYSIS < 15 (0-50); Potassium 4.2 mmol/L (3.4-5.1); Sodium 131 mmol/L (137-145); Total Protein 4.9 g/dL (6.3-8.2)
[2019-08-04] MEDS: POTASSIUM CHLORIDE 20 MEQ TAB 40 MEQ PO (09:14)
[2019-08-04] MEDS: LIOTHYRONINE 5 MCG TABLET PO (09:14)
[2019-08-04] MEDS: ACETAMINOPHEN 325 MG TABLET 650 MG PO (09:14)
[2019-08-04] MEDS: SPIRONOLACTONE 50 MG TABLET 100 MG PO (09:14)
[2019-08-04] MEDS: RIFAXIMIN 550 MG TABLET PO (09:14)
[2019-08-04] MEDS: SODIUM CHLORIDE 0.9% FLUSH 10 ML IV (09:14)
--- NOTE | 2019-08-04 10:34 | OT.IP.TRT ---
Current Diagnoses Secondary biliary cirrhosis (08/01/19) Occupational Therapy Treatment Note M2 OT-IP Current Condition Start: 08/02/19 13:33 Freq: Status: Active Protocol: Document 08/02/19 14:55 PJM (Rec: 08/02/19 17:32 PJM [id number]) Occupational Therapy Current Condition Current Condition Evaluation Date 08/02/19 Treatment Diagnosis decr'd mobility, self care w/ dx of decompensated cirrhosis, ascites, Hep C+ Diagnosis Onset Date 08/01/19 Post Operative Precautions Other Precautions pressure sore on L buttock M3 OT- IP Subjective and Pain Start: 08/02/19 13:33 Freq: Status: Active Protocol: Document 08/04/19 10:34 PJM (Rec: 08/04/19 14:29 PJM [email or web address]) OT- Subjective Occupational Therapy Visit Type Type Treatment Note Visit Start Time 10:10 Visit Stop Time 10:34 Total Visit Minutes 24 Notes co tx with P.T. as 2 persons needed for safe mobility Occupational Therapy Visit Comments Patient Comments I have been working on my core and trying to sit up straighter in the bed. Patient/Caregiver Goals to go home OT Pain Assessment Pain When Pain Assessed After Treatment Pain Present Pain Present Denied Pain M7 OT- IP Mobility and Balance Start: 08/02/19 13:33 Freq: Status: Active Protocol: Document 08/04/19 10:34 PJM (Rec: 08/04/19 14:29 PJM [id number]) OT- Bed Mobility Assessment Rolling Type of Rolling Roll to Left Level of Assistance Moderate Assistance,1 Person Assistance Supine to Sit Supine to Sit Assist Minimal Assistance,Maximum Assistance,2 Person Assistance ,Head of Bed Elevated OT-Transfer Assessment Technique Transfer Technique Mechanical Lift Comments Mobility Comments Pt needs max assist of one and min assist of second for supine to EOB with HOB fully elevated. Pt transferred to recliner with ceiling lift for bed change out and then back to new bed with ceiling lift. OT- Gait Assessment Comments Gait Ability Comments pt unable to ambulate at present due to severe deconditioning OT- Balance Assessment Sitting Balance and Reactions Static Sitting Balance Ability Fair Dynamic Sitting Balance Ability Fair Comments Other Balance Tests/Deviations/Treatment Pt tolerating longer period : sitting EOB today (6-7 min today) and participating in dynamic weight shift tasks to increased sitting balance. SHe still tends to lean posteriorly when sitting EOB M OT Summary Assessment and Plan Potential Rehabilitation Potential Fair Summary OT Impairments Strength,Balance,Functional Mobility,Dressing,Toileting, Bathing,Toilet Transfers, Shower Transfers Progress Towards Goals Slow Progress due to Medical Issues,Slow Progress due to Activity Tolerance Assessment Summary Pt is making slow daily progress with increasing participation in rolling and moving BLE's in bed today. Sitting balance and tolerance also improved. Pt needs mechanical lift for safety for all transfers at present. Pt not safe to return home due to current high care needs. Recommend SNF at d/c for further rehab services. Goals Grooming Goal Standby Assistance Dressing Goal Moderate Assistance Bathing Goal Minimal Assistance Toilet Transfer Goal Moderate Assistance,Bedside Commode Patient/Caregiver Education Goal Demonstrate Energy Conservation and Pacing OT-Other Goals Dressing goal is min assist for upper body and max assist with lower body. Bathing goal is for seated upper body sponge bath in chair Days to Meet Goals 13 Frequency of Treatment Frequency Of Treatment Once a Day Treatment Plan OT Treatment Plan ADL Training,Functional Mobility,Patient/Family Education,Discharge Planning Discharge Recommendations OT Discharge Recommendations SNF Rehab Home Equipment Needs to be determined pending progress in next rehab setting
--- NOTE | 2019-08-04 11:42 | PC.NURSE ---
Addendum entered by Cyndi Wade R.N. 08/04/19 15:41: TSF - per discussion with Dr. Zuleta, pt komal quintanilla at 1300, had output of 85ml, pt to tsf to [facility], brief changed prior to transfer, using [place] lift, to [facility], paperwork provided and report called to RN at [facility]. Original Note: AM NOTE - pt is awake, positioned upright for breakfast, some discomfort torso area w/hx fall, temp 99.6, admin 650mg po tylenol this am, later PT in and via ewelina tsf to chair, ret to a new bed and pt incont small qty liq stool, destiney care performed, removed soiled allevyn and x2 small blister openings cleaned, barrier cream applied, left open to air, pt has very dry, flaky, itchy skin mariza leg, advised to not scratch, cleaned with washcloth and lotion applied.
[2019-08-04] MEDS: FUROSEMIDE 40 MG/4 ML VIAL IV (13:13)
--- NOTE | 2019-08-04 13:15 | PT.IPTN ---
Current Diagnoses Secondary biliary cirrhosis (08/01/19) Physical Therapy Treatment Note M2 PT-IP Current Condition Start: 08/02/19 13:11 Freq: NEEDED Status: Active Protocol: Document 08/02/19 11:25 AB (Rec: 08/02/19 13:26 AB [id number]) Physical Therapy Current Condition Current Condition Evaluation Date 08/02/19 Treatment Diagnosis acute liver failure;ascites difficulty in walking Onset Date 08/01/19 Precautions Other Precautions falls M3 PT-IP Subjective Start: 08/02/19 13:11 Freq: NEEDED Status: Active Protocol: Document 08/04/19 10:10 HH (Rec: 08/04/19 13:15 HH [id number]) Subjective Physical Therapy Visit Type Type Treatment Note Visit Start Time 10:10 Visit Stop Time 10:34 Total Visit Minutes 24 Notes co-tx with OT freda due to her limited mobility. Number of TICKET BROKER Visits 0 Physical Therapy Visit Comments Patient Comments pt agreeable to do PT and attempt ewelina to chair Therapy Pain Assessment Pain When Pain Assessed At Rest M4 PT-IP Mobility and Gait Start: 08/02/19 13:11 Freq: NEEDED Status: Active Protocol: Document 08/04/19 10:10 HH (Rec: 08/04/19 13:15 HH [id number]) PT-Bed Mobility Assessment Rolling Type of Rolling Bilateral Level of Assist Moderate Assistance,1 Person Assistance Supine to Sit Supine to Sit Maximum Assistance,2 Person Assistance,Head of Bed Elevated,Bedrails Sit to Supine Sit to Supine Total Assistance,2 Person Assistance PT-Transfer Assessment Sit to and From Stand Sit to and from Stand Total Assistance,2 Person Assistance,Use of Upper Extremities Comments Mobility Comments Pt needed assistance to bend her knees for rolling. She was was able to roll bilaterally with min A to place ewelina sling underneat. She then sat up from elevated HOB with max A x 2. She was able to sit ~6- 7 mins today with B UE support on bed. She did have posterior lean but able to recover by using her UEs. She did sit ~20s x 3 w/o support. Then followed by ewelina transfer to bedside chair to replace her small bed. She then transferred back to her new bed with 2PA. Gait Assessment Comments Gait Comments unable at this time PT-Balance Assessment Sitting Balance and Reactions Static Sitting Balance Ability Good Dynamic Sitting Balance Ability Fair M5 PT-IP Objective Assessments Start: 08/02/19 13:11 Freq: NEEDED Status: Active Protocol: Document 08/02/19 11:25 AB (Rec: 08/02/19 13:26 AB [id number]) Orientation Orientation/Cognition Level of Alertness Alert Orientation Name,Place,Situation Safety Awareness Decreased Safety Awareness Memory Description Short Term Impaired,[facility] Impaired Gross Range of Motion Lower Extremity ROM Assessment Within Functional Limits Strength Lower Extremity Strength Assessment Bilaterally Impaired Comments Strength Comments LLE: 3-/5 RLE: 2+/5 Sensation Assessment Sensation Gross Sensation Right LE Impaired,Left LE Impaired Light Touch Impaired Proprioception (Position) Impaired Sensation Description Numbness Comments Sensation Comments pt stated that she can only feels ~ 10 % on BLE compared to UE Muscle Tone Muscle Tone WNL Yes M6 PT-IP Treatment Start: 08/02/19 13:11 Freq: NEEDED Status: Active Protocol: Document 08/02/19 11:25 AB (Rec: 08/02/19 13:26 AB [id number]) Physical Therapy Treatment Education Education Provided Safety M7 PT-IP Assessment and Plan Start: 08/02/19 13:11 Freq: NEEDED Status: Active Protocol: Document 08/04/19 10:10 HH (Rec: 08/04/19 13:15 HH [id number]) PT Summary Assessment and Plan Potential Rehabilitation Potential Fair Summary Impairments Pain,ROM,Strength,Balance, Coordination,Sensation,Tone, Cognition,Bed Mobility, Transfers,Gait,Activity Tolerance Progress Towards Goals Slow Progress due to Medical Issues,Slow Progress due to Activity Tolerance Assessment Summary Pt progressed with improved sitting balance and endurance up to 6-7 mins today. She still has significant difficulty moving her LEs during bed mobility. Recommended pt to practice supine knee extension at rest. Goals Bed Mobility Goal Minimal Assistance Transfer Goal Moderate Assistance,Front Wheeled Walker Gait Goal Moderate Assistance,Front Wheel Walker Gait Distance 50 Days to Meet Goals 10 Frequency of Treatment Frequency Of Treatment Once a Day Treatment Plan Physical Therapy Treatment Plan Bed Mobility Training,Transfer Training,Gait Training, Therapeutic Exercise,Balance Retraining,Discharge Planning, Hot or Cold Pack,Neuromuscular Re-ed,Coordination Retraining ,Manual Therapy Recommendations To Nursing Amount of Assist Needed Mechanical Lift Discharge Recommendations PT Discharge Recommendations SNF Rehab
--- NOTE | 2019-08-04 15:36 | CM.DPNOTE ---
DC Note: Reviewed chart. Spoke w/ April at [facility] who explained she had started the auth through [facility] yesterday and the auth had been secured today. April aware that pt has chronic Cdiff and will be DC on po abx for 10 days. Met w/pt, she remained agreeable to DCP to [facility] today w/auth in place. IMM reviewed and verbal agreement obtained at bedside. Pt denies the need for this SENIOR ADULTS DIRECTOR to call family to update. Transportation: Pt has been ewelina lift here and has not been up out of bed x 1 month (per therapy team) question is BLS vs cabulance for safe transport? Therapy team feels pt could safely transport across the street to [facility] via w/c van, ewelina lift into w/c same at [facility] into bed. Reviewed this w/pt and explained there would likely be an out of pocket expense for BLS since it did not meet medical criteria and pt asked for cabulance transport. P/u scheduled for approx 1500, RN and pt made aware. Jennifer [facility] faxed completed SHANTELLE MENARD ppk to include signed med list. P: DC to [facility] via cabulance today. DAISHA Garcia
--- NOTE | 2019-08-04 19:18 | PM.DS.1 ---
History of Present Illness History of Present Illness Date Patient Seen: 08/04/19 Chief complaint: Leg weakness Narrative: PMHx: hypothyroidism, morbid obesity (BMI 41.9), c. diff carrier, nuclear cataract (left eye), open angle glaucoma, floppy iris syndrome, hepatitis C, cirrhosis, portal HTN, and h/o of sacral decubitus ulcer. PSHx: phacoemulsification and intra-ocular lens implant (left eye (11/21/2015) and right eye (12/04/2015), mammogram (09/24/2017) w/o evidence of malignancy, tonsillectomy, The patient is a 74-year-old female w/ above mentioned PMH was directed to the ED for further evaluation. Prior to arrival, patient was seen by [facility] for bilateral lower extremity weakness w/ associated extremity edema and ascites. Patient reports difficulty ambulating and for this reason has been bed-bound for the past 1 month. Patient is known to cirrhosis secondary to hepatitis C and associated complications of portal hypertension and gastroesophageal varices. There is no evidence of hepatic encephalopathy. Patient was supposed to follow up with a GI provider in [place]; however, has not done so to date. She is not on any antiviral therapy. Patient's liver disease was previously managed with a diuretic, furosemide 20 mg QD. Patient endorses decreased adherence with diuretic regimen, stating that she has not taken the diuretic for a number of weeks, but resumed 2 weeks ago in lieu of worsening anasarca. Endorses easy bruising. Patient denies headache, dizziness, lightheadedness, abdominal pain, nausea or vomiting. She reports good appetite. Denies change in cognition or somnolence/lethargy. Denies symptoms of risa bleeding. Patient denies alcohol use. Denies starting new medications. Discharge Providers Provider Date of admission: 08/01/19 19:07 Discharge Date: 08/04/19 Primary care physician: Ruthie Reynoso MD Consults: 08/01/19 20:13 Consult to Occupational Therapy Evaluate & Treat Comment: generalized weakness, difficulty performing ADLs Physician Instructions: Evaluate and treat Consult to Physical Therapy Evaluate & Treat Comment: generalized weakness, difficulty ambulating Physician Instructions: Evaluate and Treat 08/01/19 20:14 Consult to Parachutist/Combatant Diver Qualified Routine Comment: D/C planning to SNF Discharge provider: Fiorella Zuleta MD Summary Hospital Course Discharge Diagnosis: 1. 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 Portal hypertension 3. Hepatic encephalopathy 4. Hypothyroid 5. Chronic carrier C diff, now with C difficile colitis 6. Ascites 7. Sacral decubitus ulcer 8. Hyponatremia 9. Chronic kidney disease stage III 10. Anemia, chronic Hospital Course: The patient is a 74-year-old female with a history of hepatitis-C, cirrhosis, chronic liver disease who presented to the hospital with generalized weakness. Patient was found to have significant anasarca,, ascites, edema. She was placed on IV Lasix with improvement of her swelling. She was seen by Physical therapy and Occupational therapy. She was very weak and required a Meng lift. Patient developed diarrhea and has sick stools within 24 hours. Stool cultures were positive for C diff. Of note the patient is a chronic C diff carrier. However given the number of diarrheal stools she was started on rifaximin 550 b.i.d. with some improvement in the diarrhea. In addition she was treated for her hypothyroidism. Patient had improvement in her mental status as well as her swelling. She was deemed appropriate for discharge and arrangements were made for her to be discharged to the retirement unit for ongoing rehabilitation. Status at Discharge Cognitive/behavioral status at discharge: oriented Functional status at discharge: bed bound Overall status at discharge: patient is not back to baseline Time Spent with Patient Time spent: Less than 30 minutes Exam Vital Signs (past 8 hours): - 08/04/19 12:00 08/04/19 13:00 Temperature 99.3 F Pulse Rate 78 Respiratory Rate 18 Blood Pressure 118/60 Pulse Oximetry 93 94 Oxygen Delivery Method Room Air Oxygen Flow Rate 0 Narrative Exam Narrative: Chronically ill-appearing elderly female Lungs: Decreased breath sounds bilaterally Cardiac exam: Regular rate rhythm normal S1-S2 Abdomen: Soft nontender nondistended positive fluid Extremities: 1 to 2+ pitting edema bilaterally Skin exam: The patient is Bc with multiple spider angiomas Objective Labs Result Diagrams: 08/04/19 05:10 08/04/19 05:10 Labs: Laboratory Results - last 24 hr 08/04/19 08/04/19 05:10 05:10 WBC 7.4 RBC 3.14 L Hgb 9.9 L Hct 29.1 L MCV 92.9 MCH 31.5 MCHC 33.9 RDW 18.3 H Plt Count 184 Neut % (Auto) 50.5 Lymph % (Auto) 37.2 [place] % (Auto) 9.5 Eos % (Auto) 2.1 Baso % (Auto) 0.7 Neut # (Auto) 3800 Lymph # (Auto) 2800 [place] # (Auto) 700 Eos # (Auto) 200 Baso # (Auto) 100 Sodium 131 L Potassium 4.2 Chloride 99 Carbon Dioxide 27 BUN 44 H Creatinine 1.20 H Estimated GFR 43.9 L BUN/Creatinine Ratio 36.7 H Glucose 93 Calcium 7.7 L Total Bilirubin 0.7 AST 21 ALT 15 Alkaline Phosphatase 61 Total Protein 4.9 L Albumin 2.0 L Globulin 2.9 Albumin/Globulin Ratio 0.7 L Discharge Plan Discharge Plan Patient Disposition: Home Discharge Med Rec/Prescriptions Prescriptions: New liothyronine [Cytomel] 5 mcg Tablet 5 mcg PO DAILY 30 Days RF: 0 potassium chloride [Klor-Con M20] 20 mEq Tablet,Er Particles/Crystals 20 meq PO DAILYCC 30 Days RF: 0 spironolactone 50 mg Tablet 100 mg PO DAILY 30 Days RF: 0 Xifaxan 550 mg Tablet 550 mg PO BID Qty: 10 RF: 0 furosemide [Lasix] 40 mg tablet 40 mg PO QAM Qty: 30 RF: 0 Continued levothyroxine 175 mcg Tablet 175 mcg PO DAILY RF: 0 levothyroxine 25 mcg Tablet 25 mcg PO 2XW RF: 0 Discontinued furosemide 20 mg Tablet 20 mg PO DAILY RF: 0 Follow up/Referrals: Ruthie Reynoso MD [Primary Care Provider] - Provider Discharge Instructions Diet: Low-sodium and Low-cholesterol Activity: as tolerated Oxygen: not indicated Discharge Data Primary Care Provider: Ruthie Reynoso Attending Provider: Daniela Carter Admit Date/Time: 08/01/19 19:07 Discharges patient from system. Discharge Date/Time: 08/04/19 15:15
--- NOTE | 2019-08-05 08:51 | CM.DPC ---
DCP Cont: Faxed discharge packet (signed meds, PASRR and discharge summary) to [facility] at [phone]. Fax confirmation scanned in. Adriana Caballero Quality Specialist
== END 2019-08-04 15:15 | disposition home or self-care (01) ==
LOC: ED 18:30 → AC 19:35
PROVIDERS: Internal Medicine; Nurse Practitioner Gerontology; Admitting Provider Internal Medicine; Emergency Provider Emergency Medicine; PCP Internal Medicine; Visit Provider Internal Medicine
DX: K74.4 Secondary biliary cirrhosis (principal); R53.1 Weakness; R18.8 Other ascites; I50.32 Chronic diastolic (congestive) heart failure; K76.6 Portal hypertension; I85.10 Secondary esophageal varices without bleeding; B19.20 Unspecified viral hepatitis C without hepatic coma
CPT/HCPCS: 36415; 36591; 71045; 80053; 81001; 82140; 82550; 82962; 83880; 84439; 84443; 84484; 85025; 85610; 85730; 87493; 93005; 93970; 96365; 96366; 96375; 96376; 97162; 97165; 97530; 97535; 99282; 99285; G0378; J1940; J2405; P9041

== ENCOUNTER 2019-09-26 08:05 | Emergency (ER) | payer MEDICARE, MEDICAID, SELFPAY ==
[2019-09-26] VITALS (7 sets, daily range): BP systolic 90–105; BP diastolic 44–69; PULSE 73–78; RESP 14–20; TEMP 36.5; O2SAT 93–100; BMI 46.5
[2019-09-26 09:18] LABS: Alanine Aminotransferase 34 IU/L (<35); Albumin 2.2 g/dL (3.5-5.0); Albumin Globulin Ratio 0.7 (1.0-2.8); Alkaline Phosphatase 319 U/L (38-126); Aspartate Aminotransferase 49 IU/L (14-36); Bilirubin Total 0.5 mg/dL (0.2-1.3); Blood Urea Nitrogen 35 mg/dL (7-17); Calcium 8.1 mg/dL (8.4-10.2); Carbon Dioxide 21 mmol/L (22-32); Chloride 107 mmol/L (98-107); Estimated Glomerular Filt Rate 54.2 mL/min (>60); Glucose 87 mg/dL (80-110); HEMOLYSIS < 15 (0-50); Sodium 133 mmol/L (137-145); Total Protein 5.2 g/dL (6.3-8.2)
--- NOTE | 2019-09-26 09:19 | DI.RAD.S_ITS ---
PROCEDURE: XR CHEST 1V INDICATIONS: edema, concern for acute on chronic liver failure TECHNIQUE: One view of the chest was acquired. COMPARISON: [facility], CR, XR CHEST 1V, 08/01/2019, 14:49. FINDINGS: Surgical changes and devices: None. Lungs and pleura: There is a vague density demonstrating a meniscal sign at the right lung base that obscures the diaphragm. Increased attenuation at the right lung base is also present. There slight blunting of left costophrenic angle. The pulmonary vascular markings are mildly increased. There is no pneumothorax. Mediastinum: Mediastinal contours appear normal. Heart size is normal. Bones and chest wall: No suspicious bony lesions. Bone mineralization is decreased. Age-appropriate degenerative changes of the spine and shoulders are present, but not adequately characterized. Overlying soft tissues appear unremarkable. IMPRESSION: 1. Small bilateral effusions (right greater than left) with associated atelectasis. Please correlate clinically to exclude pneumonia. 2. Probable mild vascular congestion. Dictated by: Lee Estrada M.D. on 09/26/2019 at 8:40 Approved by: Lee Estrada M.D. on 09/26/2019 at 8:42
[2019-09-26 09:33] LABS: Hematocrit 23.8 % (36-46); Hemoglobin 7.9 g/dL (12.0-16.0); Mean Corpuscular HGB Conc 33.4 % (30-36); Mean Corpuscular Hemoglobin 30.7 PG (26-34); Mean Corpuscular Volume 91.7 fL (80-100); Platelet Count 309 X10^3/uL (150-400); Red Blood Cell Count 2.59 X10^6/uL (4.0-5.2); Red Cell Distribution Width 15.6 % (11.6-14.8); White Blood Cell Count 13.3 X10^3/uL (4.5-11.0)
[2019-09-26 09:36] LABS: Add Manual Diff / Slide Review YES
[2019-09-26 09:59] LABS: Lipase 76 U/L (23-300)
[2019-09-26 10:02] LABS: Neutrophils Absolute Manual 8246 /uL (3000-5900); Total Cells Counted 100
[2019-09-26 10:03] LABS: Hypochromasia 1+; Platelet Estimate Adequate on smear; Poikilocytosis 1+
[2019-09-26 10:04] LABS: B Type Natriuretic Peptide 281 (<100)
--- NOTE | 2019-09-26 10:55 | ED.SKABFB ---
HPI - Skin/Abscess/Foreign Bdy General Chief complaint: Skin/Abscess/Foreign Body Stated complaint: Edema L arm, weeping Time Seen by Provider: 09/26/19 11:19 Source: patient and EMS Mode of arrival: EMS Limitations: physical limitation History of Present Illness HPI narrative: This a 74-year-old female comes to the emergency department with complaint of edema in her left arm and weeping. Patient states that she has had increasing swelling in her extremities particularly her lower extremities but also her arms. She states she has scratched her arm which she thinks is where the weeping is coming from. She denies any fevers or chills she has not felt more confused she denies any chest pain or pressure. She denies any shortness of breath. She states that she does have a history of hepatitis C which is untreated hypertension and gastroesophageal varices. Patient also has a history of C diff. She was sent from the nursing. They mikey labs on Thursday and states that they were elevated at that time. Patient has not been having any nausea or vomiting, no issues with bowel movements or urination that are new. Related Data Home Medications Medication Instructions Recorded Confirmed levothyroxine 175 mcg PO DAILY 12/24/18 08/01/19 levothyroxine 25 mcg PO 2XW 08/01/19 08/01/19 Previous Rx's Medication Instructions Recorded furosemide [Lasix] 40 mg PO QAM #30 tab 08/04/19 rifaximin [Xifaxan] 550 mg PO BID #10 tab 08/04/19 Allergies Allergy/AdvReac Type Severity Reaction Status Date / Time morphine Allergy Verified 08/01/19 14:27 Review of Systems Review of Systems ROS Unobtainable: All systems reviewed & are unremarkable except as noted in HPI and below Constitutional Constitutional: Denies chills, Denies fever(s), Denies lethargy and Denies weakness Cardiovascular Cardiovascular: Denies chest pain, Denies irregular heart rhythm, Denies lightheadedness, Denies palpitations, Denies dyspnea, Denies dyspnea on exertion and Denies orthopnea Respiratory Respiratory: Denies cough, Denies dyspnea, Denies dyspnea on exertion and Denies wheezing Gastrointestinal Gastrointestinal: Denies abdominal pain, Denies melena, Denies hematochezia, Denies change in bowel habits, Denies diarrhea, Denies nausea and Denies vomiting Genitourinary Genitourinary: Denies hematuria, Denies urinary frequency, Denies dysuria, Denies flank pain, Denies urinary incontinence and Denies urinary urgency Musculoskeletal Musculoskeletal: Denies muscle weakness, Denies numbness and Reports other (edema of lower extremities.) Neurologic Neurologic: Denies numbness and Denies weakness Endocrine Endocrine: Denies palpitations Allergic/Immunologic Allergic/Immunologic: Denies wheezing Patient History Medical History Cirrhosis of liver with ascites (Acute) Hepatitis C (Acute) History of Clostridium difficile infection (Acute) Hypothyroid (Acute) Mammogram normal (Acute) Portal hypertension (Acute) Surgical History History of phacoemulsification of cataract of both eyes with intraocular lens implantation (Acute) History of tonsillectomy Social History household members: family and children Smoking Status: Never smoker alcohol intake: never alcohol intake frequency: holidays/special occasions only Substance Use Type: does not use Exam Narrative Exam Narrative: GENERAL: Alert and oriented x three, obese female in mild distress. HEENT: Head normocephalic, atraumatic, EOMI, pupils reactive, face symmetric, moist mucous membranes NECK: Supple, full range of motion CARDIOVASCULAR: Regular rate and rhythm without murmurs, rubs or gallops. RESPIRATORY: Breath sounds equal bilaterally, no wheezes rales or rhonchi. ABDOMEN: Soft, distended, positive fluid wave. Nontender. Normoactive bowel sounds all 4 quadrants. No guarding or rebound, rigidity, no mass : No CVA tenderness EXTREMITIES: Normal range of motion, no clubbing. Patient has edema bilateral lower extremities which is 2+. She also has some mild edema of bilateral upper extremities. patient has a small abrasion on her left arm which is weeping clear serosanguineous drainage. Neurovascularly intact NEUROLOGICAL: Cranial nerves II through XII grossly intact. Moving all extremities SKIN: Warm, dry, no petechiae, no rashes or lesions other than reported. Initial Vital Signs Initial Vital Signs: Vital Signs Temperature 97.7 F 09/26/19 08:10 Pulse Rate 76 09/26/19 08:10 Respiratory Rate 14 09/26/19 08:10 Blood Pressure 90/45 L 09/26/19 08:10 Pulse Oximetry 96 09/26/19 08:10 Course Orders Ordered: ED Orders 09/26/19 08:33 Partial Thromboplastin Time Stat Prothrombin Time INR Stat 09/26/19 08:53 B Type Natriuretic Peptide Stat CMP [Comprehensive Metabolic Panel] Stat Complete Blood Count AUTO DIFF Stat Free T4 Free Thyroxine Stat Lipase Stat Thyroid Stimulating Hormone Stat Troponin I Stat 09/26/19 09:19 XR chest 1V Stat 09/26/19 11:19 US abdomen complete Stat 09/26/19 11:21 EKG-12 Lead Stat 09/26/19 11:44 Ammonia (NH3) Stat 09/26/19 13:07 US paracentesis Stat Discontinued Medications Furosemide (Lasix) 40 mg IV NOW ONE Stop: 09/26/19 11:20 Last Admin: 09/26/19 11:58 Dose: 40 mg Documented by: GHAZALA Vital Signs Vital signs: Vital Signs - 8 hr 09/26/19 08:10 09/26/19 08:13 09/26/19 12:30 Temperature 97.7 F 97.7 F Pulse Rate 76 76 75 Respiratory Rate 14 14 16 Blood Pressure 90/45 L Blood Pressure [Right Arm] 90/45 L 91/44 L Pulse Oximetry 96 96 93 09/26/19 13:50 09/26/19 14:20 09/26/19 15:00 Temperature Pulse Rate 73 78 73 Respiratory Rate 15 20 15 Blood Pressure Blood Pressure [Right Arm] 94/45 L 94/57 L 105/69 Pulse Oximetry 97 96 97 MDM - Skin/Abscess/Foreign Bdy Lab Data Attestation: I reviewed the patient's lab results. Result diagrams: 09/26/19 08:53 09/26/19 08:53 Labs: Lab Results 09/26/19 09/26/19 09/26/19 Range/Units 08:33 08:53 08:53 WBC 13.3 H (4.5-11.0) X10^3/uL RBC 2.59 L (4.0-5.2) X10^6/uL Hgb 7.9 L (12.0-16.0) g/dL Hct 23.8 L (36-46) % MCV 91.7 (80-100) fL MCH 30.7 (26-34) PG MCHC 33.4 (30-36) % RDW 15.6 H (11.6-14.8) % Plt Count 309 (150-400) X10^3/uL Neut % (Auto) Not Reportable Lymph % (Auto) Not Reportable [place] % (Auto) Not Reportable Eos % (Auto) Not Reportable Baso % (Auto) Not Reportable Lymph # (Auto) Not Reportable [place] # (Auto) Not Reportable Baso # (Auto) Not Reportable Total Counted 100 Seg Neutrophils % 60.0 (38-70) % Band Neutrophils % 2.0 L (3-7) % Lymphocytes % (Manual) 31.0 (25-45) % Monocytes % (Manual) 5.0 (2-11) % Metamyelocytes % 2.0 H (-0) % Neutrophils # (Manual) 8246 H (7178-6022) /uL Platelet Estimate Adequate on smear RBC Morphology See below Hypochromasia 1+ H Poikilocytosis 1+ H PT 12.0 (10.1-12.7) SECONDS INR 1.0 (0.9-1.3) APTT 29 D (26.4-36.2) SECONDS Sodium 133 L (137-145) mmol/L Potassium 5.0 (3.4-5.1) mmol/L Chloride 107 (98-107) mmol/L Carbon Dioxide 21 L (22-32) mmol/L BUN 35 H (7-17) mg/dL Creatinine 1.00 (0.52-1.04) mg/dL Estimated GFR 54.2 L (>60) mL/min BUN/Creatinine Ratio 35.0 H (6-22) Glucose 87 (80-110) mg/dL Calcium 8.1 L (8.4-10.2) mg/dL Total Bilirubin 0.5 (0.2-1.3) mg/dL AST 49 H (14-36) IU/L ALT 34 (<35) IU/L Alkaline Phosphatase 319 H (38-126) U/L Ammonia (9-30) umol/L Troponin I (0.01-0.034) ng/mL B-Natriuretic Peptide (<100) Total Protein 5.2 L (6.3-8.2) g/dL Albumin 2.2 L (3.5-5.0) g/dL Globulin 3.0 (1.7-4.1) g/dL Albumin/Globulin Ratio 0.7 L (1.0-2.8) Lipase (23-300) U/L TSH (0.47-4.68) uIU/mL Free T4 (0.78-2.19) ng/dL 09/26/19 09/26/19 09/26/19 Range/Units 08:53 08:53 08:53 WBC (4.5-11.0) X10^3/uL RBC (4.0-5.2) X10^6/uL Hgb (12.0-16.0) g/dL Hct (36-46) % MCV (80-100) fL MCH (26-34) PG MCHC (30-36) % RDW (11.6-14.8) % Plt Count (150-400) X10^3/uL Neut % (Auto) Lymph % (Auto) [place] % (Auto) Eos % (Auto) Baso % (Auto) Lymph # (Auto) [place] # (Auto) Baso # (Auto) Total Counted Seg Neutrophils % (38-70) % Band Neutrophils % (3-7) % Lymphocytes % (Manual) (25-45) % Monocytes % (Manual) (2-11) % Metamyelocytes % (-0) % Neutrophils # (Manual) (3534-6289) /uL Platelet Estimate RBC Morphology Hypochromasia Poikilocytosis PT (10.1-12.7) SECONDS INR (0.9-1.3) APTT (26.4-36.2) SECONDS Sodium (137-145) mmol/L Potassium (3.4-5.1) mmol/L Chloride (98-107) mmol/L Carbon Dioxide (22-32) mmol/L BUN (7-17) mg/dL Creatinine (0.52-1.04) mg/dL Estimated GFR (>60) mL/min BUN/Creatinine Ratio (6-22) Glucose (80-110) mg/dL Calcium (8.4-10.2) mg/dL Total Bilirubin (0.2-1.3) mg/dL AST (14-36) IU/L ALT (<35) IU/L Alkaline Phosphatase (38-126) U/L Ammonia (9-30) umol/L Troponin I (0.01-0.034) ng/mL B-Natriuretic Peptide 281 H (<100) Total Protein (6.3-8.2) g/dL Albumin (3.5-5.0) g/dL Globulin (1.7-4.1) g/dL Albumin/Globulin Ratio (1.0-2.8) Lipase 76 (23-300) U/L TSH 20.50 H (0.47-4.68) uIU/mL Free T4 1.42 (0.78-2.19) ng/dL 09/26/19 09/26/19 Range/Units 08:53 11:44 WBC (4.5-11.0) X10^3/uL RBC (4.0-5.2) X10^6/uL Hgb (12.0-16.0) g/dL Hct (36-46) % MCV (80-100) fL MCH (26-34) PG MCHC (30-36) % RDW (11.6-14.8) % Plt Count (150-400) X10^3/uL Neut % (Auto) Lymph % (Auto) [place] % (Auto) Eos % (Auto) Baso % (Auto) Lymph # (Auto) [place] # (Auto) Baso # (Auto) Total Counted Seg Neutrophils % (38-70) % Band Neutrophils % (3-7) % Lymphocytes % (Manual) (25-45) % Monocytes % (Manual) (2-11) % Metamyelocytes % (-0) % Neutrophils # (Manual) (3156-2290) /uL Platelet Estimate RBC Morphology Hypochromasia Poikilocytosis PT (10.1-12.7) SECONDS INR (0.9-1.3) APTT (26.4-36.2) SECONDS Sodium (137-145) mmol/L Potassium (3.4-5.1) mmol/L Chloride (98-107) mmol/L Carbon Dioxide (22-32) mmol/L BUN (7-17) mg/dL Creatinine (0.52-1.04) mg/dL Estimated GFR (>60) mL/min BUN/Creatinine Ratio (6-22) Glucose (80-110) mg/dL Calcium (8.4-10.2) mg/dL Total Bilirubin (0.2-1.3) mg/dL AST (14-36) IU/L ALT (<35) IU/L Alkaline Phosphatase (38-126) U/L Ammonia < 9.0 L (9-30) umol/L Troponin I < 0.012 (0.01-0.034) ng/mL B-Natriuretic Peptide (<100) Total Protein (6.3-8.2) g/dL Albumin (3.5-5.0) g/dL Globulin (1.7-4.1) g/dL Albumin/Globulin Ratio (1.0-2.8) Lipase (23-300) U/L TSH (0.47-4.68) uIU/mL Free T4 (0.78-2.19) ng/dL Point of Care Testing Stool Occult Blood Negative Imaging Data Chest x-ray: Radiologist's impression: [address] [address] XRay Report Signed Patient: Daniela De Souza BMR#: [id number] : 5Acct:[id number] Age/Sex: 74 / FDate of Service: 09/26/19 Loc: ED Accession Number: [id number] Procedure: XR chest 1V Ordering Provider: Ama Adler D.O. PROCEDURE: XR CHEST 1V INDICATIONS: edema, concern for acute on chronic liver failure TECHNIQUE: One view of the chest was acquired. COMPARISON: [facility], , XR CHEST 1V, 08/01/2019, 14:49. FINDINGS: Surgical changes and devices: None. Lungs and pleura: There is a vague density demonstrating a meniscal sign at the right lung base that obscures the diaphragm. Increased attenuation at the right lung base is also present. There slight blunting of left costophrenic angle. The pulmonary vascular markings are mildly increased. There is no pneumothorax. Mediastinum: Mediastinal contours appear normal. Heart size is normal. Bones and chest wall: No suspicious bony lesions. Bone mineralization is decreased. Age-appropriate degenerative changes of the spine and shoulders are present, but not adequately characterized. Overlying soft tissues appear unremarkable. IMPRESSION: 1. Small bilateral effusions (right greater than left) with associated atelectasis. Please correlate clinically to exclude pneumonia. 2. Probable mild vascular congestion. Dictated by: Lee Estrada M.D. on 09/26/2019 at 8:40 Approved by: Lee Estrada M.D. on 09/26/2019 at 8:42 ECG Data Attestation: I personally reviewed and interpreted this ECG as follows: Interpretation: Sinus rhythm rate of 70 P are 171 QRS 66 and QTC of 413. No ST elevation depression. Low voltage. MDM Narrative Medical decision making narrative: 74-year-old female comes to the emergency department with swelling of her extremities, increasing swelling of her abdomen. She has been here for liver failure before. They were on diuretics. She also apparently has thyroid issues and her TSH is continuing to trend upwards. She has some weeping from her left arm which appears to be secondary to her edema and has ascites. Patient lab work shows decreasing hemoglobin. Stool occult is negative, she is a slightly elevated white count. Patient has slightly elevated alk-phos. Electrolytes 133 with a CO2 of 21 and a BUN of 35. Ammonia less than 9. Troponins negative BNP is 281. Spoke with our hospitalist. Patient does have a decreasing troponin which is concerning I have not found a source, no hematemesis, no melena, no bright blood in her stool. Stool occult is negative. Patient has a history per report of varices. I spoke with the hospitalist and she asked if General surgery would be willing to scope and they are not as we do not have the capabilities to treat or repair if there is injury during a scope or if she was having active bleeding. I spoke with Dr. De Anda at [facility] who accepts for transfer. We discussed as there has been no obvious acute sign of bleeding will hold on octreotide drip. Patient did have 5 L removed with ultrasound-guided paracentesis via Dr. Francois (radiology) and patient has been tolerating well. Discharge Plan Departure Patient Disposition: [facility] Clinical Impression: Decompensation of cirrhosis of liver, Anemia, Elevated TSH Prescriptions: No Action levothyroxine 175 mcg Tablet 175 mcg PO DAILY RF: 0 levothyroxine 25 mcg Tablet 25 mcg PO 2XW RF: 0 Xifaxan 550 mg Tablet 550 mg PO BID Qty: 10 RF: 0 furosemide [Lasix] 40 mg tablet 40 mg PO QAM Qty: 30 RF: 0 Referrals: Ruthie Reynoso MD [Primary Care Provider] -
--- NOTE | 2019-09-26 11:19 | DI.US.S_ITS ---
PROCEDURE: US ABDOMEN COMPLETE INDICATIONS: LIVER FAILURE; ASCITIES TECHNIQUE: Real-time scanning was performed of the abdominal and retroperitoneal organs, with image documentation. COMPARISON: None. FINDINGS: Liver: The liver demonstrates normal size and a nodular appearance. Gallbladder: There is a 3.3 cm stone seen, with potential sludge. The gallbladder wall is not thickened, measuring 3 mm or less. No specific pericholecystic fluid is seen. The sonographic Calles sign is negative. Biliary ducts: Intrahepatic bile ducts are non-dilated. Extrahepatic bile duct caliber measures 7 mm. Normal is 6-7 mm or less in diameter, or 10 mm or less post-cholecystectomy. Pancreas: Not seen. Spleen: Spleen is normal in size and homogeneous in echotexture. Kidneys: Kidneys are normal in size and echotexture. Right kidney measures 10.5 cm long; left kidney measures 9.9 cm long. No hydronephrosis or nephrolithiasis. No solid masses. Aorta: Visualized aorta is normal in caliber at less than 3 cm. Iliacs: Not seen. IVC: Not seen. Miscellaneous: There is a moderate amount of ascites seen. IMPRESSION: Cirrhotic liver with moderate ascites. The left lower quadrant was marked at an appropriate site for paracentesis by the technologist. A gallstone can be seen, with apparent sludge also seen. No additional sonographic signs of cholecystitis. No biliary dilatation. Limited study, without visualization of the aorta, common iliac arteries, or the IVC. Dictated by: Negro Zepeda M.D. on 09/26/2019 at 11:16 Approved by: Negro Zepeda M.D. on 09/26/2019 at 11:24
[2019-09-26] MEDS: FUROSEMIDE 40 MG/4 ML VIAL IV (11:58)
[2019-09-26 12:01] LABS: Troponin I < 0.012 ng/mL (0.01-0.034)
[2019-09-26 12:04] LABS: Free T4, Direct Thyroxine 1.42 ng/dL (0.78-2.19)
[2019-09-26 12:06] LABS: Ammonia (NH3) < 9.0 umol/L (9-30)
--- NOTE | 2019-09-26 13:07 | DI.US.S_ITS ---
PROCEDURE: US PARACENTESIS INDICATIONS: ASCITIES TECHNIQUE: The indications, alternatives, benefits, risks, and complications of the procedure were explained to the patient. Written informed consent was obtained and placed in the chart. The abdomen and pelvis were examined sonographically, and an appropriate site was chosen for paracentesis. The skin was prepared and draped in the usual sterile fashion, and 1% lidocaine was infiltrated from the skin down through the peritoneal surface. A 19-gauge catheter-covered needle was then introduced into the peritoneal space, the catheter was advanced and the needle was withdrawn, and thereafter peritoneal fluid was withdrawn. The catheter was then removed and a dressing was applied. The fluid was discarded if the clinician did not order diagnostic testing of the fluid. COMPARISON: None. FINDINGS: Access site: Left lower quadrant Needle: One-Step centesis catheter with introducer needle. Fluid volume and description: 4900 cc of semi-chylous appearing fluid Fluid sent for diagnostic testing: As requested Medications: 1% lidocaine for local anaesthesia. Complications: None. IMPRESSION: Successful ultrasound-guided paracentesis. Dictated by: Seymour Francois M.D. on 09/26/2019 at 16:38 Approved by: Seymour Francois M.D. on 09/26/2019 at 16:38
[2019-09-26 13:12] LABS: PTT Partial Thromboplastin Tim 29 SECONDS (26.4-36.2)
--- NOTE | 2019-09-26 14:31 | PC.NURSE ---
Ultrasound and radiologist in to do paracentesis. 4,900 mL of fluid removed via suction. Provider notified and specimens sent to lab. Patient tolerated procedure well.
== END 2019-09-26 16:11 | disposition short-term general hospital (02) ==
PROVIDERS: Emergency Provider Emergency Medicine; PCP Internal Medicine
DX: K74.69 Other cirrhosis of liver (principal); D64.9 Anemia, unspecified; R79.89 Other specified abnormal findings of blood chemistry
CPT/HCPCS: 36415; 49083; 71045; 76700; 80053; 82140; 82272; 83690; 83880; 84439; 84443; 84484; 85025; 85610; 85730; 93005; 96374; 99283; 99285; J1940